=== PATIENT | male | born 1955 | race Caucasian/White ===

== ENCOUNTER 2023-03-10 09:43 | Outpatient (AMB) | payer OTHER, SELFPAY ==
--- NOTE | 2023-03-10 09:49 | MHC.PC.OV ---
Vital Signs 03/10/23 09:50 Height 6 ft Weight 214 lb BMI 29.0 BP 132/72 Blood Pressure Location Lt brachial Position Sitting Pulse 68 Pulse Source Pulse Oximeter Pulse Oximetry (%) 98 Oxygen Delivery Method Room Air Intake Visit Reasons: est care Intake Note: Patient is here as a new patient with concern of high blood pressure, left shoulder pain for 10 months, may have been from heavy lifting. Patient would like his meds refilled. Allergies No Known Allergies Allergy (Verified 03/10/23 09:52) Tobacco use date assessed: 03/10/23 Fall risk assessment: No Falls in past year Last assessed Fall Risk: 03/10/23 Dental Screening Dental Screen Date: 03/10/23 Did you have a dental visit in the last 12 months?: Yes Did you have a dental problem in the last 6 months where you did not have access to dental care?: No Was dental information given to patient?: Patient has dentist HPI est care HPI Details New patient Prior PCP:? Dr Valles [place] Last office visit/CPE: > 2 years Acute issue(s): L shoulder pain x10 months PMHx: Hypertension, Cardiology at [facility], HLD, DM, Neuropathy. SurgHx: R cataract, R 3rd finger FHx:Mom: CAD, [place]. Dad: Heart Diseae SocHx: Nonsmoker. EtOH 3 drinks a month. No drugs. [facility] Medical History (Updated 03/10/23 @ 11:28 by Allen Franco) Finger fracture, right Acute eczema High cholesterol High blood pressure Surgical History (Updated 03/10/23 @ 10:00 by Marielos Thompson CMA) History of right cataract surgery Family History (Updated 03/10/23 @ 10:01 by Marielos Thompson CMA) Mother Heart attack Social History (Updated 03/10/23 @ 10:04 by Marielos Thompson CMA) Household Members: Spouse Housing: House Are you a primary care tech to a significant other at home: No Do you presently have visiting nurse or other home services: No 75 years or older and lives alone: No Alcohol intake: current Patient Tobacco Use Status: Never used Tobacco e-Cigarette/Vaping Use: Never Used service: No Current occupational status: retired Cognitive needs: No Hearing needs: No Vision needs: No Questionnaire PHQ-9 Over the last 2 weeks, how often have you been bothered by any of the following problems? 1. Little interest or pleasure in doing things: not at all 2. Feeling down, depressed, or hopeless: not at all 3. Trouble falling or staying asleep, or sleeping too much: not at all 4. Feeling tired or having little energy: not at all 5. Poor appetite or overeating: not at all 6. Feeling bad about yourself - or that you are a failure or have let yourself or your family down: not at all 7. Trouble concentrating on things, such as reading the newspaper or watching television: not at all 8. Moving or speaking so slowly that other people could have noticed. Or the opposite - being so fidgety or restless that you have been moving around a lot more than usual: not at all 9. Thoughts that you would be better off or of hurting yourself in some way: not at all Total score: 0 Source: Developed by Drs. Hoang Ndiaye, Anita Pryor, Napoleon Cespedes and colleagues, with an educational chuck from [employer]. Thrive Questionnaire I am a: Patient What is your living situation today?: I have a steady place to live Within the past 12 months, did the food you bought not last and you didn't have the money to get more?: Never true Within the past 12 months, did you worry whether your food would run out before you got money to buy more?: Never true Do you have trouble paying for medicines?: No Do you have trouble getting transportation to medical appointments?: No Do you have trouble paying your heating and electricity bill?: No Do you have trouble taking care of your child, family member or friend?: No Do you have trouble with day-to-day activities such as bathing, preparing meals, shopping, managing finances, etc.?: No Are you currently unemployed and looking for a job?: No Are you interested in more education?: No AUDIT C Alcohol Use Questionnaire (AUDIT-C) 1. How often do you have a drink containing alcohol?: Monthly or less 2. How many drinks containing alcohol do you have on a typical day when you are drinking?: 1 or 2 3. How often do you have six or more drinks on one occasion?: Never Total Score: 1 MARTI-7 AMB Questionnaire MARTI-7 Date MARTI - 7 assessed: 03/10/23 Feeling nervous, anxious, or on edge: 0 = Not at all Not being able to stop or control worryin = Not at all Worrying too much about different things: 0 = Not at all Trouble relaxin = Not at all Being so restless that it is hard to sit still: 0 = Not at all Becoming easily annoyed or irritable: 0 = Not at all Feeling afraid as if something awful might happen: 0 = Not at all Total MARTI-7 score (0-4 normal; 5-9 mild; 10-14 moderate; 15-21 severe): 0 Source: Developed by Drs. Hoang Ndiaye, Anita Pryor, Napoleon Cespedes and colleagues, with an educational chuck from [employer]. Review of Systems Musc Details: L shoulder pain Physical exam (Primary Care) Vital Signs: Last Vital Signs Pulse 68 03/10/23 09:50 BP 132/72 03/10/23 09:50 Pulse Ox 98 03/10/23 09:50 Oxygen Delivery Method Room Air 03/10/23 09:50 BMI result Body Mass Index 29.0 Tobacco/Smoking Status: Tobacco use Status Tobacco use date assessed 03/10/23 03/10/23 10:10 Patient Tobacco Use Status Never used Tobacco 03/10/23 10:10 e-Cigarette/Vaping Use Never Used 03/10/23 10:10 PHQ-9: PHQ-9 Score PHQ-9: Total score 0 03/10/23 10:17 Assessment and Plan Assessment & Plan (1) High blood pressure: Code(s): I10 - Essential (primary) hypertension Plan: Blood pressure seems controlled on current medication regimen. Goal is less than 140/90; unclear if patient has any history of coronary artery disease in which case would prefer a goal of less than 130/80. Continue current medication regimen (2) Left shoulder pain: Code(s): M25.512 - Pain in left shoulder Plan: Mechanical left shoulder pain Pain with abduction and internal rotation. Also has some pain with passive abduction I suspect rotator cuff injury but also may have some Arthritis. Start physical therapy Will refer to ortho (3) Hyperlipidemia: Code(s): E78.5 - Hyperlipidemia, unspecified Plan: Hyperlipidemia and patient was prescribed statins in the past including Crestor. He did not tolerate this. Currently not on any medication for high cholesterol (4) Diabetes: Code(s): E11.9 - Type 2 diabetes mellitus without complications Plan: Patient recollects A1c in the 7s Check A1c. Will advise patient (5) Neuropathy: Code(s): G62.9 - Polyneuropathy, unspecified Plan: May have uncontrolled diabetes. Checking labs (6) Cerumen impaction: Code(s): H61.20 - Impacted cerumen, unspecified ear Plan: Can use Debrox drops (7) Jaw pain: Code(s): R68.84 - Jaw pain Plan: Slightly poor historian but patient notes that he gets some jaw pain with exertion. This goes away shortly after exertion. He acknowledges hypertension and is on 4 medications for this. He acknowledges hyperlipidemia and also diabetes. These are all risk factors for coronary artery disease. He has a strong family history of coronary artery disease. 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 Denies heart attack or coronary artery disease but seems to have had quite a few cardiac workups in the past. No recent workup. Concerned that exertional jaw pain represents an anginal symptom. EKG: Sinus rhythm with mild bradycardia. Normal axis, no hypertrophy, no ST-T-wave changes at rest. Told patient to stop any exertion if he has symptoms. If discomfort does not go away in a few minutes, he should go to the ED. Referred to Cardiology (8) Family history of early CAD: Code(s): Z82.49 - Family history of ischemic heart disease and other diseases of the circulatory system Plan: As above (9) Laboratory exam ordered as part of routine general medical examination: Code(s): Z00.00 - Encounter for general adult medical examination without abnormal findings Plan: Check labs Orders: Orders Comprehensive [place]. Panel Fast Today Z00.00 - Encounter for general adult medical examination without abnormal findings Lipid Panel Today Z00.00 - Encounter for general adult medical examination without abnormal findings Microalbumin, Random (w Creat) Today I10 - Essential (primary) hypertension Prostate Specific Antigen Scr Today Z12.5 - Encounter for screening for malignant neoplasm of prostate Complete Blood Count Auto Diff Today Z00.00 - Encounter for general adult medical examination without abnormal findings TSH reflex Free T4 Today Z00.00 - Encounter for general adult medical examination without abnormal findings UA and rflx microscopic Today Z00.00 - Encounter for general adult medical examination without abnormal findings Hemoglobin A1c Today R73.01 - Impaired fasting glucose AMB EKG-In Office Today I10 - Essential (primary) hypertension PT Evaluation and Treatment Today M25.512 - Pain in left shoulder Referrals Cardiology Referral E11.9 - Type 2 diabetes mellitus without complications, E78.5 - Hyperlipidemia, unspecified, I10 - Essential (primary) hypertension, R68.84 - Jaw pain, Z82.49 - Family history of ischemic heart disease and other diseases of the circulatory system Orthopedics Referral M25.512 - Pain in left shoulder Coding Level of Care Code New Pt Level 4 (89448) Diagnoses High blood pressure I10 Left shoulder pain M25.512 Hyperlipidemia E78.5 Diabetes E11.9 Neuropathy G62.9 Cerumen impaction H61.20 Jaw pain R68.84 Family history of early CAD Z82.49 Laboratory exam ordered as part of routine general medical examination Z00.00
[2023-03-10 09:50] VITALS: BP 132/72; PULSE 68; O2SAT 98; BMI 29.0
== END 2023-03-10 11:36 | disposition home or self-care (01) ==
PROVIDERS: Visit Provider Family Medicine
DX: I10 Essential (primary) hypertension (principal); E11.42 Type 2 diabetes mellitus with diabetic polyneuropathy; R68.84 Jaw pain; Z82.49 Family history of ischemic heart disease and other diseases of the circulatory system; M25.512 Pain in left shoulder; E78.5 Hyperlipidemia, unspecified; G62.9 Polyneuropathy, unspecified
CPT/HCPCS: 93000; 99204

== ENCOUNTER 2023-03-10 11:40 | Outpatient (REF) | payer OTHER, SELFPAY ==
[2023-03-10 14:27] LABS: MANUAL DIFF FLAG NO
[2023-03-10 14:41] LABS: Basophils Absolute Auto 0.1 X10*3/uL (0.0-0.2); Eosinophils Absolute Auto 0.2 X10*3/uL (0.0-0.4); Eosinophils Percent Auto 2.1 % (0-4); Hematocrit 48.2 % (42.0-52.0); Imm Gran Abs Auto 0.01 X10*3/uL (0.00-0.03); Imm Gran Pct Auto 0.1 % (0.0-0.4); Lymphocytes Percent Auto 27.9 % (20-40); Mean Corpuscular HGB Conc 33.2 g/dl (31.0-36.0); Mean Corpuscular Hemoglobin 28.7 pg (27.0-33.0); Mean Corpuscular Volume 86.4 fL (80.0-98.0); Mean Platelet Volume 10.3 fL (9.4-12.4); Monocytes Absolute Auto 0.9 X10*3/uL (0.1-1.2); Monocytes Percent Auto 12.3 % (2-11); Neutrophils Percent Auto 56.6 % (45-73); Platelet Count 271 X10*3/uL (160-400); Red Blood Count 5.58 X10*6/uL (4.60-5.80); Red Cell Distribution Width 13.2 % (11.0-16.0); White Blood Count 7.1 X10*3/uL (4.8-10.8)
[2023-03-10 14:44] LABS: Estimated Average Glucose 209 mg/dL; Hemoglobin A1c % 8.9 % (<6.0)
[2023-03-10 14:52] LABS: Appearance Urine Clear; Color Urine Yellow; Glucose Urine UA 500 mg/dL (Negative); Leukocyte Esterase Urine Negative (Negative); Nitrite Urine Negative (Negative); Urine Blood Negative (Negative); Urine Ketones Negative (Negative); Urine Protein Negative (Neg-Trace)
[2023-03-10 15:00] LABS: Alanine Aminotransferase 24 U/L (0-40); Albumin Level 4.6 g/dL (3.5-5.0); Alkaline Phosphatase 67 U/L (39-117); Anion Gap 15 (12-20); Aspartate Amino Transferase 18 U/L (5-37); Bilirubin Total 0.7 mg/dL (0.0-1.0); Blood Urea Nitrogen 14 mg/dL (9-16); Carbon Dioxide 26 mmol/L (22-29); Chloride 99 mmol/L (96-108); Cholesterol 294 mg/dL (<200); Estimated Glomerular Filt Rate > 60; Glucose Fasting 217 mg/dL (60-99); HDL Cholesterol 53 mg/dL (>40); LDL Cholesterol Calculated 217 mg/dL (<100); Potassium 3.8 mmol/L (3.3-5.1); Sodium 136 mmol/L (135-145); Total Protein 8.1 g/dL (6.5-8.0); Triglycerides 124 mg/dL (<150)
[2023-03-10 15:19] LABS: TSH reflex Free T4 1.46 uIU/mL (0.32-4.0)
[2023-03-10 15:36] LABS: Creatinine Urine 61.87 mg/dL; Microalbumin Urine < 5.0 mg/L
== END 2023-03-10 11:41 | disposition home or self-care (01) ==
LOC: HO.WFDLDS 11:40
PROVIDERS: Visit Provider Family Medicine
DX: Z00.00 Encounter for general adult medical examination without abnormal findings (principal); Z12.5 Encounter for screening for malignant neoplasm of prostate; I10 Essential (primary) hypertension; R73.01 Impaired fasting glucose
CPT/HCPCS: 36415; 80053; 80061; 81003; 82043; 82570; 83036; 84153; 84443; 85025

== ENCOUNTER 2023-03-23 08:13 | Outpatient (REF) | payer OTHER, SELFPAY | END 2023-03-23 08:14 | disposition home or self-care (01) | LOC: HO.HOSX 08:13 | PROVIDERS: Visit Provider Orthopaedic Surgery | DX: M75.42 Impingement syndrome of left shoulder (principal) | CPT/HCPCS: 73030 ==

== ENCOUNTER 2023-03-23 10:24 | Outpatient (AMB) | payer OTHER, SELFPAY ==
--- NOTE | 2023-03-23 11:01 | MHC.OFFVIS ---
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 The patient describes his pain as sharp and severe in nature. Most of the pain is along the lateral aspect of her shoulder. The patient states that he did injure his shoulder approximately 1 year ago while lifting a heavy box. The patient had acute onset of pain. Since that time he has had weakness when trying to lift his left hand above shoulder height. He has had multiple injections in the past. Most recent injection gave him minimal relief. He has also tried Tylenol and anti-inflammatory medicines which gave him only mild relief. He has done physical therapy for 12 weeks over the last 6 months which aggravated his pain. Allergies No Known Allergies Allergy (Verified 03/23/23 11:06) Medication List - Last Reconciled 03/23/23 by Maciej Rock MD amlodipine 10 mg PO DAILY 90 days losartan-hydrochlorothiazide 100-25 mg 1 tab PO DAILY 90 days metoprolol succinate ER 50 mg PO DAILY 90 days sildenafil 50 mg PO DAILY PRN [facility] Medical History (Updated 03/23/23 @ 11:02 by Maciej Rock MD) Finger fracture, right Acute eczema High cholesterol High blood pressure Surgical History (Updated 03/10/23 @ 10:00 by Marielos Thompson [facility]) History of right cataract surgery Family History (Updated 03/10/23 @ 10:01 by Marielos Thompson CMA) Mother Heart attack Social History Household Members: Spouse Housing: House Are you a primary day care supervisor to a significant other at home: No Do you presently have visiting nurse or other home services: No Alcohol intake: current Patient Tobacco Use Status: Never used Tobacco e-Cigarette/Vaping Use: Never Used service: No Current occupational status: retired 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 Cognitive needs: No Hearing needs: No Vision needs: No Physical Exam Vital Signs: BMI result Body Mass Index 29.0 Const Other: Well-nourished well-developed very friendly male awake alert and oriented x3 in no acute distress Extrem Other: Bilateral upper extremity examination shows good capillary refill, no skin lesions noted, normal sensation light touch Left shoulder examination shows decreased active range of motion but full passive range of motion when compared to his right shoulder, 4/5 strength with supraspinatus testing, positive impingement signs, tenderness over his acromioclavicular joint, no instability Results Reviewed Results Reviewed: X-rays of the patient's left shoulder show severe acromioclavicular joint narrowing, type 3 acromion, no acute bony abnormalities Assessment & Plan Assessment & Plan (1) Impingement syndrome of left shoulder: Code(s): M75.42 - Impingement syndrome of left shoulder Plan: Mr. Agudelo presents with left shoulder pain and weakness due to impingement syndrome, acromioclavicular joint arthritis and possible full-thickness rotator cuff tearing. Thus, I will send the patient for an MRI of his left shoulder for further evaluation. I will see him back once the MRI is completed to discuss the findings and treatment options. He will continue with his range of motion exercises in the meantime to prevent stiffness. Feel free to call me at any time should questions regarding his orthopedic management arise. I spent 22 minutes in reviewing the patient's records and imaging studies, seeing the patient and documenting in the medical record. Orders: Orders XR shoulder LT min 2V Today M25.512 - Pain in left shoulder MR shoulder LT wo con Today M75.42 - Impingement syndrome of left shoulder Coding Level of Care Code New Pt Level 2 (51096) Diagnoses Impingement syndrome of left shoulder M75.42
[2023-03-23 11:14] VITALS: BMI 29.0
== END 2023-03-23 11:28 | disposition home or self-care (01) ==
PROVIDERS: PCP Family Medicine; Visit Provider Orthopaedic Surgery
DX: M75.42 Impingement syndrome of left shoulder (principal)
CPT/HCPCS: 99202

== ENCOUNTER 2023-04-08 11:22 | Outpatient (REF) | payer OTHER, SELFPAY ==
--- NOTE | ~2023-04-08 | MR_ITS ---
EXAMINATION: MR SHOULDER WITHOUT CONTRAST, LEFT CLINICAL INFORMATION: Left shoulder pain. Impingement syndrome. COMPARISON: Left shoulder radiographs dated 03/23/2023. TECHNIQUE: Multisequence MR imaging of the left shoulder was obtained without contrast on a high-field strength scanner. FINDINGS: ROTATOR CUFF: Moderate supraspinatus tendinosis. Focal fraying/partial tearing just distal to the humeral head apex measuring up to 1.1 cm in ML dimension. Moderate infraspinatus and subscapularis tendinosis. Distal articular surface fraying/partial tearing measuring up to 3.2 cm in ML dimension. Moderate subscapularis muscle atrophy. BICEPS: Absence of the proximal long head biceps tendon, likely indicating a complete tear and retraction. CORACOACROMIAL ARCH: The undersurface of the acromion is curved with moderate subacromial spurring. Moderate acromioclavicular osteoarthritis. Fluid within subacromial subdeltoid bursa, which could indicate bursitis or be related to an occult full-thickness rotator cuff tendon defect. LABRUM/CAPSULE: Diffuse, heterogeneous signal throughout the superior and posterosuperior labrum, consistent with degenerative tearing. Linear fluid signal within the undersurface of the inferior labrum, consistent with a nondisplaced undersurface tear. Intact inferior joint capsule. GLENOHUMERAL JOINT/MARROW: Mild articular cartilage signal heterogeneity with small marginal osteophytes. Small joint effusion with synovitis. Inferior loose body measuring up to 0.6 cm. MR/MR shoulder LT wo con IMPRESSION: 1. Moderate supraspinatus tendinosis with focal fraying/partial tearing just distal to the humeral head apex measuring 1.1 cm in ML dimension. Moderate infraspinatus and subscapularis tendinosis with distal articular surface fraying/partial tearing. Moderate subscapularis muscle atrophy. 2. Complete tear and retraction of the proximal long head biceps tendon. 3. Moderate acromioclavicular osteoarthritis with moderate subacromial spurring. Fluid within the subacromial subdeltoid bursa, which could indicate bursitis or be related to an occult full-thickness rotator cuff tendon defect. 4. Diffuse degenerative tearing of the superior and posterosuperior labrum. Nondisplaced undersurface tear of the inferior labrum. 5. Mild glenohumeral osteoarthritis. Small joint effusion with synovitis. Inferior loose body measuring up to 0.6 cm.
== END 2023-04-08 11:23 | disposition home or self-care (01) ==
LOC: HO.MRI 11:22
PROVIDERS: PCP Family Medicine; Visit Provider Orthopaedic Surgery
DX: M75.42 Impingement syndrome of left shoulder (principal)
CPT/HCPCS: 73221

== ENCOUNTER 2023-04-14 13:02 | Outpatient (AMB) | payer OTHER, SELFPAY ==
--- NOTE | 2023-04-14 13:15 | A.OFFPC_ITS ---
Vital Signs 04/14/23 13:17 Height 6 ft Weight 216 lb 4 oz BMI 29.3 BP 128/64 Blood Pressure Location Lt brachial Position Sitting Respiration 13 Pulse 62 Pulse Source Pulse Oximeter Temp 97.9 F Temp Source Temporal Artery Scan Pulse Oximetry (%) 99 Oxygen Delivery Method Room Air Intake Visit Reasons: sore throat,runny nose Intake Note: Patient states that he has been experiencing sore throat, runny nose and spitting up green phlegm when he coughs. Patient states that its mostly at night when his cough is persistent. Patient has a surgery on 05/26/23 for his left shoulder. 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 Accompanied by: Self / Same As Patient Allergies No Known Allergies Allergy (Verified 04/14/23 13:23) Tobacco use date assessed: 03/10/23 Fall risk assessment: No Falls in past year Last assessed Fall Risk: 04/14/23 Dental Screening Dental Screen Date: 04/14/23 Did you have a dental visit in the last 12 months?: Yes Did you have a dental problem in the last 6 months where you did not have access to dental care?: No Was dental information given to patient?: Patient has dentist HPI sore throat,runny nose HPI0 Details 68 y/o male presents today with complain ts of a sore throat, nasal congestion and persistent cough at night. He reports he has been spitting out green phlegm. Labs were drawn 03/10/23. Reviewed labs with pt. A1c 8.9% and pt states he had been prescribed metformin which he has not used yet. Triglycerides 124. TC 294. LDL 217. HDL 53. Elevated PSA. 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 Hoang Ndiaye, Anita Pryor, Napoleon Cespedes and colleagues, with an educational chuck from [employer]. Review of Systems Const Denies chills, Denies fatigue, Denies fever(s), Denies headache(s) and Denies weakness ENT Denies dizziness, Denies headache(s), Reports nasal congestion and Reports sore throat Card Denies chest pain, Denies lightheadedness, Denies dyspnea and Denies other (Palpitations) Resp Reports cough, Denies dyspnea, Denies wheezing and Denies other ( shortness of breath) Musc Denies numbness and Denies tingling Neuro Denies dizziness, Denies headache(s), Denies numbness, Denies tingling, Denies paresthesias and Denies weakness Psych Denies anxiety and Denies depression Endo Denies fatigue Aller/Immun Denies wheezing Physical exam (Primary Care) Vital Signs: Last Vital Signs Temp 97.9 F 04/14/23 13:17 Pulse 62 04/14/23 13:17 Resp 13 04/14/23 13:17 BP 128/64 04/14/23 13:17 Pulse Ox 99 04/14/23 13:17 Oxygen Delivery Method Room Air 04/14/23 13:17 BMI result Body Mass Index 29.3 Tobacco/Smoking Status: Tobacco use Status Tobacco use date assessed 03/10/23 04/14/23 13:17 Patient Tobacco Use Status Never used Tobacco 04/14/23 13:17 e-Cigarette/Vaping Use Never Used 04/14/23 13:17 Const General: no acute distress and well developed Nutritional Appearance: well nourished Orientation/consciousness: patient oriented x3 HENMT Head: Yes normocephalic and Yes atraumatic Eyes General: appearance normal, both eyes and all related structures Pupils: Equal, round and reactive pupils present EOM: EOMs intact bilaterally Resp Other: Crackles bilateral bases Effort & Inspection: normal respiratory effort Cardio Rate: regular rate Rhythm: regular rhythm Heart sounds: S1 normal heart sound present, S2 normal heart sound present, no gallops, no murmurs and no rubs Neuro General: patient oriented x3 and gait normal Cranial nerves: Yes Equal, round and reactive pupils present Psych Affect: normal affect Assessment and Plan Assessment & Plan (1) Viral illness: Code(s): B34.9 - Viral infection, unspecified Plan: Viral?illness There?is?no?antibiotic?medication?for?viruses.??They?must?run?their?course.??Mos t?average?5-7?days?but?7-10?days?is?not?uncommon?and?up?to?14?d ays?is?still?possible.??A?cough?is?often?the?last?symptom?to?resolve?and?this?ca n?last?for?weeks?in?some?cases. Rest Hydrate?well?-??Drink?plenty?of?fluids.??Especially?water. Tylenol?or?ibuprofen?for?muscle?aches,?headache,?fever/discomfort Can?use?qhdd-[id number]-[id number]?medications?for?cough?such?as?Delsym?or?DayQuil.??Presc ription?cough?medicines?have?been?shown?to?be?no?better. Nasal?swab?for?COVID/flu/RSV?will?be?sent?to?the?lab (2) Abnormal lung sounds: Code(s): R09.89 - Other specified symptoms and signs involving the circulatory and res piratory systems Plan: Crackles?at?bilateral?bases left?worse?than?right Check?chest?x-ray Will?start?cephalexin. If?chest?x-ray?is?negative,?he?can?discontinue?antibiotic. Otherwise?finish?all?antibiotic?unless?there?is?a?problem.??Call?for?any?problem s (3) Left shoulder pain: Code(s): M25.512 - Pain in left shoulder Plan: Ongoing?left?shoulder?pain?and?now?followed?by?Dr. Rock, Ortho.??Plan?is?for?shoulder?arthroscopy?next?month. (4) Diabetes: Code(s): E11.9 - Type 2 diabetes mellitus without complications Plan: A1c?8.9%?shows?uncontrolled?diabetes He?was?given?metformin?in?the?past?but?has?not?been?taking?it. Sent?script?for?metformin?to?take?b.i.d..??Patient?somewhat?apprehensive?about?t aking?medicine?twice?a?day?but?will?try?this.??We?also?discussed?Trulicity (5) Elevated PSA: Code(s): R97.20 - Elevated prostate specific antigen [PSA] Plan: I?have?asked?him?to?repeat?the?PSA?level.??If?still?elevated,?will?refer?to?Urol ogy Orders: Orders SARS-CoV2/FLU/RSV Today B34.9 - Viral infection, unspecified, Z20.822 - Contact with and (suspected) exposure to COVID-19 XR chest 2V Today R09.89 - Other specified symptoms and signs involving the circulatory and respiratory systems Prostate Specific Antigen Scr Today R97.20 - Elevated prostate specific antigen [PSA], Z12.5 - Encounter for screening for malignant neoplasm of prostate Medications: New cephalexin 500 mg PO Q12H 20 caps 0RF 10 days metformin 500 mg PO BIDWMEAL 60 tabs 2RF 30 days Coding Level of Care Code Est Pt Level 4 (85244) Diagnoses Viral illness B34.9 Abnormal lung sounds R09.89 Left shoulder pain M25.512 Diabetes E11.9 Elevated PSA R97.20
[2023-04-14 13:17] VITALS: BP 128/64; PULSE 62; RESP 13; TEMP 36.6; O2SAT 99; BMI 29.3
== END 2023-04-14 14:08 | disposition home or self-care (01) ==
PROVIDERS: PCP Family Medicine; Visit Provider Family Medicine
DX: B34.9 Viral infection, unspecified (principal); R09.89 Other specified symptoms and signs involving the circulatory and respiratory systems; M25.512 Pain in left shoulder; E11.9 Type 2 diabetes mellitus without complications; R97.20 Elevated prostate specific antigen [PSA]
CPT/HCPCS: 99214

== ENCOUNTER 2023-04-14 13:45 | Outpatient (REF) | payer OTHER, SELFPAY ==
[2023-04-14 19:03] LABS: Influenza A PCR NEGATIVE (Negative); Influenza B PCR NEGATIVE (Negative); Resp Syncy Virus RNA Qual PCR NEGATIVE (Negative); SARS COV2 PCR INHOUSE NEGATIVE (Negative)
== END 2023-04-14 13:46 | disposition home or self-care (01) ==
LOC: HO.LAB 13:45
PROVIDERS: Visit Provider Family Medicine
DX: Z11.52 Encounter for screening for COVID-19 (principal); Z20.822 Contact with and (suspected) exposure to COVID-19; B34.9 Viral infection, unspecified
CPT/HCPCS: 0241U

== ENCOUNTER 2023-04-26 08:51 | Outpatient (REF) | payer OTHER, SELFPAY ==
--- NOTE | ~2023-04-26 | XR_ITS ---
EXAMINATION: XR CHEST CLINICAL INFORMATION: Cough x10 days COMPARISON: None available. TECHNIQUE: 2 views of the chest were obtained. FINDINGS: No significant abnormality is noted involving the heart, lungs, mediastinum, bony thorax or soft tissues. XR/XR chest 2V IMPRESSION: Unremarkable examination.
[2023-04-26 10:08] LABS: Prostate Specific Antigen Scr 3.76 ng/mL (<0.05-4.0)
== END 2023-04-26 08:52 | disposition home or self-care (01) ==
LOC: HO.LAB 08:51
PROVIDERS: PCP Family Medicine; Visit Provider Family Medicine
DX: Z12.5 Encounter for screening for malignant neoplasm of prostate (principal); R97.20 Elevated prostate specific antigen [PSA]; R09.89 Other specified symptoms and signs involving the circulatory and respiratory systems; M75.42 Impingement syndrome of left shoulder
CPT/HCPCS: 36415; 71046; 84153

== ENCOUNTER 2023-04-26 10:07 | Outpatient (AMB) | payer OTHER, SELFPAY ==
[2023-04-26 10:25] VITALS: BMI 29.3
--- NOTE | 2023-04-26 10:25 | A.OFFVIS_ITS ---
Intake Vital Signs 04/26/23 10:25 Height 6 ft Weight 216 lb BMI 29.3 Intake Visit Reasons: Pre-Lt Shld Intake Note: Jarod 68 yr old male presents for a new patient visit for his Left shoulder pain and weakness. The patient describes his pain as sharp and severe in nature. Most of the pain is along the lateral aspect of her shoulder. The patient states that he did injure his shoulder approximately 1 year ago while lifting a heavy box. The patient had acute onset of pain. Since that time he has had weakness when trying to lift his left hand above shoulder height. He has had multiple injections in the past. Most recent injection gave him minimal relief. He has also tried Tylenol and anti-inflammatory medicines which gave him only mild relief. He has done physical therapy for 12 weeks over the last 6 months which aggravated his pain. Allergies No Known Allergies Allergy (Verified 04/26/23 10:26) Medication List - Last Reconciled 04/26/23 by Maciej Rock MD amlodipine 10 mg PO DAILY 90 days cephalexin 500 mg PO Q12H 10 days losartan-hydrochlorothiazide 100-25 mg 1 tab PO DAILY 90 days metformin 500 mg PO BIDWMEAL 30 days metoprolol succinate ER 50 mg PO DAILY 90 days sildenafil 50 mg PO DAILY PRN PFSH Medical History Finger fracture, right Acute eczema High cholesterol High blood pressure Surgical History History of right cataract surgery Family History Mother Heart attack Social History Household Members: Spouse Housing: House Are you a primary manager medicare marketing to a significant other at home: No Do you presently have visiting nurse or other home services: No 75 years or older and lives alone: No Alcohol intake: current Patient Tobacco Use Status: Never used Tobacco e-Cigarette/Vaping Use: Never Used service: No Current occupational status: retired 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 Cognitive needs: No Hearing needs: No Vision needs: No Physical Exam Vital Signs: BMI result Body Mass Index 29.3 Const Other: Well-nourished well-developed very friendly male awake alert and oriented x3 in no acute distress Lungs - clear to auscultation bilaterally with symmetric expansion Cardiovascular exam - regular rate and rhythm Abdominal exam - soft nontender nondistended Extrem Other: Bilateral upper extremity examination shows good capillary refill, no skin lesions noted, normal sensation light touch Left shoulder examination shows slightly decreased range of motion when compared to his right shoulder, 4+ out of 5 strength with supraspinatus testing, positive impingement signs, tenderness over his acromioclavicular joints, no instability Results Reviewed Results Reviewed: MRI of the patient's left shoulder show severe acromioclavicular joint narrowing, a type 3 acromion, signal change within the supraspinatus tendon due to rotator cuff tendinosis versus a small tear Assessment & Plan Assessment & Plan (1) Impingement syndrome of left shoulder: Code(s): M75.42 - Impingement syndrome of left shoulder Plan Mr. Agudelo presents with left shoulder pain due to impingement syndrome, acromioclavicular joint arthritis and rotator cuff tendinosis versus a small tear. I had a lengthy discussion with the patient regarding the treatment options. At this point he has failed continued non operative treatments. The risks and benefits of left shoulder surgery were discussed at length with the patient. The patient wishes to proceed. Surgery will most likely involve left shoulder diagnostic arthroscopy with distal clavicle excision, acromioplasty and rotator cuff repair showed a full-thickness tear be found at the time of his surgery. I did give the patient a prescription for Percocet at his preoperative appointment. I will see the patient back 2-3 weeks following his surgery for his 1st postoperative appointment. The patient will follow-up as instructed. Feel free to call me at any time should questions regarding his orthopedic management arise. I spent 22 minutes in reviewing the patient's records and imaging studies, seeing the patient and documenting in the medical record. Medications: New oxycodone-acetaminophen 5-325 mg (Percocet) Partial Fill upon patient request. 2 tabs PO Q4H PRN 40 tabs 0RF pain Coding Level of Care Code Est Pt Level 2 (70255) Diagnoses Impingement syndrome of left shoulder M75.42
== END 2023-04-26 11:40 | disposition home or self-care (01) ==
LOC: HO.HOS 10:07
PROVIDERS: PCP Family Medicine; Visit Provider Orthopaedic Surgery
DX: M75.42 Impingement syndrome of left shoulder (principal)
CPT/HCPCS: 99212

== ENCOUNTER 2023-04-27 15:17 | Outpatient (AMB) | payer OTHER, SELFPAY ==
--- NOTE | 2023-04-27 15:24 | MHC.PC.OV ---
Vital Signs 04/27/23 15:27 Height 6 ft Weight 210 lb BMI 28.5 BP 112/68 Blood Pressure Location Lt brachial Position Sitting Respiration 13 Pulse 70 Pulse Source Pulse Oximeter Temp 97.7 F Temp Source Oral Pulse Oximetry (%) 98 Oxygen Delivery Method Room Air Intake Visit Reasons: still feeling sick after med is finish Intake Note: Patient finished Cephlaxin on Monday and is still feeling sick. Patient reports productive cough with yellow and green mucus. Cough is accompanied by a rattling noise. Patient denies feeling out of breath. Patient reports cough worsens at night. Patient obtained a chest xray yesterday which was unremarkable. Director Of Occupational Therapy Required: No Accompanied by: Self / Same As Patient Allergies No Known Allergies Allergy (Verified 04/27/23 15:42) Medication List - Last Reconciled 04/27/23 by Ese Bills CNP amlodipine 10 mg PO DAILY 90 days losartan-hydrochlorothiazide 100-25 mg 1 tab PO DAILY 90 days metformin 500 mg PO BIDWMEAL 30 days metoprolol succinate ER 50 mg PO DAILY 90 days oxycodone-acetaminophen 5-325 mg (Percocet) 2 tabs PO Q4H PRN sildenafil 50 mg PO DAILY PRN Tobacco use date assessed: 03/10/23 HPI HPI Comments History of Present Illness Details 68-year-old male presents with complaints of continued intermittent productive cough with clear phlegm. He notes that the cough wakes him up from his sleep sometimes at night. He notes that his other symptoms have subsided. He was treated for viral illness and above along sounds almost 2 weeks ago. Chest x-ray was normal. Viral testing was negative for COVID, flu, and RSV. He completed 10-day course of cephalexin. [facility] Medical History Finger fracture, right Acute eczema High cholesterol High blood pressure Surgical History History of right cataract surgery Family History Mother Heart attack Social History Household Members: Spouse Housing: House Are you a primary district manager primary care sales to a significant other at home: No Do you presently have visiting nurse or other home services: No 75 years or older and lives alone: No Alcohol intake: current Patient Tobacco Use Status: Never used Tobacco e-Cigarette/Vaping Use: Never Used service: No Current occupational status: retired 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 Hoang Ndiaye, Anita Pryor, Napoleon Cespedes and colleagues, with an educational chuck from [employer]. Review of Systems Const Details: Const Denies chills, Denies fatigue, Denies fever(s), Denies headache(s) and Denies weakness ENT Reports as per HPI Card Denies chest pain, Denies lightheadedness, Denies dyspnea and Denies other (Palpitations) Resp Reports cough, Denies dyspnea, Denies wheezing and Denies other ( shortness of breath) GI Denies abdominal pain, Denies melena, Denies hematochezia, Denies change in bowel habits, Denies dyspepsia and Denies nausea Denies hematuria and Denies dysuria Musc Denies abnormal gait, Denies myalgias, Denies arthralgias, Denies numbness and Denies tingling Skin/Breast Denies rash, Denies unusual bruising and Denies wounds Neuro Denies abnormal gait, Denies dizziness, Denies headache(s), Denies memory loss, Denies numbness, Denies Sensory deficit (Neuro), Denies tingling and Denies weakness Psych Denies anxiety, Denies depression, Denies memory loss Endo Denies cold intolerance, Denies fatigue, Denies heat intolerance, Denies polydipsia and Denies polyuria Aller/Immun Denies wheezing Physical exam (Primary Care) Vital Signs: Last Vital Signs Temp 97.7 F 04/27/23 15:27 Pulse 70 04/27/23 15:27 Resp 13 04/27/23 15:27 BP 112/68 04/27/23 15:27 Pulse Ox 98 04/27/23 15:27 Oxygen Delivery Method Room Air 04/27/23 15:27 BMI result Body Mass Index 28.5 Tobacco/Smoking Status: Tobacco use Status Tobacco use date assessed 03/10/23 04/27/23 15:25 Patient Tobacco Use Status Never used Tobacco 04/27/23 15:25 e-Cigarette/Vaping Use Never Used 04/27/23 15:25 Const Other: General: no acute distress and well developed Nutritional Appearance: well nourished Orientation/consciousness: patient oriented x3 HENMT Head is normocephalic Bilateral ear canal and TM are normal Nasal turbinates and oropharynx are pink and moist Sinuses are nontender with palpation No auricular or cervical lymphadenopathy Eyes General: appearance normal, both eyes and all related structures Pupils: Equal, round and reactive pupils present EOM: EOMs intact bilaterally Resp Effort & Inspection: normal respiratory effort Auscultation: clear to auscultation bilaterally Cardio Rate: regular rate Rhythm: regular rhythm Heart sounds: S1 normal heart sound present, S2 normal heart sound present, no gallops, no murmurs and no rubs GI Palpation (GI): No Abdominal aortic bruit present, Soft to palpation, nontender, No hepatosplenomegaly present and No Rebound tenderness present Auscultation: normal bowel sounds General: Yes no CVA tenderness Back/Spine/Pelvis Back: no CVA tenderness Cervical Spine: cervical ROM normal and No Cervical spine tenderness Thoracic/Lumbar Spine: thoraco-lumbar ROM normal, No pain with thoraco-lumbar ROM, No thoracic spinal tenderness and No lumbar spinal tenderness Extrem General: Yes normal to inspection, No edema and No calf tenderness Skin General: warm and dry. Normal skin color. Normal skin turgor Neuro General: patient oriented x3, gait normal and no focal neuro deficit Cranial nerves: Yes Equal, round and reactive pupils present Cognition (Neuro): normal cognition Gait exam (Neuro): Normal gait present Sensory Exam: No Sensory deficit (Neuro) Psych Appearance: grossly normal Affect: normal affect Attitude: cooperative Thought process: Normal thought process present Assessment and Plan Assessment & Plan (1) Cough: Code(s): R05.9 - Cough, unspecified Qualifiers: Cough type: acute Qualified Code(s): R05.1 - Acute cough Plan: Likely viral illness though possibly allergies No exam evidence of bacterial infection No cough noted throughout the visit Viral illness There is no antibiotic medication for viruses.? They must run their course.? Most average 5-7 days but 7-10 days is not uncommon and up to 14 days is still possible.? A cough is often the last symptom to resolve and this can last for weeks in some cases. Rest Hydrate well -? Drink plenty of fluids.? Especially water. Tylenol or ibuprofen for muscle aches, headache, fever/discomfort Benzonatate as prescribed Recent chest x-ray and COVID-19/RSV tests were negative Return for new or worsening symptoms Verbalized understanding and agreed with treatment plan. Medications: New benzonatate 200 mg PO BID PRN 20 caps 0RF cough Coding Level of Care Code Est Pt Level 3 (88002) Diagnoses Acute cough R05.1 Cough type: acute
[2023-04-27 15:27] VITALS: BP 112/68; PULSE 70; RESP 13; TEMP 36.5; O2SAT 98; BMI 28.5
== END 2023-04-27 16:03 | disposition home or self-care (01) ==
PROVIDERS: PCP Family Medicine; Visit Provider Nurse Practitioner Family
DX: R05.1 Acute cough (principal)
CPT/HCPCS: 99213

== ENCOUNTER 2023-05-26 05:55 | Day surgery (SDC) | payer OTHER, SELFPAY ==
[2023-05-23 14:50] VITALS: BMI 28.5
--- NOTE | 2023-05-25 11:37 | P.CONAN_ITS ---
Documented by User: Emiliana Argueta NP 05/25/23 11:39 HPI - Anesthesia Eval Consult details Narrative: 68yo M for Left Shoulder Arthroscopy,distal clavical excision,acromialplasty,poss rotator cuff repair PMFSH Active Problems Active Problems: All Active Problems (Updated 05/23/23 @ 14:48 by Viki Lincoln RN) Cough (Acute) Elevated PSA (Acute) Abnormal lung sounds (Acute) Viral illness (Acute) Impingement syndrome of left shoulder (Acute) Cerumen impaction (Acute) Diabetes (Acute) Neuropathy (Acute) Hyperlipidemia (Acute) Left shoulder pain (Acute) Laboratory exam ordered as part of routine general medical examination (Acute) High cholesterol (Acute) High blood pressure (Acute) Past Medical History Medical History Diabetes Finger fracture, right Acute eczema High cholesterol High blood pressure Family History Family History Mother Heart attack Surgical History Surgical History (Updated 05/26/23 @ 06:09 by Adriana Connors RN) Hx of hand surgery History of right cataract surgery Social History Social History Household Members: Spouse Housing: House Are you a primary district manager primary care sales to a significant other at home: No Do you presently have visiting nurse or other home services: No Alcohol intake: current Patient Tobacco Use Status: Never used Tobacco e-Cigarette/Vaping Use: Never Used Use of substances other than those prescribed or required for medical reasons: No Are you DNR?: No Advance Directives: No Advance Directives Information Provided: Yes service: No Current occupational status: retired 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 Cognitive needs: No Hearing needs: No Vision needs: No Meds Allergies Allergy/AdvReac Type Severity Reaction Status Date / Time No Known Allergies Allergy Verified 04/27/23 15:42 Active Medications: Current Medications Cefazolin Sodium/Dextrose (Ancef) 2 gm in 50 mls @ 100 mls/hr IV PREOP ONE Stop: 05/26/23 05:02 Home Medications Medication Instructions Recorded Confirmed Last Taken Type sildenafil 50 mg tablet 50 mg PO DAILY PRN Erectile 03/10/23 05/23/23 Unknown History Dysfunction Fish Oil PO DAILY 05/26/23 Unknown History cholecalciferol (vitamin D3) 50 150 mcg PO DAILY 05/26/23 05/26/23 Unknown History mcg (2,000 unit) capsule (Vitamin D3) Exam Height,Weight and Vital Signs: Height 6 ft Weight 95.254 kg Pertinent Lab Results Pertinent Lab Results: Laboratory Tests 03/10/23 11:42 WBC 7.1 Hgb 16.0 Hct 48.2 Plt Count 271 Sodium 136 Potassium 3.8 Chloride 99 Carbon Dioxide 26 BUN 14 Creatinine 1.00 Narrative Narrative: EKG 03/2023 SB with marked SA Assessment and Plan Assessment Anesthesia Assessment: Chart Reviewed Documented by User: Galdino Nazario MD 05/26/23 07:13 [facility] Past Medical History Medical History Diabetes Finger fracture, right Acute eczema High cholesterol High blood pressure Family History Family History Mother Heart attack Family history of problems with anesthesia: No Surgical History Surgical History (Updated 05/26/23 @ 06:09 by Adriana Connors RN) Hx of hand surgery History of right cataract surgery History of Problems with Anesthesia: No Social History Social History Household Members: Spouse Housing: House Are you a primary district manager primary care sales to a significant other at home: No Do you presently have visiting nurse or other home services: No Alcohol intake: current Patient Tobacco Use Status: Never used Tobacco e-Cigarette/Vaping Use: Never Used Use of substances other than those prescribed or required for medical reasons: No Are you DNR?: No Advance Directives: No Advance Directives Information Provided: Yes service: No Current occupational status: retired 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 Cognitive needs: No Hearing needs: No Vision needs: No Meds Allergies Allergy/AdvReac Type Severity Reaction Status Date / Time No Known Allergies Allergy Verified 04/27/23 15:42 Home Medications Medication Instructions Recorded Confirmed Last Taken Type sildenafil 50 mg tablet 50 mg PO DAILY PRN Erectile 03/10/23 05/23/23 Unknown History Dysfunction Fish Oil PO DAILY 05/26/23 Unknown History cholecalciferol (vitamin D3) 50 150 mcg PO DAILY 05/26/23 05/26/23 Unknown History mcg (2,000 unit) capsule (Vitamin D3) Exam Airway Mallampati Class: II TM Dist: >3cm Heart: rrr Lungs: cta Assessment and Plan Assessment Anesthesia Assessment: Anesthesia Plan Discussed Final Anesthetic Review Family History of Problems with Anesthesia: No History of Problems with Anesthesia: No NPO: Yes ASA Class: III Final Preanesthetic Review: No Changes in Pt Med Stat, Meds/Allgs Chart Reviewed, Consent Obtained/Reviewed and Anes Risks/Benef Reviewed Patient Risk: Intermediate Procedure Risk: Intermediate Anesthetic Plan Anesthetic Plan: GA, Regional Block and Agree w/ Assess. and Plan Disposition: Standard PACU
[2023-05-26] VITALS (7 sets, daily range): BP systolic 110–176; BP diastolic 55–74; PULSE 47–70; RESP 15–16; TEMP 36.1–36.9; O2SAT 94–99; BMI 28.8
[2023-05-26] MEDS: Lactated Ringers 1,000 ML 100 ML IVCONT (06:42)
[2023-05-26 06:48] LABS: Glucose, Whole Blood 205 mg/dL (60-115)
--- NOTE | 2023-05-26 09:18 | PM.OP ---
Brief Operative Note Date of Service: 05/26/23 Pre-op diagnosis: Left shoulder impingement syndrome, left shoulder acromioclavicular joint arthritis, left shoulder adhesive capsulitis Post-op diagnosis: same Procedure: Left shoulder diagnostic arthroscopy with left shoulder arthroscopic distal clavicle excision, left shoulder arthroscopic acromioplasty, left shoulder arthroscopic anterior capsular release, left shoulder manipulation under anesthesia Implants: none Surgeon: Maciej Rock MD Anesthesia: GLMA and regional Was an A/C Technician used for this Procedure?: No Estimated blood loss (mL): 10 Pathology: none sent Condition: stable Disposition: PACU
--- NOTE | 2023-05-26 09:19 | P.OP_ITS ---
Operative Note Operative Note Date of Service: 05/26/23 Narrative: After the patient was identified as Jarod Agudelo and his left shoulder was initialed by myself the patient was brought to the holding area where a left shoulder interscalene regional block was performed by the anesthesiologist in routine fashion. The patient was then brought to the operating room where general anesthesia was induced by the anesthesiologist in routine fashion. The patient was given 2 g of IV Ancef preoperatively for infection prophylaxis. Examination under anesthesia of the patient's left shoulder showed decreased range of motion when compared to the right shoulder. The patient's left should er had forward flexion to 100 degrees compared to 170 degrees, external rotation to 20 degrees compared to 60 degrees, and internal rotation to 40 degrees compared to 50 degrees. The patient was gently positioned in the beach chair position with all bony prominences well padded. The patient's left shoulder region and upper extremity were prepped and draped in sterile fashion. A formal time-out was completed. A #11 scalpel blade was used to make a posterior portal 2 cm inferior and 1 cm medial to the posterolateral corner of the acromion. Blunt trocar technique was used to enter the glenohumeral joint in routine fashion. An anterior portal was made just lateral to the coracoid process after proper positioning was confirmed using a spinal needle. Diagnostic arthroscopy showed diffuse grade 1 and 2 degenerative changes of the glenoid and humeral head articular surfaces. The articular surfaces were already smooth so no chondroplasty was indicated. There was no evidence of rotator cuff tearing. The biceps tendon was not identified. There was inflammation of the anterior joint capsule consistent with adhesive capsulitis. The ArthroCare Wand was then used to perform an anterior capsular release between the inferior border of the biceps tendon and the superior border of the subscapularis tendon. The arthroscope was then placed from the posterior portal into the subacromial space. A lateral portal was made 2 fingerbreadths lateral to the anterior lateral corner of the acromion. The ArthroCare Wand was used to ablate soft tissues along the undersurface of the acromion as well as to excise the coracoacromial ligament. There was a sharp spur along the undersurface of the acromion which was removed using the hooded bur. The arthroscope was then placed into the lateral portal and the acromioplasty was completed with the bur in the posterior portal using the posterior aspect of the acromion as a cutting block. The ArthroCare Wand was then brought in through the anterior portal and was used to ablate soft tissues along the acromioclavicular joint and distal clavicle. The posterior and superior ligamentous structures were left intact. A distal clavicle excision of 8 mm was performed using the hooded bur. Any remaining bursal tissue was removed using the arthroscopic shaver. The subacromial space was irrigated and then drained. All arthroscopic instruments were removed. A gentle manipulation under anesthesia was then performed. Full passive range of motion was easily obtained. The 3 portals were closed with 3-0 nylon interrupted suture. The subacromial space was injected with Marcaine. Dry sterile dressing was placed over all incisions. The patient's left upper extremity was placed into a sling. The patient was awoken and extubated in the operating room. The patient was transferred to the recovery room in stable condition.
--- NOTE | 2023-05-26 10:30 | PC.NURSE ---
spoke to patient and by telephone with reminder regarding what to expect with block and time as well as when it would be ok to take pain medication after 2pm.
== END 2023-05-26 10:16 | disposition home or self-care (01) ==
PROVIDERS: PCP Family Medicine; Visit Provider Orthopaedic Surgery
PROC: (CPT 29805; principal; 2023-05-26 07:30)
DX: M75.42 Impingement syndrome of left shoulder (principal); M19.012 Primary osteoarthritis, left shoulder; M75.02 Adhesive capsulitis of left shoulder; E11.9 Type 2 diabetes mellitus without complications; I10 Essential (primary) hypertension; E78.5 Hyperlipidemia, unspecified; Z79.84 Long term (current) use of oral hypoglycemic drugs; Z79.899 Other long term (current) drug therapy
CPT/HCPCS: 29826; 29824; 29825; 82947; J0131; J0171; J0690; J1100; J1885; J2371; J2405; J2704; J2795

== ENCOUNTER → 2023-05-26 05:55 | Outpatient (BNV) | payer OTHER, SELFPAY | PROVIDERS: PCP Family Medicine; Visit Provider Orthopaedic Surgery | DX: M75.42 Impingement syndrome of left shoulder (principal); M19.012 Primary osteoarthritis, left shoulder; M75.02 Adhesive capsulitis of left shoulder | CPT/HCPCS: 29824; 29825; 29826 ==

== ENCOUNTER 2023-06-02 10:41 | Outpatient (AMB) | payer OTHER, SELFPAY ==
--- NOTE | 2023-06-01 10:40 | MHC.PC.OV ---
Vital Signs 06/02/23 10:46 Height 5 ft 11 in Weight 207 lb BMI 28.9 BP 130/80 Blood Pressure Location Lt brachial Respiration 16 Pulse 49 L Pulse Source Pulse Oximeter Pulse Oximetry (%) 98 Oxygen Delivery Method Room Air Intake Visit Reasons: CPE with f/u labs and health maintenance Allergies No Known Allergies Allergy (Verified 06/02/23 10:47) Tobacco use date assessed: 03/10/23 HPI CPE with f/u labs and health maintenance HPI Details .................................... PFSH Medical History Diabetes Finger fracture, right Acute eczema High cholesterol High blood pressure Surgical History (Updated 05/26/23 @ 06:09 by Adriana Connors, RN) Hx of hand surgery History of right cataract surgery Family History Mother Heart attack Social History Household Members: Spouse Housing: House Are you a primary director day care center to a significant other at home: No Do you presently have visiting nurse or other home services: No 75 years or older and lives alone: No Alcohol intake: current Patient Tobacco Use Status: Never used Tobacco e-Cigarette/Vaping Use: Never Used service: No Current occupational status: retired 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 Hoang Ndiaye, Anita Pryor, Napoleon Cespedes and colleagues, with an educational chuck from [employer]. Physical exam (Primary Care) Vital Signs: Last Vital Signs Pulse 49 L 06/02/23 10:46 Resp 16 06/02/23 10:46 BP 130/80 06/02/23 10:46 Pulse Ox 98 06/02/23 10:46 Oxygen Delivery Method Room Air 06/02/23 10:46 BMI result Body Mass Index 28.9 Tobacco/Smoking Status: Tobacco use Status Tobacco use date assessed 06/02/23 06/02/23 10:49 Patient Tobacco Use Status Never used Tobacco 06/02/23 10:49 e-Cigarette/Vaping Use Never Used 06/02/23 10:49 Coding
--- NOTE | 2023-06-02 10:45 | MHC.PC.OV ---
Vital Signs 06/02/23 10:46 Height 5 ft 11 in Weight 207 lb BMI 28.9 BP 130/80 Blood Pressure Location Lt brachial Respiration 16 Pulse 49 L Pulse Source Pulse Oximeter Pulse Oximetry (%) 98 Oxygen Delivery Method Room Air Intake Visit Reasons: CPE with f/u labs and health maintenance Intake Note: Patient is here for his physical today, and he has a rash with burning on the right side of his face. Allergies No Known Allergies Allergy (Verified 06/02/23 10:47) Tobacco use date assessed: 06/02/23 Fall risk assessment: No Falls in past year Last assessed Fall Risk: 06/02/23 HPI CPE with f/u labs and health maintenance HPI Details 68 y/o male presents for a CPE with f/u labs and health maintenance. No recent labs to review. Last A1c 03/10/23 8.9%. He is on metformin 500mg b.i.d. Blood pressure today 130/80. He is on amlodipine 10mg, losartan-HCTZ 100-25mg and metoprolol 50mg daily. Pt has complaints of a rash on R side of his face. Pt reports recent surgery L shoulder and reports this is still sore. [facility] Medical History (Updated 06/02/23 @ 11:29 by Allen Franco) Diabetes Finger fracture, right Acute eczema High cholesterol High blood pressure Surgical History (Updated 05/26/23 @ 06:09 by Adriana Connors RN) Hx of hand surgery History of right cataract surgery Family History Mother Heart attack Social History Household Members: Spouse Housing: House Are you a primary childcare worker to a significant other at home: No Do you presently have visiting nurse or other home services: No 75 years or older and lives alone: No Alcohol intake: current Patient Tobacco Use Status: Never used Tobacco e-Cigarette/Vaping Use: Never Used service: No Current occupational status: retired 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 Hoang Ndiaye, Anita Pryor, Napoleon Cespedes and colleagues, with an educational chuck from [employer]. Review of Systems Const Denies chills, Denies fatigue, Denies fever(s), Denies headache(s) and Denies weakness Eyes Denies change in vision ENT Denies dizziness, Denies headache(s), Denies hearing loss, Denies nasal congestion, Denies sinus pain, Denies sinus pressure and Denies sore throat Card Denies chest pain, Denies lightheadedness, Denies dyspnea and Denies other (palpitations) Resp Denies cough, Denies dyspnea and Denies wheezing GI Denies abdominal pain, Denies melena, Denies hematochezia, Denies change in bowel habits, Denies dyspepsia and Denies nausea Denies hematuria and Denies dysuria Musc Denies abnormal gait, Denies myalgias, Denies arthralgias, Denies numbness and Denies tingling Skin/Breast Denies rash, Denies unusual bruising and Denies wounds Neuro Denies abnormal gait, Denies dizziness, Denies headache(s), Denies memory loss, Denies numbness, Denies Sensory deficit (Neuro), Denies tingling and Denies weakness Psych Denies anxiety, Denies depression and Denies memory loss Endo Denies cold intolerance, Denies fatigue, Denies heat intolerance, Denies polydipsia and Denies polyuria Jake/Lymph Denies easy bleeding and Denies easy bruising Aller/Immun Denies wheezing Physical exam (Primary Care) Vital Signs: Last Vital Signs Pulse 49 L 06/02/23 10:46 Resp 16 06/02/23 10:46 BP 130/80 06/02/23 10:46 Pulse Ox 98 06/02/23 10:46 Oxygen Delivery Method Room Air 06/02/23 10:46 BMI result Body Mass Index 28.9 Tobacco/Smoking Status: Tobacco use Status Tobacco use date assessed 06/02/23 06/02/23 10:49 Patient Tobacco Use Status Never used Tobacco 06/02/23 10:49 e-Cigarette/Vaping Use Never Used 06/02/23 10:49 Const General: no acute distress, well developed, alert and awake Nutritional Appearance: well nourished Orientation/consciousness: patient oriented x3 HENMT Head: Yes normocephalic and Yes atraumatic Ears: hearing grossly normal bilaterally and TM's normal bilaterally General nose exam: Normal external nose present and Normal nares present Mouth: Normal oral and palatal mucosa present and moist mucous membranes Teeth and gingiva: dentition normal Throat: Yes posterior oropharynx normal Eyes General: appearance normal, both eyes and all related structures Pupils: Equal, round and reactive pupils present and Pupil accommodation reflex normal EOM: EOMs intact bilaterally Neck Neck: Yes normal visual inspection, Yes no lymphadenopathy and Yes trachea midline Thyroid: Thyroid normal Carotids: no bruits Lymphatic: no lymphadenopathy noted Chest Chest palpation & inspection: normal inspection of the chest Resp Effort & Inspection: normal respiratory effort Auscultation: clear to auscultation bilaterally Cardio Rate: regular rate Rhythm: regular rhythm Heart sounds: S1 normal heart sound present, S2 normal heart sound present, no gallops, no murmurs and no rubs Bruits: no abdominal aortic bruits and no carotid bruits GI Palpation (GI): No Abdominal aortic bruit present, Soft to palpation, nontender, No hepatosplenomegaly present and No Rebound tenderness present Auscultation: normal bowel sounds General: Yes no CVA tenderness Back/Spine/Pelvis Back: no CVA tenderness Cervical Spine: cervical ROM normal and No Cervical spine tenderness Thoracic/Lumbar Spine: thoraco-lumbar ROM normal, No pain with thoraco-lumbar ROM, No thoracic spinal tenderness and No lumbar spinal tenderness Skin Lesions: no lesions Rashes: no rashes Trauma: no lacerations or abrasions Wounds: no wounds Nails: normal Neuro General: patient oriented x3 Cranial nerves: Yes Equal, round and reactive pupils present Cognition (Neuro): normal cognition Gait exam (Neuro): Normal gait present Motor exam (neuro): 5/5 motor strength present throughout Sensory Exam: No Sensory deficit (Neuro) Deep tendon reflexes (DTR's): Right patellar reflex intensity grade: 2+ and Left patellar reflex intensity grade: 2+ Extrem General: Yes normal to inspection and No edema Psych Appearance: grossly normal Affect: normal affect Attitude: cooperative Thought process: Normal thought process present Results AMB Hemoglobin A1c AMB Hemoglobin A1c 8.2 % Last Edit by Marielos Thompson CMA on 06/02/23 12:11 Results Reviewed Results Reviewed: Laboratory Last Values Hgb A1c (Clinic) 8.2 % (4.0-6.0) H 06/02/23 12:06 Assessment and Plan Assessment & Plan (1) Adult general medical examination: Code(s): Z00.00 - Encounter for general adult medical examination without abnormal findings Plan: Year?old?male?presents?for?complete?physical?exam Encouraged?healthy?diet?with?active?lifestyle?and?plenty?of?exercise (2) High blood pressure: Code(s): I10 - Essential (primary) hypertension Plan: Blood?pressure?is?controlled. Goal?is?less?than?140/90 Continue?current?medication (3) Diabetes: Code(s): E11.9 - Type 2 diabetes mellitus without complications Plan: A1c?8.2%.??Poor/uncontrolled.??Goal?is?less?than?7.0% Had?encouraged?him?to?resume?metformin?at?his?last?visit?but?he?says?he?has?not?done?so.??Wants?to?wait?until?the?new?year?to?begin?it?because?he?says?he?has?a?lot?of?things?going?on?right?now. After?some?discussion,?he?notes?that?he?would?be?more?willing?to?try?something?that?he?does?not?have?to?take?each?day?so?we?will?try?Trulicity. Risks/benefits?of?medication?were?discussed?with?the?patient (4) Hyperlipidemia: Code(s): E78.5 - Hyperlipidemia, unspecified Plan: Very?high?lipids. I?have?referred?him?to?cardiology?but?has?declined?this.??He?says?he?has?an?appointment?with?cardiology?at?[facility]?in?June Follow-up?with?Cardiology?as?recommended (5) Left shoulder pain: Code(s): M25.512 - Pain in left shoulder Plan: Ongoing?left?shoulder?pain.??He?had?recent?left?shoulder?surgery?and?this?should?continue?to?improve. (6) Rash: Code(s): R21 - Rash and other nonspecific skin eruption Plan: Rash?on?left-sided?space?which?appears?to?be?mild?eczema. Use?barrier?cream?with?no?dyes?or?perfumes Can?use?a?small?amount?of?hydrocortisone?cream?sparingly (7) Screening for prostate cancer: Code(s): Z12.5 - Encounter for screening for malignant neoplasm of prostate Plan: PSA back?in?normal?range?on?repeat Orders: Orders AMB Hemoglobin A1c Today Z13.9 - Encounter for screening, unspecified Medications: New dulaglutide (Trulicity) 0.75 mg (0.5 mL) subcut QWEEK 28 days 2 mL 2RF hydrocortisone 1% (Cortisone (hydrocortisone)) 1 appl topical BID 5 days PRN 28.35 grams 0RF skin irritation Refilled amlodipine 10 mg PO DAILY 90 days 90 tabs 4RF metoprolol succinate ER 50 mg PO DAILY 90 days 90 tabs 3RF losartan-hydrochlorothiazide 100-25 mg 1 tab PO DAILY 90 days 90 tabs 4RF Coding Level of Care Code Est Pt Level 3 (29032) Est Pt Prev Care >65y(96151) Diagnoses Adult general medical examination Z00.00 High blood pressure I10 Diabetes E11.9 Hyperlipidemia E78.5 Left shoulder pain M25.512 Rash R21 Screening for prostate cancer Z12.5
[2023-06-02 10:46] VITALS: BP 130/80; PULSE 49; RESP 16; O2SAT 98; BMI 28.9
== END 2023-06-02 12:16 | disposition home or self-care (01) ==
PROVIDERS: Visit Provider Family Medicine
DX: Z00.00 Encounter for general adult medical examination without abnormal findings (principal); I10 Essential (primary) hypertension; E11.69 Type 2 diabetes mellitus with other specified complication; E78.5 Hyperlipidemia, unspecified; M25.512 Pain in left shoulder; R21 Rash and other nonspecific skin eruption
CPT/HCPCS: 83036; 99213; 99397

== ENCOUNTER 2023-06-07 10:57 | Outpatient (AMB) | payer OTHER, SELFPAY ==
--- NOTE | 2023-06-07 11:07 | MHC.OFFVIS ---
Intake Intake Visit Reasons: PO-Lt Shld 05/26 Intake Note: Jarod a 68 year old male presents today for a post operative left shoulder , DOS 05/26/23 Patient reports he is doing well, states some soreness. Allergies No Known Allergies Allergy (Verified 06/07/23 11:30) Medication List - Last Reconciled 06/07/23 by Adam Martínez PA-C amlodipine 10 mg PO DAILY 90 days cholecalciferol (vitamin D3) (Vitamin D3) 150 mcg PO DAILY dulaglutide (Trulicity) 0.75 mg (0.5 mL) subcut QWEEK 28 days [Fish Oil PO DAILY] hydrocortisone 1% (Cortisone (hydrocortisone)) 1 appl topical BID PRN 5 days losartan-hydrochlorothiazide 100-25 mg 1 tab PO DAILY 90 days metformin 500 mg PO BIDWMEAL 30 days metoprolol succinate ER 50 mg PO DAILY 90 days sildenafil 50 mg PO DAILY PRN HPI PO-Lt Shld 05/26 HPI Details 68-year-old male who returns to the office today for post-op left shoulder , 05/26/[address] Rock. He states he has mild pain in his shoulder but is doing well overall. He also c/o pain overhead reaching till a certain point. He has no other concerns today. [facility] Medical History (Updated 06/02/23 @ 11:29 by Allen Franco) Diabetes Finger fracture, right Acute eczema High cholesterol High blood pressure Surgical History Hx of hand surgery History of right cataract surgery Family History Mother Heart attack Social History Household Members: Spouse Housing: House Are you a primary palliative care specialist to a significant other at home: No Do you presently have visiting nurse or other home services: No 75 years or older and lives alone: No Alcohol intake: current Patient Tobacco Use Status: Never used Tobacco e-Cigarette/Vaping Use: Never Used service: No Current occupational status: retired 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 No erythema or drainage. FF 95, ER to 45, IR to S1 Results Reviewed Results Reviewed: Brief Operative Note Date of Service: 05/26/23 Pre-op diagnosis: Left shoulder impingement syndrome, left shoulder acromioclavicular joint arthritis, left shoulder adhesive capsulitis Post-op diagnosis: same Procedure: Left shoulder diagnostic arthroscopy with left shoulder arthroscopic distal clavicle excision, left shoulder arthroscopic acromioplasty, left shoulder arthroscopic anterior capsular release, left shoulder manipulation under anesthesia Implants: none Surgeon: Maciej Rock MD Assessment & Plan Assessment & Plan (1) Impingement syndrome of left shoulder: Code(s): M75.42 - Impingement syndrome of left shoulder Plan Sutures removed today, steri strips applied. I discussed the importance of physical therapy to maintain his ROM, and work on some RTC strengthening and periscapular stabilization which he will proceed with. I would like to see him back in [address] Rock, sooner if needed. Orders: Orders PT Evaluation and Treatment Today M75.42 - Impingement syndrome of left shoulder Patient Instructions: Scribed for Adam Martínez PA-C, by Guerrero Yen medical anthropology director, on 06/07/2023 at 11:30 AM EST. Adam Gupat PA-C, have personally reviewed and agree with the information entered by the scribe. Coding Level of Care Code Global (00501) Diagnoses Impingement syndrome of left shoulder M75.42
== END 2023-06-07 11:43 | disposition home or self-care (01) ==
PROVIDERS: PCP Family Medicine; Visit Provider Physician Assistant
DX: M75.42 Impingement syndrome of left shoulder (principal)
CPT/HCPCS: 99024

== ENCOUNTER → 2023-06-07 10:57 | Outpatient (BNVA) | payer OTHER, SELFPAY | PROVIDERS: PCP Family Medicine; Visit Provider Physician Assistant ==

== ENCOUNTER 2023-07-05 11:28 | Outpatient (AMB) | payer OTHER, SELFPAY ==
[2023-07-05 11:31] VITALS: BMI 28.9
--- NOTE | 2023-07-05 11:31 | A.OFFVIS_ITS ---
Intake Vital Signs 07/05/23 11:31 Height 5 ft 11 in Weight 207 lb BMI 28.9 Intake Visit Reasons: PO-Lt shldr 05/26 DR-follow up Intake Note: Jarod is a 68 year old male who presents for a post operative appointment of Left shoulder , DOS 05/26/23 DR. Patient reports that his shoulder feels good but is still having some discomfort and states that his ROM is improved. He denies any fevers or chills. He has taken naproxen which gives him fairly good relief. Allergies No Known Allergies Allergy (Verified 07/05/23 11:34) Medication List - Last Reconciled 07/05/23 by Maciej Rock MD amlodipine 10 mg PO DAILY 90 days cholecalciferol (vitamin D3) (Vitamin D3) 150 mcg PO DAILY dulaglutide (Trulicity) 0.75 mg (0.5 mL) subcut QWEEK 28 days [Fish Oil PO DAILY] hydrocortisone 1% (Cortisone (hydrocortisone)) 1 appl topical BID PRN 5 days losartan-hydrochlorothiazide 100-25 mg 1 tab PO DAILY 90 days metformin 500 mg PO BIDWMEAL 30 days metoprolol succinate ER 50 mg PO DAILY 90 days naproxen 500 mg PO BID naproxen (Naprosyn) 500 mg PO Q12H PRN sildenafil 50 mg PO DAILY PRN PFSH Medical History Diabetes Finger fracture, right Acute eczema High cholesterol High blood pressure Surgical History History of arthroscopic surgery of shoulder Hx of hand surgery (05/26/23) History of right cataract surgery Family History Mother Heart attack Social History Household Members: Spouse Housing: House Are you a primary career developer to a significant other at home: No Do you presently have visiting nurse or other home services: No 75 years or older and lives alone: No Alcohol intake: current Patient Tobacco Use Status: Never used Tobacco e-Cigarette/Vaping Use: Never Used service: No Current occupational status: retired 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 Agudelo continues to do well after undergoing left shoulder arthroscopic surgery on 05/26/2023. He will continue with his home stretching program. He does not wish to go to formal physical therapy. The do's and don'ts of lifting were discussed at length with the patient. He will contact me prior to his follow-up appointment in 2-3 months should any questions or concerns arise. Feel free to call me at any time should questions regarding his orthopedic management arise. Medications: New naproxen (Naprosyn) 500 mg PO Q12H PRN 60 tabs 3RF pain Coding Level of Care Code Global (08823) Diagnoses Left shoulder pain M25.512
== END 2023-07-05 11:56 | disposition home or self-care (01) ==
PROVIDERS: PCP Family Medicine; Visit Provider Orthopaedic Surgery
DX: M25.512 Pain in left shoulder (principal)
CPT/HCPCS: 99024

== ENCOUNTER → 2023-07-05 11:28 | Outpatient (BNVA) | payer OTHER, SELFPAY | PROVIDERS: PCP Family Medicine; Visit Provider Orthopaedic Surgery ==

== ENCOUNTER 2023-10-11 11:00 | Outpatient (AMB) | payer OTHER, SELFPAY ==
[2023-10-11 11:06] VITALS: BMI 28.9
--- NOTE | 2023-10-11 11:06 | A.OFFVIS_ITS ---
Vital Signs 10/11/23 11:06 Height 5 ft 11 in Weight 207 lb BMI 28.9 Intake Visit Reasons: OV-Lt shldr 05/26 Intake Note: Jarod is a 68 year old male who presents for his post operative appointment Left shoulder , DOS 05/26/23 DREnid The patient reports mild intermittent discomfort in his left shoulder. He denies any fevers or chills. He states that he has been doing quite a bit of lifting with his left arm. He does not take any medicines for his discomfort. Allergies No Known Allergies Allergy (Verified 10/11/23 11:13) Medication List - Last Reconciled 10/11/23 by Maciej Rock MD amlodipine 10 mg PO DAILY 90 days cholecalciferol (vitamin D3) (Vitamin D3) 150 mcg PO DAILY dulaglutide (Trulicity) 0.75 mg (0.5 mL) subcut QWEEK 28 days [Fish Oil PO DAILY] hydrocortisone 1% (Cortisone (hydrocortisone)) 1 appl topical BID PRN 5 days losartan-hydrochlorothiazide 100-25 mg 1 tab PO DAILY 90 days metformin 500 mg PO BIDWMEAL 30 days metoprolol succinate ER 50 mg PO DAILY 90 days naproxen 500 mg PO BID naproxen (Naprosyn) 500 mg PO Q12H PRN sildenafil 50 mg PO DAILY PRN PFSH Medical History Diabetes Finger fracture, right Acute eczema High cholesterol High blood pressure Surgical History History of arthroscopic surgery of shoulder Hx of hand surgery (05/26/23) History of right cataract surgery Family History Mother Heart attack Social History Household Members: Spouse Housing: House Are you a primary respiratory care practitioner to a significant other at home: No Do you presently have visiting nurse or other home services: No 75 years or older and lives alone: No Alcohol intake: current Patient Tobacco Use Status: Never used Tobacco e-Cigarette/Vaping Use: Never Used service: No Current occupational status: retired 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 Cognitive needs: No Hearing needs: No Vision needs: No Physical Exam Vital Signs: BMI result Body Mass Index 28.9 Const Other: Well-nourished well-developed very friendly male awake alert and oriented x3 in no acute distress Extrem Other: Bilateral upper extremity examination shows good capillary refill, no skin lesions noted, normal sensation light touch Left shoulder examination shows almost full range of motion when compared to his right shoulder, minimal discomfort with resisted forward flexion, 5/5 strength with supraspinatus testing Assessment & Plan Assessment & Plan (1) Left shoulder pain: Code(s): M25.512 - Pain in left shoulder Category: Medical Plan Mr. Agudelo continues to do well after undergoing left shoulder arthroscopic surgery on 05/26/2023. Will continue with his range of motion exercises to prevent stiffness. The do's and don'ts of lifting were discussed at length with the patient. He will follow up with me on an as-needed basis should his symptoms not plateau at an unacceptable level over the next few months. Feel free to call me at any time should questions regarding his orthopedic management arise. I spent 22 minutes in reviewing the patient's records and imaging studies, seeing the patient and documenting in the medical record. Coding Level of Care Code Est Pt Level 2 (03371) Diagnoses Left shoulder pain M25.512
== END 2023-10-11 11:35 | disposition home or self-care (01) ==
PROVIDERS: PCP Family Medicine; Visit Provider Orthopaedic Surgery
DX: M25.512 Pain in left shoulder (principal)
CPT/HCPCS: 99213

== ENCOUNTER → 2023-10-11 11:00 | Outpatient (BNVA) | payer OTHER, SELFPAY | PROVIDERS: PCP Family Medicine; Visit Provider Orthopaedic Surgery ==

== ENCOUNTER 2024-01-22 08:43 | Outpatient (AMB) | payer OTHER, SELFPAY ==
--- NOTE | 2024-01-22 08:56 | AM.OFFWIN_ITS ---
Intake Vital Signs 3 01/22/24 09:02 01/22/24 09:08 Height 5 ft 11 in Weight 206 lb BMI 28.7 BP 156/80 H 128/70 Blood Pressure Location Lt brachial Lt brachial Position Sitting Sitting Respiration 16 Pulse 62 Pulse Source Pulse Oximeter Temp 98 F Temp Source Oral Pulse Oximetry (%) 95 Oxygen Delivery Method Room Air Intake Visit Reasons: est/ right leg tick bite/rash possibly Intake Note: Tick bite lower right leg. Requesting refill on Metoprolol, Amlodipine, Losartan-HCTZ, and Sildenafil. Patient Tobacco Use Status: Never used Tobacco Allergies No Known Allergies Allergy (Verified 01/22/24 09:19) Medication List - Last Reconciled 01/22/24 by KELLIE Marcelo- amlodipine 10 mg PO DAILY 90 days cholecalciferol (vitamin D3) (Vitamin D3) 150 mcg PO DAILY [Fish Oil PO DAILY] hydrocortisone 1% (Cortisone (hydrocortisone)) 1 appl topical BID PRN 5 days losartan-hydrochlorothiazide 100-25 mg 1 tab PO DAILY 90 days metoprolol succinate ER 50 mg PO DAILY 90 days naproxen (Naprosyn) 500 mg PO Q12H PRN sildenafil 50 mg PO DAILY PRN Do you need a note to return to daycare/school/sports/work: No HPI HPI Comments 2 History of Present Illness0 Details Pleasant 68-year-old male here today for concerns of a tick bite on his right lower extremity. Reports that yesterday he noticed a rash to the inner aspect of his right lower extremity. While he does not recall being bit by a tick specifically, he does admit to frequent exposures in the [place]. He denies any systemic symptoms. He also needs a refill on all of his medications. Exam Awake alert oriented Plan Treat with 21 days of doxycycline. Return to the office in 3-4 weeks to follow up with primary care. Monitor for systemic symptoms. Refill on all medications sent in today. This note is constructed using voice recognition software. While every effort has been made to ensure accuracy in actuarial clerk, still errors may have been included Sometimes, these errors may affect the content or meaning of the given sentence . [facility] Medical History Diabetes Finger fracture, right Acute eczema High cholesterol High blood pressure Surgical History History of arthroscopic surgery of shoulder Hx of hand surgery (05/26/23) History of right cataract surgery Family History Mother Heart attack Social History Household Members: Spouse Housing: House Are you a primary child care coordinator to a significant other at home: No Do you presently have visiting nurse or other home services: No 75 years or older and lives alone: No Alcohol intake: current Patient Tobacco Use Status: Never used Tobacco e-Cigarette/Vaping Use: Never Used service: No Current occupational status: retired 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 Erythematous rash with central clearing, non blanchable, scab noted at the 3 o'clock position, no tick. No edema, no warmth, no drainage. Assessment & Plan Assessment & Plan (1) Tick bite: Code(s): W57.XXXA - Bitten or stung by nonvenomous insect and other nonvenomous arthropods, initial encounter Qualifiers: Encounter type: initial encounter Site of tick bite: lower leg L aterality: right Qualified Code(s): S80.861A - Insect bite (nonvenomous), right lower leg, initial encounter; W57.XXXA - Bitten or stung by nonvenomous insect and other nonvenomous arthropods, initial encounter Plan: . (2) High blood pressure: Code(s): I10 - Essential (primary) hypertension Qualifiers: Hypertension type: primary hypertension Qualified Code(s): I10 - Essential (primary) hypertension Plan: . Medications: New 2 doxycycline hyclate 100 mg PO BID 21 days 42 caps 0RF Refilled 2 amlodipine 10 mg PO DAILY 90 days 90 tabs 0RF losartan-hydrochlorothiazide 100-25 mg 1 tab PO DAILY 90 days 90 tabs 0RF metoprolol succinate ER 50 mg PO DAILY 90 days 90 tabs 0RF Coding Level of Care Code Est Pt Level 4 (80054) Diagnoses Tick bite of right lower leg, initial encounter S80.861A; W57.XXXA Encounter type: initial encounter Site of tick bite: lower leg Laterality: right Primary hypertension I10 Hypertension type: primary hypertension
[2024-01-22 09:02] VITALS: BP 156/80; PULSE 62; RESP 16; TEMP 36.6; O2SAT 95; BMI 28.7
[2024-01-22 09:08] VITALS: BP 128/70
== END 2024-01-22 09:29 | disposition home or self-care (01) ==
PROVIDERS: PCP Family Medicine; Visit Provider Nurse Practitioner Family
DX: S80.861A Insect bite (nonvenomous), right lower leg, initial encounter (principal); W57.XXXA Bitten or stung by nonvenomous insect and other nonvenomous arthropods, initial encounter; I10 Essential (primary) hypertension
CPT/HCPCS: 99214

== ENCOUNTER 2024-02-05 13:22 | Outpatient (AMB) | payer OTHER, SELFPAY ==
--- NOTE | 2024-02-05 13:31 | MHC.PC.OV ---
Vital Signs 02/05/24 13:36 Height 5 ft 11 in Weight 213 lb 4 oz BMI 29.7 BP 120/60 Blood Pressure Location Lt brachial Position Sitting Respiration 18 Pulse 62 Pulse Source Pulse Oximeter Temp 98 F Temp Source Tympanic Pulse Oximetry (%) 97 Oxygen Delivery Method Room Air Intake Visit Reasons: F/U on tick bite / rash Intake Note: FOLLOW UP ON TICK BITE /RASH pt also requesting blood test to rule out lyme disease Allergies No Known Allergies Allergy (Verified 02/05/24 13:34) Medication List - Last Reconciled 02/05/24 by Chaitanya Gleason MD amlodipine 10 mg PO DAILY 90 days cholecalciferol (vitamin D3) (Vitamin D3) 150 mcg PO DAILY clotrimazole 1% (Antifungal (clotrimazole)) 1 appl topical BID 2 weeks doxycycline hyclate 100 mg PO BID 21 days [Fish Oil PO DAILY] glipizide 5 mg PO QAM 90 days hydrocortisone 1% (Cortisone (hydrocortisone)) 1 appl topical BID PRN 5 days losartan-hydrochlorothiazide 100-25 mg 1 tab PO DAILY 90 days metformin 1,000 mg (2 x 500 mg) PO DAILY 30 days metoprolol succinate ER 50 mg PO DAILY 90 days naproxen (Naprosyn) 500 mg PO Q12H PRN sildenafil 50 mg PO DAILY PRN Tobacco use date assessed: 06/02/23 Dental Screening Dental Screen Date: 04/14/23 HPI F/U on tick bite / rash HPI Details 68 y/o male presents to f/u tick bite/rash. Had been started on doxycycline by Diana Horton 01/22/24. Has complaints of an ongoing rash. Blood pressure today 120/60. He is on losartan-hydrochlorothiazide 100-25mg daily, amlodipine 10mg daily. Pt notes he had been unable to receive his Trulicity. [facility] Medical History Diabetes Finger fracture, right Acute eczema High cholesterol High blood pressure Surgical History History of arthroscopic surgery of shoulder Hx of hand surgery (05/26/23) History of right cataract surgery Family History Mother Heart attack Social History Household Members: Spouse Housing: House Are you a primary career development facilitator to a significant other at home: No Do you presently have visiting nurse or other home services: No 75 years or older and lives alone: No Alcohol intake: current Patient Tobacco Use Status: Never used Tobacco e-Cigarette/Vaping Use: Never Used service: No Current occupational status: retired 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 Hoang Ndiaye, Anita Pryor, Napoleon Cespedes and colleagues, with an educational chuck from [employer]. Review of Systems Const Denies chills, Denies fatigue, Denies fever(s), Denies headache(s) and Denies weakness ENT Denies dizziness and Denies headache(s) Card Denies dyspnea Resp Denies cough, Denies dyspnea, Denies wheezing and Denies other (shortness of breath) Musc Denies numbness and Denies tingling Skin/Breast Reports rash Neuro Denies dizziness, Denies headache(s), Denies numbness, Denies tingling and Denies weakness Psych Denies anxiety and Denies depression Endo Denies fatigue Aller/Immun Denies wheezing Physical exam (Primary Care) Vital Signs: Last Vital Signs Temp 98 F 02/05/24 13:36 Pulse 62 02/05/24 13:36 Resp 18 02/05/24 13:36 BP 120/60 02/05/24 13:36 Pulse Ox 97 02/05/24 13:36 Oxygen Delivery Method Room Air 02/05/24 13:36 BMI result Body Mass Index 29.7 Tobacco/Smoking Status: Tobacco use Status Tobacco use date assessed 06/02/23 02/05/24 13:34 Patient Tobacco Use Status Never used Tobacco 02/05/24 13:34 e-Cigarette/Vaping Use Never Used 02/05/24 13:34 Const General: well developed; No acute distress Nutritional Appearance: well nourished Orientation/consciousness: patient oriented x3 HENMT Head: Yes normocephalic and Yes atraumatic Eyes General: appearance normal, both eyes and all related structures Pupils: Equal, round and reactive pupils present EOM: EOMs intact bilaterally Resp Effort & Inspection: normal respiratory effort Neuro General: patient oriented x3 and gait normal Cranial nerves: Yes Equal, round and reactive pupils present Psych Affect: normal affect Assessment and Plan Assessment & Plan (1) Tick bite: Code(s): W57.XXXA - Bitten or stung by nonvenomous insect and other nonvenomous arthropods, initial encounter Plan: Check?Lyme?titers Already?on?doxycycline?from?the?walk-in (2) Rash: Code(s): R21 - Rash and other nonspecific skin eruption Plan: Rash?at?left?side?of?groin?is?more?consistent?with?a?yeast?infection?of?the?skin Start?clotrimazole Avoid?excess?moisture (3) High blood pressure: Code(s): I10 - Essential (primary) hypertension Qualifiers: Hypertension type: primary hypertension Qualified Code(s): I10 - Essential (primary) hypertension Plan: Blood?pressure?is?controlled.??Goal?is?less?than?140/90 Continue?current?medication (4) Diabetes: Code(s): E11.9 - Type 2 diabetes mellitus without complications Plan: Patient?notes?excessive?thirst?and?excessive?urination?which?he?thought?was?due?to?his?diuretic?in?his?blood?pressure?medication Discussed?with?patient?that?he?has?excessive?urination?is?much?more?likely?due?to?poorly?controlled?diabetes?as?he?has?discontinued?all?diabetes?medications. He?will?resume?taking?metformin.??He?does?not?want?to?take?this?twice?a?day?so?he?will?work?at?bringing?this?up?to?once?a?day.??Titrate?up?to?1000?mg?daily?if?possible. Will?also?give?him?a?script?for?glipizide. He?was?unable?to?get?Trulicity Orders: Orders Lyme IgG & IgM for CSF Today W57.XXXA - Bitten or stung by nonvenomous insect and other nonvenomous arthropods, initial encounter Medications: New glipizide 5 mg PO QAM 90 days 90 tabs 2RF clotrimazole 1% (Antifungal (clotrimazole)) 1 appl topical BID 2 weeks 45 grams 0RF Changed From metformin 500 mg PO BIDWMEAL 60 tabs 2RF 30 days To metformin 1,000 mg (2 x 500 mg) PO DAILY 30 days 60 tabs 2RF Coding Level of Care Code Est Pt Level 4 (90596) Diagnoses Tick bite W57.XXXA Rash R21 Primary hypertension I10 Hypertension type: primary hypertension Diabetes E11.9
[2024-02-05 13:36] VITALS: BP 120/60; PULSE 62; RESP 18; TEMP 36.6; O2SAT 97; BMI 29.7
== END 2024-02-05 14:20 | disposition home or self-care (01) ==
PROVIDERS: PCP Family Medicine; Visit Provider Family Medicine
DX: T63.481A Toxic effect of venom of other arthropod, accidental (unintentional), initial encounter (principal); R21 Rash and other nonspecific skin eruption; I10 Essential (primary) hypertension; E11.9 Type 2 diabetes mellitus without complications
CPT/HCPCS: 99214

== ENCOUNTER 2024-02-05 14:26 | Outpatient (REF) | payer OTHER, SELFPAY ==
[2024-02-08 06:54] LABS: Lyme Abs Screen <0.90 index
== END 2024-02-05 14:27 | disposition home or self-care (01) ==
LOC: HO.WFDLDS 14:26
PROVIDERS: Visit Provider Family Medicine
DX: T14.8XXA Other injury of unspecified body region, initial encounter (principal); W57.XXXA Bitten or stung by nonvenomous insect and other nonvenomous arthropods, initial encounter; Y93.9 Activity, unspecified; Y92.9 Unspecified place or not applicable; Y99.9 Unspecified external cause status
CPT/HCPCS: 36415; 86617; 86618

== ENCOUNTER 2024-04-11 08:07 | Outpatient (AMB) | payer BC, SELFPAY ==
--- NOTE | 2024-04-11 08:38 | MHC.PC.OV ---
Vital Signs 04/11/24 08:42 Height 5 ft 11 in Weight 213 lb 2 oz BMI 29.7 BP 143/80 H Blood Pressure Location Lt brachial Position Sitting Respiration 14 Pulse 74 Pulse Source Pulse Oximeter Temp 98.4 F Temp Source Temporal Artery Scan Pulse Oximetry (%) 95 Oxygen Delivery Method Room Air Intake Visit Reasons: F/U DIABETES/ HTN (See insurance) Intake Note: DM F/U and HTN Allergies No Known Allergies Allergy (Verified 04/11/24 08:39) Tobacco use date assessed: 06/02/23 Dental Screening Dental Screen Date: 04/14/23 HPI F/U DIABETES/ HTN (See insurance) HPI Details Patient?returns?to?follow-up?diabetes. He?says?he?did?not?receive?the?metformin?that?was?prescribed?however?this?was?sent?in?January?and?again?in?February?and?system?verifies?received?by?his?pharmacy. Had?a?long?discussion?regarding?the?natural?progression?of?diabetes. Patient?notes?excessive?thirst?and?urination.??Patient?notes?worsening?paresthesias?and?neuropathy?in?toes?and?feet He?is?concerned?about?cost?but?has?new?insurance?now. He?is?also?concerned?about?how?often?he?would?need?to?take?the?medication?and?was?interested?in?taking?a?weekly?medication?and?mentions?June [facility] Medical History Diabetes Finger fracture, right Acute eczema High cholesterol High blood pressure Surgical History History of arthroscopic surgery of shoulder Hx of hand surgery (05/26/23) History of right cataract surgery Family History Mother Heart attack Social History Household Members: Spouse Housing: House Are you a primary healthcare analyst to a significant other at home: No Do you presently have visiting nurse or other home services: No Alcohol intake: current Patient Tobacco Use Status: Never used Tobacco e-Cigarette/Vaping Use: Never Used service: No Current occupational status: retired 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 1. Little interest or pleasure in doing things: not at all 2. Feeling down, depressed, or hopeless: not at all 3. Trouble falling or staying asleep, or sleeping too much: not at all 4. Feeling tired or having little energy: not at all 5. Poor appetite or overeating: not at all 6. Feeling bad about yourself - or that you are a failure or have let yourself or your family down: not at all 7. Trouble concentrating on things, such as reading the newspaper or watching television: not at all 8. Moving or speaking so slowly that other people could have noticed. Or the opposite - being so fidgety or restless that you have been moving around a lot more than usual: not at all 9. Thoughts that you would be better off or of hurting yourself in some way: not at all Total score: 0 Source: Developed by Drs. Hoang Ndiaye, Anita Pryor, Napoleon Cespedes and colleagues, with an educational chuck from [employer]. Thrive Questionnaire Date Thrive assessed: 04/11/24 I am a: Patient What is your living situation today?: I have a steady place to live THRIVE Score: 0 MARTI-7 AMB Questionnaire MARTI-7 Date MARTI - 7 assessed: 03/10/23 Source: Developed by Drs. Hoang Ndiaye, Anita Pryor, Napoleon Cespedes and colleagues, with an educational chuck from [employer]. Review of Systems Const Denies chills, Denies fatigue, Denies fever(s), Denies headache(s) and Denies weakness ENT Denies dizziness and Denies headache(s) Card Denies chest pain, Denies lightheadedness, Denies dyspnea and Denies other (Palpitations) Resp Denies cough, Denies dyspnea, Denies wheezing and Denies other ( shortness of breath) Musc Denies numbness and Reports tingling Neuro Denies dizziness, Denies headache(s), Denies numbness, Reports tingling, Reports paresthesias and Denies weakness Psych Denies anxiety and Denies depression Endo Denies fatigue Aller/Immun Denies wheezing Physical exam (Primary Care) Vital Signs: Last Vital Signs Temp 98.4 F 04/11/24 08:42 Pulse 74 04/11/24 08:42 Resp 14 04/11/24 08:42 BP 143/80 H 04/11/24 08:42 Pulse Ox 95 04/11/24 08:42 Oxygen Delivery Method Room Air 04/11/24 08:42 BMI result Body Mass Index 29.7 Tobacco/Smoking Status: Tobacco use Status Tobacco use date assessed 06/02/23 04/11/24 08:39 Patient Tobacco Use Status Never used Tobacco 04/11/24 08:39 e-Cigarette/Vaping Use Never Used 04/11/24 08:39 PHQ-9: PHQ-9 Score PHQ-9: Total score 0 04/11/24 08:39 Thrive Assessment: Date of Thrive Assessment Date Thrive assessed 04/11/24 04/11/24 08:39 Const General: no acute distress and well developed Nutritional Appearance: well nourished Orientation/consciousness: patient oriented x3 HENMT Head: Yes normocephalic and Yes atraumatic Eyes General: appearance normal, both eyes and all related structures Pupils: Equal, round and reactive pupils present EOM: EOMs intact bilaterally Resp Effort & Inspection: normal respiratory effort Auscultation: clear to auscultation bilaterally Cardio Rate: regular rate Rhythm: regular rhythm Heart sounds: S1 normal heart sound present, S2 normal heart sound present, no gallops, no murmurs and no rubs Neuro General: patient oriented x3 and gait normal Cranial nerves: Yes Equal, round and reactive pupils present Psych Affect: normal affect Results AMB Hemoglobin A1c AMB Hemoglobin A1c 11.4 % Last Edit by MORAIMA Mayer on 04/11/24 08:57 Results Reviewed Results Reviewed: Laboratory Last Values Hgb A1c (Clinic) 11.4 % (4.0-6.0) H 04/11/24 08:50 Coding Level of Care Code Est Pt Level 4 (23978) Diagnoses Diabetes E11.9 Neuropathy G62.9 Assessment & Plan Assessment & Plan (1) Diabetes: Code(s): E11.9 - Type 2 diabetes mellitus without complications Category: Medical Plan: He?will?trial?Mounjaro?if?he?is?able?to?get?the?medication. Will?also?use?glipizide?q.a.m.?with?this. If?he?is?unable?to?get?Mounjaro,?he?will?take?metformin?and?glipizide He?can?titrate?up?with?the?metformin?if?he?is?taking?this. Work?on?diet?lower?in?sugars?and?starches Work?on?weight?loss Work?on?exercise (2) Neuropathy: Code(s): G62.9 - Polyneuropathy, unspecified Category: Medical Plan: Likely?secondary?to?diabetes?and?I?encouraged?him?to?work?on?controlling?his?diabetes. Orders: Orders AMB Hemoglobin A1c Today E11.9 - Type 2 diabetes mellitus without complications Medications: New tirzepatide (Mounjaro) for 4 weeks 2.5 mg (0.5 mL) subcut QWEEK 28 days 2 mL 3RF Refilled glipizide 5 mg PO QAM 90 days 90 tabs 2RF metformin 1,000 mg (2 x 500 mg) PO DAILY 30 days 60 tabs 2RF
[2024-04-11 08:42] VITALS: BP 143/80; PULSE 74; RESP 14; TEMP 36.9; O2SAT 95; BMI 29.7
== END 2024-04-11 09:37 | disposition home or self-care (01) ==
PROVIDERS: PCP Family Medicine; Visit Provider Family Medicine
DX: E11.9 Type 2 diabetes mellitus without complications (principal); G62.9 Polyneuropathy, unspecified

== ENCOUNTER → 2024-04-11 08:10 | Outpatient (BNVA) | payer BC, SELFPAY | PROVIDERS: PCP Family Medicine; Visit Provider Family Medicine | DX: E11.9 Type 2 diabetes mellitus without complications (principal); G62.9 Polyneuropathy, unspecified | CPT/HCPCS: 83036; 96127 ==

== ENCOUNTER 2024-05-28 13:40 | Outpatient (AMB) | payer BC, SELFPAY ==
--- NOTE | 2024-05-28 13:52 | A.OFFPC_ITS ---
Vital Signs 05/28/24 13:57 Height 5 ft 11 in Weight 215 lb BMI 30.0 BP 130/60 Blood Pressure Location Rt brachial Position Sitting Respiration 14 Pulse 49 L Pulse Source Pulse Oximeter Temp 97.9 F Temp Source Oral Pulse Oximetry (%) 95 Oxygen Delivery Method Room Air Intake Visit Reasons: 1 month DM Intake Note: 1 month follow up for DM Allergies No Known Allergies Allergy (Verified 05/28/24 13:54) Medication List - Last Reconciled 05/28/24 by Chaitanya Gleason MD amlodipine 10 mg PO DAILY 90 days cholecalciferol (vitamin D3) (Vitamin D3) 150 mcg PO DAILY clotrimazole 1% (Antifungal (clotrimazole)) 1 appl topical BID 2 weeks [Fish Oil PO DAILY] glipizide 5 mg PO QAM 90 days hydrocortisone 1% (Cortisone (hydrocortisone)) 1 appl topical BID PRN 5 days losartan-hydrochlorothiazide 100-25 mg 1 tab PO DAILY 90 days metformin 1,000 mg (2 x 500 mg) PO DAILY 30 days metoprolol succinate ER 50 mg PO DAILY 90 days naproxen (Naprosyn) 500 mg PO Q12H PRN sildenafil 50 mg PO DAILY PRN tirzepatide (Mounjaro) 2.5 mg (0.5 mL) subcut QWEEK 28 days Tobacco use date assessed: 06/02/23 Dental Screening Dental Screen Date: 04/14/23 HPI 1 month DM HPI Details Patient?presents?for?follow-up?of?diabetes.??His?last?A1c Was?11.4%. Had?worked?out?a?treatment?plan?with?patient.??However,?he?has?started?none?of?h is?medications. [facility] Medical History Diabetes Finger fracture, right Acute eczema High cholesterol High blood pressure Surgical History History of arthroscopic surgery of shoulder Hx of hand surgery (05/26/23) History of right cataract surgery Family History Mother Heart attack Social History Household Members: Spouse Housing: House Are you a primary pulmonary care nurse to a significant other at home: No Do you presently have visiting nurse or other home services: No 75 years or older and lives alone: No Alcohol intake: current Patient Tobacco Use Status: Never used Tobacco e-Cigarette/Vaping Use: Never Used service: No Current occupational status: retired 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 Cognitive needs: No Hearing needs: No Vision needs: No Questionnaire Thrive Questionnaire Date Thrive assessed: 04/11/24 I am a: Patient What is your living situation today?: I have a steady place to live Within the past 12 months, did the food you bought not last and you didn't have the money to get more?: I choose not to answer this question Within the past 12 months, did you worry whether your food would run out before you got money to buy more?: I choose not to answer this question Do you have trouble paying for medicines?: I choose not to answer this question Do you have trouble getting transportation to medical appointments?: I choose not to answer this question Do you have trouble paying your heating and electricity bill?: I choose not to answer this question Do you have trouble taking care of your child, family member or friend?: I choose not to answer this question Do you have trouble with day-to-day activities such as bathing, preparing meals, shopping, managing finances, etc.?: I choose not to answer this question Are you currently unemployed and looking for a job?: I choose not to answer this question Are you interested in more education?: I choose not to answer this question Please select the resources that you would like help with: None Currently or been in a relationship where the following occur: I choose not to answer THRIVE Score: 0 AUDIT C Alcohol Use Questionnaire (AUDIT-C) 1. How often do you have a drink containing alcohol?: Never Total Score: 0 MARTI-7 AMB Questionnaire MARTI-7 Date MARTI - 7 assessed: 03/10/23 Source: Developed by Drs. Hoang Ndiaye, Anita Pryor, Napoleon Cespedes and colleagues, with an educational chuck from [employer]. Review of Systems Const Denies chills, Denies fatigue, Denies fever(s), Denies headache(s) and Denies weakness ENT Denies dizziness and Denies headache(s) Card Denies chest pain, Denies lightheadedness, Denies dyspnea and Denies other (Palpitations) Resp Denies cough, Denies dyspnea, Denies wheezing and Denies other ( shortness of breath) Musc Denies numbness and Reports tingling Neuro Details: Tingling?and?burning?in?toes?and?feet Also?erectile?dysfunction Denies dizziness, Denies headache(s), Denies numbness, Reports tingling, Reports paresthesias and Denies weakness Psych Denies anxiety and Denies depression Endo Denies fatigue Aller/Immun Denies wheezing Physical exam (Primary Care) Vital Signs: Last Vital Signs Temp 97.9 F 05/28/24 13:57 Pulse 49 L 05/28/24 13:57 Resp 14 05/28/24 13:57 BP 130/60 05/28/24 13:57 Pulse Ox 95 05/28/24 13:57 Oxygen Delivery Method Room Air 05/28/24 13:57 BMI result Body Mass Index 30.0 Tobacco/Smoking Status: Tobacco use Status Tobacco use date assessed 06/02/23 05/28/24 13:52 Patient Tobacco Use Status Never used Tobacco 05/28/24 13:52 e-Cigarette/Vaping Use Never Used 05/28/24 13:52 Thrive Assessment: Date of Thrive Assessment Date Thrive assessed 04/11/24 05/28/24 13:52 Currently or been in a relationship where the following occur: I choose not to answer Const General: no acute distress and well developed Nutritional Appearance: well nourished Orientation/consciousness: patient oriented x3 [facility] Head: Yes normocephalic and Yes atraumatic Eyes General: appearance normal, both eyes and all related structures Pupils: Equal, round and reactive pupils present EOM: EOMs intact bilaterally Resp Effort & Inspection: normal respiratory effort Auscultation: clear to auscultation bilaterally Cardio Rate: regular rate Rhythm: regular rhythm Heart sounds: S1 normal heart sound present, S2 normal heart sound present, no gallops, no murmurs and no rubs Neuro General: patient oriented x3 and gait normal Cranial nerves: Yes Equal, round and reactive pupils present Psych Affect: normal affect Coding Level of Care Code Est Pt Level 4 (57457) Diagnoses DM neuro manif type II E11.49 Assessment & Plan Assessment & Plan (1) DM neuro manif type II: Code(s): E11.49 - Type 2 diabetes mellitus with other diabetic neurological complication Category: Medical Plan: Uncontrolled?diabetes?with?neuropathy Patient?has?not?started?any?medications?yet He?will?start?metformin.??He?has?been?approved?for June?and?he?will?start?this?Monday. Had?also?prescribed?glipizide?but?patient?is?having?difficulty?with?the?complexi ty?of?the?regimen.??Will?stop?glipizide. Needs?close?follow-up.??Will?return?in?1?month Medications: Changed From sildenafil administer 30 minutes to 4 hours before activity 50 mg PO DAILY PRN Erectile Dysfunction To sildenafil administer 30 minutes to 4 hours before activity 50 mg PO DAILY 30 days PRN 10 tabs 4RF Erectile Dysfunction Refilled metoprolol succinate ER 50 mg PO DAILY 90 days 90 tabs 4RF losartan-hydrochlorothiazide 100-25 mg 1 tab PO DAILY 90 days 90 tabs 4RF amlodipine 10 mg PO DAILY 90 days 90 tabs 4RF
[2024-05-28 13:57] VITALS: BP 130/60; PULSE 49; RESP 14; TEMP 36.6; O2SAT 95
--- OUTSIDE RECORDS SUMMARY | 2024-05-29 21:44 | XMS_ITS | Continuity of Care Document ---
Author Organization [facility] [employer] [facility] Address [address] [address] Phone Care Team Providers Care Mill Supervisor Name Role Phone Yusuf Contreras MD Unavailable [...] Diagnoses Date Provider Providers Copied on Encounter [facility] [employer] [facility], [address], [id number] , tel:[phone] [facility] No Information 3 Diane Goldberg. [address], [id number] , . tel:[phone] [facility], [address] [place] [address], [id number] , [place] tel: [phone] [facility] No Information 3 Rahul Valdez. [address] [place] [address], [address], [place]. tel: [phone] Offic[facility]pt [facility], [address] [place] [address], [id number] , [place] tel: [phone] [facility] cough (chief complaint) Problem List (chief complaint) Acute upper respiratory infection, unspecifiedEssential (primary) hypertension 2 Rahul Valdez. [address] [place] [address], [address], [place]. tel: [phone] Offic[facility]pt [facility], [address] [place] [address], [id number] , [place] tel: [phone] [facility] cold symptoms (chief complaint) COVID-19Essential (primary) hypertension Sep- 1 Ildefonso Mars. [address] [place] [address], [id number] , [place]. tel: [phone] Offic/outpt [facility], [address] [place] [address], [id number] , [place] tel: [phone] [facility] R knee pain (chief complaint) Problem List (chief complaint) OverweightEssential (primary) hypertensionPain in right kneeArrhythmia 1 Diane Goldberg. [address] [place] [address], [id number] , [place]. tel: [phone] Family History Family Member Type Diagnosis Age At Onset Mother Problem (finding) hypercholesterolemia Mother Problem (finding) hypertension Payers Payer name Insurance type Covered democrat ID Authoriza tion(s) No Information Social History Type Description Quantity Date Captured Comments Alcohol Use Details Unknown Caffeine Use Details Unknown Tobacco Use Status No Information Smoking Status No Information Sex Male Chief Complaint And Reason For Visit No Information Reason For Referral Reason For Referral No Information Plan Of Treatment Date Type Action Status Goal FIT. Due on due Goal CT-Colonography. Due on due Goal Sigmoidoscopy. Due on due Goal DEXA Scan. Due on due Goal Zoster vaccine. Due on due Goal Glaucoma Screening. Due on due Goal Prevnar 13. Due on due Goal Pneumovax 23. Due on 2022 due Goal Hepatitis C Test ing Baby [place]. Due on due Goal H&P. Due on [...] due Goal FOBT. Due on due Goal Td vaccine. Due on due Goal Glaucoma Screening. Due on due Goal Sigmoidoscopy. Due on due Goal Colonoscopy. Due on 023 due Goal H&P. Due on due Goal Zoster vaccine. Due on due Goal DEXA Scan. Due on due Goal CT-Colonography. Due on due Goal FIT. Due on due Goal FIT-DNA. Due on due Goal Hepatitis C screening. Due o n due Goal Unhealthy drug u se screening. Due on due Goal Prevnar 13. Due on due Goal FOBT. Due on due Goal Influenza vaccine. Due on due Goal Hepatitis C Test ing Baby [place]. Due on due Goal PSA. Due on due Goal Zoster vaccine (). Due on due Goal Cologuard. Due on due Goal Pneumovax 23. Due on 2022 due Goal Sigmoidoscopy. Due on due Goal PSA. Due on due Goal Pneumovax 23. Due on 2021 due Goal Glaucoma Screening. Due on A due Goal Td vaccine. Due on due Goal Zoster vaccine (1st). Due on due Goal Hepatitis C Test ing Baby [place]. Due on due Goal Influenza vaccine. Due on Ap due Goal Zoster vaccine. Due on due Goal Prevnar 13. Due on due Goal Colonoscopy. Due on 022 due Goal DEXA Scan. Due on 2 due Goal H&P. Due on due Goal Cologuard. Due on 2 due Goal FOBT. Due on due Goal Zoster vaccine. Due on due Goal Zoster vaccine (). Due on due Goal Glaucoma Screening. Due on due Goal Cologuard. Due on due Goal DEXA Scan. Due on due Goal Colonoscopy. Due on due Goal FOBT. Due on due Goal Influenza vaccine. Due on due Goal PSA. Due on due Goal Prevnar 13. Due on due Goal Pneumovax 23. Due on 2020 due Goal Td vaccine. Due on due Goal H&P. Due on due Goal Hepatitis C Test ing Baby [place]. Due on due Goal Sigmoidoscopy. Due on due Goal Colonoscopy. Due on due Goal Influenza vaccine. Due on due Goal FOBT. Due on due Goal DEXA Scan. Due on due Goal Cologuard. Due on due Goal Glaucoma Screening. Due on due Goal Zoster vaccine (). Due on due Goal Zoster vaccine. Due on due Goal Sigmoidoscopy. Due on due Goal Hepatitis C Test ing Baby [place]. Due on due Goal H&P. Due on due Goal Td vaccine. Due on due Goal Pneumovax 23. Due on 2020 due Goal Prevnar 13. Due on due Goal PSA. Due on due Future Order: Lab Order CBC W/DI FF,W/PLT (3000), Scheduled for: , Scheduled for: Sent Future Order: Lab Order COMPREHE NSIVE METABOLIC PANEL ([id number]), Scheduled for: , Scheduled for: Sent Future Order: Lab Order LIPID PA MERCEDES ([id number]), Scheduled for: , Scheduled for: Sent Future Order: Lab Order TSH W RE FLEX TO FREE T4 ([id number]), Scheduled for: , Scheduled for: Sent History Of Present Illness Encounter Date Complaint History Of Prese nt Illness Problem List Experiencing pro ductive cough with green/yellow mucus, nasal drainage, nasal congestion, and sore throat. Temperature today was 98F. The highest he noticed over the past 3 days was 99.4F.Denies chest pain and shortness of breath. TELEHEALTH VISIT:Physical location of the provider: In officePhysical location of the patient: homeOther participants of the visit: noneQuality of video was excellent.Quality of audio was excellent. cough Onset: 3 days ag o. The problem has improved. Associated symptoms include cough, fever and sore throat. Pertinent negatives include chills, dyspnea, fatigue and wheezing. cold symptoms (comments) Physica l location of the provider: In officePhysical location of the patient: HomeOther participants of the visit: Yulia MCKEON Quality of video was good.Quality of audio was good. cold symptoms Onset: on 2020. Context: Covid+ 03/06/21. Associated symptoms include chills, fatigue, night sweats and loss of appetite. Pertinent negatives include fever. Additional information: Was taking a 325mg aspirin until yesterday. R knee pain Problem List Here to saundra vogel carePrevious PCP: me years ago moved to [place] was seeing a provider in [place] Dr. 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 Related to COVID-19 Dr. 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 Weight loss can usually occur [...]
== END 2024-05-28 14:43 | disposition home or self-care (01) ==
PROVIDERS: PCP Family Medicine; Visit Provider Family Medicine
DX: E11.49 Type 2 diabetes mellitus with other diabetic neurological complication (principal)

== ENCOUNTER → 2024-05-28 13:40 | Outpatient (BNVA) | payer BC, SELFPAY | PROVIDERS: PCP Family Medicine; Visit Provider Family Medicine ==

== ENCOUNTER 2024-07-05 13:35 | Outpatient (AMB) | payer BC, SELFPAY ==
--- NOTE | 2024-07-05 13:39 | MHC.PC.OV ---
Vital Signs 07/05/24 13:43 07/05/24 14:43 Height 5 ft 11 in Weight 210 lb BMI 29.3 BP 178/83 H 148/80 H Blood Pressure Location Rt brachial Lt brachial Position Sitting Sitting Respiration 13 Pulse 56 Pulse Source Pulse Oximeter Temp 97.7 F Temp Source Skin Pulse Oximetry (%) 98 Oxygen Delivery Method Room Air Intake Visit Reasons: Follow-up?diabetes?with?neuropathy, erectile?dys Intake Note: follow up on diabetes Skid Worker Required: No Allergies No Known Allergies Allergy (Verified 07/05/24 13:39) Tobacco use date assessed: 06/02/23 Dental Screening Dental Screen Date: 04/14/23 HPI Follow-up?diabetes?with?neuropathy, erectile?dys HPI Details 69 y/o male presents to f/u diabetes, erectile dysfunction. BP today 140/80. He is on amlodipine 10mg, losartan-HCTZ 100-25mg daily. He notes he is currently not taking anything for his diabetes and is reluctant to restart his diabetes meds. A1c today 10.4%. HPI Comments History of Present Illness Details Documentation assistance for Chaitanya Gleason MD, was provided by Allen Franco,? Wide Load Escort on 07/05/2024 at 2:12 PM EST. I, Dr. Gleason, have read, observed, and verified documentation. [facility] Medical History Diabetes Finger fracture, right Acute eczema High cholesterol High blood pressure Surgical History History of arthroscopic surgery of shoulder Hx of hand surgery (05/26/23) History of right cataract surgery Family History Mother Heart attack Social History Household Members: Spouse Housing: House Are you a primary team primary care physician to a significant other at home: No Do you presently have visiting nurse or other home services: No 75 years or older and lives alone: No Alcohol intake: current Patient Tobacco Use Status: Never used Tobacco e-Cigarette/Vaping Use: Never Used service: No Current occupational status: retired 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 2. Feeling down, depressed, or hopeless: not at all [id number] - PHQ-9 Billing: Patient declined-do not bill Source: Developed by Drs. Hoang Ndiaye, Anita Pryor, Napoleon Cespedes and colleagues, with an educational chuck from [employer]. Thrive Questionnaire Date Thrive assessed: 07/05/24 MARTI-7 AMB Questionnaire MARTI-7 Date MARTI - 7 assessed: 03/10/23 Source: Developed by Drs. Hoang Ndiaye, Anita Pryor, Napoleon Cespedes and colleagues, with an educational chuck from [employer]. Review of Systems Const Denies chills, Denies fatigue, Denies fever(s), Denies headache(s) and Denies weakness ENT Denies dizziness and Denies headache(s) Card Denies chest pain, Denies lightheadedness, Denies dyspnea and Denies other (Palpitations) Resp Denies cough, Denies dyspnea, Denies wheezing and Denies other ( shortness of breath) Musc Denies numbness and Denies tingling Neuro Denies dizziness, Denies headache(s), Denies numbness, Denies tingling, Denies paresthesias and Denies weakness Psych Denies anxiety and Denies depression Endo Denies fatigue Aller/Immun Denies wheezing Physical exam (Primary Care) Vital Signs: Last Vital Signs Temp 97.7 F 07/05/24 13:43 Pulse 56 07/05/24 13:43 Resp 13 07/05/24 13:43 BP 178/83 H 07/05/24 13:43 Pulse Ox 98 07/05/24 13:43 Oxygen Delivery Method Room Air 07/05/24 13:43 BMI result Body Mass Index 29.3 Tobacco/Smoking Status: Tobacco use Status Tobacco use date assessed 06/02/23 07/05/24 13:41 Patient Tobacco Use Status Never used Tobacco 07/05/24 13:41 e-Cigarette/Vaping Use Never Used 07/05/24 13:41 Thrive Assessment: Date of Thrive Assessment Date Thrive assessed 07/05/24 07/05/24 13:41 Const General: no acute distress and well developed Nutritional Appearance: well nourished Orientation/consciousness: patient oriented x3 [facility] Head: Yes normocephalic and Yes atraumatic Eyes General: appearance normal, both eyes and all related structures Pupils: Equal, round and reactive pupils present EOM: EOMs intact bilaterally Resp Effort & Inspection: normal respiratory effort Auscultation: clear to auscultation bilaterally Cardio Rate: regular rate Rhythm: regular rhythm Heart sounds: S1 normal heart sound present, S2 normal heart sound present, no gallops, no murmurs and no rubs Neuro General: patient oriented x3 and gait normal Cranial nerves: Yes Equal, round and reactive pupils present Psych Affect: normal affect Results AMB Hemoglobin A1c AMB Hemoglobin A1c 10.4 % Last Edit by Swapnil Moreno MA on 07/05/24 13:58 Results Reviewed Results Reviewed: Laboratory Last Values Hgb A1c (Clinic) 10.4 % (4.0-6.0) H 07/05/24 13:39 Coding Level of Care Code Est Pt Level 4 (19008) Diagnoses Diabetes E11.9 Erectile dysfunction N52.9 Primary hypertension I10 Hypertension type: primary hypertension Assessment & Plan Assessment & Plan (1) Diabetes: Code(s): E11.9 - Type 2 diabetes mellitus without complications Category: Medical Plan: A1c now 10.4%, a little improved. Goal?is?less?than?7% Patient?has?tried?making?some?lifestyle?changes?but?has?not?started?any?medications?for?diabetes. Had?a?long?discussion?again?with?him?regarding?his?medications. Hopefully?he?will?begin?these. Close?follow-up?in?1?month (2) Erectile dysfunction: Code(s): N52.9 - Male erectile dysfunction, unspecified Category: Medical Plan: We?discussed?that?erectile?dysfunction?is?worsened?by?poor?blood?sugar?control. As?above?encouraged?good?blood?sugar?control Can?continue?sildenafil (3) High blood pressure: Code(s): I10 - Essential (primary) hypertension Category: Medical Qualifiers: Hypertension type: primary hypertension Qualified Code(s): I10 - Essential (primary) hypertension Plan: Blood?pressure?was?significantly?high?on?presentation?and?improved?with?relaxation. He?had?only?taken?his?medication?recently Take?medicine?as?prescribed Avoid?salt/sodium Work?on?weight?loss Will?follow No?medication?changes?today Orders: Orders AMB Hemoglobin A1c Today E11.9 - Type 2 diabetes mellitus without complications
[2024-07-05 13:43] VITALS: BP 178/83; PULSE 56; RESP 13; TEMP 36.5; O2SAT 98; BMI 29.3
[2024-07-05 14:43] VITALS: BP 148/80
== END 2024-07-05 14:45 | disposition home or self-care (01) ==
PROVIDERS: PCP Family Medicine; Visit Provider Family Medicine
DX: E11.9 Type 2 diabetes mellitus without complications (principal); N52.9 Male erectile dysfunction, unspecified; I10 Essential (primary) hypertension

== ENCOUNTER → 2024-07-05 13:35 | Outpatient (BNVA) | payer BC, SELFPAY | PROVIDERS: PCP Family Medicine; Visit Provider Family Medicine | DX: E11.9 Type 2 diabetes mellitus without complications (principal); N52.9 Male erectile dysfunction, unspecified; I10 Essential (primary) hypertension | CPT/HCPCS: 83036 ==

== ENCOUNTER 2024-07-24 10:40 | Outpatient (REF) | payer BC, SELFPAY ==
--- OUTSIDE RECORDS SUMMARY | 2024-07-24 11:45 | XMS_ITS | Continuity of Care Document ---
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 [address], [id number] , [place]. tel:[phone] [facility], [address] [place] [address], [id number] , [place] tel: [phone] [facility] No Information 3 Rahul Valdez. [address] [place] [address], [address], [place]. tel: [phone] [facility], [address] [place] [address], [id number] , [place] tel: [phone] [facility] cough (chief complaint) Problem List (chief complaint) Acute upper respiratory infection, unspecifiedEssential (primary) hypertension 2 Rahul Valdez. [address] [place] [address], [address], [place]. tel: [phone] [facility], [address], [id number] , [place] tel: [phone] [facility] cold symptoms (chief complaint) COVID-19Essential (primary) hypertension Sep- 1 Ildefonso Mars. [address], [id number] , [place]. tel: [phone] Offic/outpt [facility], [address], [id number] , tel: [phone] [facility] R knee pain (chief complaint) Problem List (chief complaint) OverweightEssential (primary) hypertensionPain in right kneeArrhythmia 1 Diane Goldberg. [address] [place] [address], [id number] , [place]. tel: [phone] Family History Family Member Type Diagnosis Age [...] Of Treatment Date Type Action Status Goal Zoster vaccine. Due on due Goal CT-Colonography. Due on due Goal Zoster vaccine (). Due on due Goal FIT-DNA. Due on due Goal Hepatitis C screening. Due o n due Goal Hepatitis C Test ing Baby [place]. Due on due Goal Unhealthy drug u se screening. Due on due Goal Td vaccine. Due on due Goal DEXA Scan. Due on due Goal Sigmoidoscopy. Due on due Goal Colonoscopy. Due on 023 due Goal Influenza vaccine. Due on due Goal Prevnar 13. Due on due Goal Glaucoma Screening. Due on due Goal Cologuard. Due on due Goal FIT. Due on due Goal FOBT. Due on due Goal Pneumovax 23. Due on 2022 due Goal H&P. Due on due Goal PSA. Due on due Goal Sigmoidoscopy. Due on due Goal H&P. Due on due Goal Glaucoma Screening. Due on due Goal Colonoscopy. Due on 023 due Goal FIT. Due on due Goal Hepatitis C Test ing Baby [place]. Due on due Goal Hepatitis C screening. Due o n due Goal FOBT. Due on due Goal Unhealthy drug u se screening. Due on due Goal Zoster vaccine. Due on due Goal Cologuard. Due on due Goal Influenza vaccine. Due on due Goal FIT-DNA. Due on due Goal PSA. Due on due Goal CT-Colonography. Due on due Goal Prevnar 13. Due on due Goal DEXA Scan. Due on due Goal Zoster vaccine (). Due on due Goal Td vaccine. Due on due Goal Pneumovax 23. Due on 2022 due Goal Colonoscopy. Due on 022 due Goal H&P. Due on due Goal Zoster vaccine (1st). Due on due Goal PSA. Due on due Goal Hepatitis C Test ing Baby [place]. Due on due Goal Influenza vaccine. Due on due Goal FOBT. Due on due Goal Prevnar 13. Due on due Goal Cologuard. Due on due Goal Pneumovax 23. Due on 2021 due Goal Zoster vaccine. Due on due Goal DEXA Scan. Due on 2 due Goal Sigmoidoscopy. Due on due Goal Glaucoma Screening. Due on A due Goal Td vaccine. Due on due Goal Sigmoidoscopy. Due on due Goal PSA. Due on due Goal Pneumovax 23. Due on 2020 due Goal Glaucoma Screening. Due on S due Goal Td vaccine. Due on due Goal Zoster vaccine (). Due on due Goal Hepatitis C Test ing Baby [place]. Due on due Goal Influenza vaccine. Due on due Goal Zoster vaccine. Due on due Goal Prevnar 13. Due on due Goal Colonoscopy. Due on 021 due Goal DEXA Scan. Due on 1 due Goal H&P. Due on due Goal Cologuard. Due on due Goal FOBT. Due on [...] due Goal Hepatitis C Test ing Baby [place]. Due on due Goal H&P. Due on due Goal Td vaccine. Due on due Goal Pneumovax 23. Due on 2020 due Goal Prevnar 13. Due on due Goal PSA. Due on due Future Order: Lab Order CBC W/DI FF,W/PLT (3000), Scheduled for: , Scheduled for: Sent Future Order: Lab Order COMPREHE NSIVE METABOLIC PANEL ([id number]), Scheduled for: , Scheduled for: Sent Future Order: Lab Order LIPID PA MERCEDES ([id number]), Scheduled for: , Scheduled for: Sent Future Order: Lab Order TSH W RE FLEX TO FREE T4 ([id number]), Scheduled for: , Scheduled for: Sent History [...] cristinaPrevious PCP: me years ago moved to [place] was seeing a provider in [place] Dr. 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 Weight loss can usually occur [...]
[2024-07-24 13:58] LABS: MANUAL DIFF FLAG NO
[2024-07-24 14:04] LABS: Basophils Absolute Auto 0.1 X10*3/uL (0.0-0.2); Basophils Percent Auto 0.9 % (0-2); Eosinophils Absolute Auto 0.1 X10*3/uL (0.0-0.4); Hematocrit 45.6 % (42.0-52.0); Hemoglobin 15.8 g/dl (14.0-18.0); Imm Gran Abs Auto 0.03 X10*3/uL (0.00-0.03); Imm Gran Pct Auto 0.4 % (0.0-0.4); Lymphocytes Absolute Auto 1.5 X10*3/uL (1.2-4.9); Lymphocytes Percent Auto 21.5 % (20-40); Mean Corpuscular HGB Conc 34.6 g/dl (31.0-36.0); Mean Corpuscular Hemoglobin 29.5 pg (27.0-33.0); Mean Corpuscular Volume 85.1 fL (80.0-98.0); Mean Platelet Volume 10.3 fL (9.4-12.4); Monocytes Absolute Auto 0.7 X10*3/uL (0.1-1.2); Monocytes Percent Auto 10.8 % (2-11); Neutrophils Absolute Auto 4.4 x10*3/uL (2.0-8.3); Neutrophils Percent Auto 64.4 % (45-73); Platelet Count 251 X10*3/uL (160-400); Red Blood Count 5.36 X10*6/uL (4.60-5.80); Red Cell Distribution Width 13.2 % (11.0-16.0); White Blood Count 6.8 X10*3/uL (4.8-10.8)
[2024-07-24 14:10] LABS: Appearance Urine Clear; Color Urine Yellow; Glucose Urine UA 500 mg/dL (Negative); Leukocyte Esterase Urine Negative (Negative); Nitrite Urine Negative (Negative); PH 6.5 (5.0-9.0); Specific Gravity - Urine 1.015 (1.005-1.025); Urine Blood Negative (Negative); Urine Ketones Negative (Negative); Urine Protein Negative (Neg-Trace)
[2024-07-24 14:25] LABS: Alanine Aminotransferase 37 U/L (0-40); Albumin Level 4.5 g/dL (3.5-5.0); Alkaline Phosphatase 65 U/L (39-117); Anion Gap 12 (12-20); Aspartate Amino Transferase 27 U/L (5-37); Bilirubin Total 0.7 mg/dL (0.0-1.0); Blood Urea Nitrogen 12 mg/dL (9-16); Calcium 9.7 mg/dL (8.4-10.2); Carbon Dioxide 29 mmol/L (22-29); Chloride 99 mmol/L (96-108); Cholesterol 251 mg/dL (<200); Estimated Glomerular Filt Rate > 60; Glucose Fasting 235 mg/dL (60-99); HDL Cholesterol 52 mg/dL (>40); LDL Cholesterol Calculated 176 mg/dL (<100); Potassium 3.8 mmol/L (3.3-5.1); Sodium 136 mmol/L (135-145); Total Protein 8.2 g/dL (6.5-8.0); Triglycerides 118 mg/dL (<150)
[2024-07-24 14:33] LABS: Microalbum/Creatinine Ratio Ur 31.3 ug/mg cr (<30)
[2024-07-24 14:44] LABS: TSH reflex Free T4 1.89 uIU/mL (0.32-4.0); Vitamin D 25-OH Total 73.2 ng/mL (>30)
[2024-07-24 14:51] LABS: Folate 11.5 ng/mL (> or = 4.0); Prostate Specific Antigen Scr 3.75 ng/mL (<0.05-4.0); Vitamin B12 276 pg/mL (200-900)
[2024-07-31 11:48] LABS: Testosterone, Free 55.1 pg/mL (30.0-135.0); Testosterone, Total 375 ng/dL (250-1100)
== END 2024-07-24 10:41 | disposition home or self-care (01) ==
LOC: HO.WFDLDS 10:40
PROVIDERS: Visit Provider Family Medicine
DX: Z00.00 Encounter for general adult medical examination without abnormal findings (principal); I10 Essential (primary) hypertension; Z12.5 Encounter for screening for malignant neoplasm of prostate; N52.9 Male erectile dysfunction, unspecified; E53.8 Deficiency of other specified B group vitamins; E55.9 Vitamin D deficiency, unspecified
CPT/HCPCS: 36415; 80053; 80061; 81003; 82043; 82306; 82570; 82607; 82746; 84153; 84402; 84403; 84443; 85025

== ENCOUNTER 2024-08-09 09:37 | Outpatient (REF) | payer BC, SELFPAY ==
[2024-08-09 14:19] LABS: Appearance Urine Clear; Color Urine Yellow; Glucose Urine UA >=1000 mg/dL (Negative); Leukocyte Esterase Urine Negative (Negative); Nitrite Urine Negative (Negative); Specific Gravity - Urine 1.015 (1.005-1.025); UMIC TRIGGER UA YES; Urine Blood Negative (Negative); Urine Ketones Negative (Negative); Urine Protein Negative (Neg-Trace)
[2024-08-09 14:25] LABS: Bacteria Urine None Seen (None Seen); Hyaline Casts Urine 0-2 /LPF (0-2); RBC Urine 0-2 /HPF (0-2); Squamous Epithelial Cell Urine 0-2 /HPF (0-2); WBC Urine 0-5 /HPF (0-5)
--- OUTSIDE RECORDS SUMMARY | 2024-08-09 14:30 | XMS_ITS | Continuity of Care Document ---
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 [address], [id number] , [place]. tel:[phone] [facility], [address] [place] [address], [id number] , [place] tel: [phone] [facility] No Information 3 Rahul Valdez. [address] [place] [address], [address], [place]. tel: [phone] [facility] [address] [place] [address], [id number] , [place] tel: [phone] [facility] cough (chief complaint) Problem List (chief complaint) Acute upper respiratory infection, unspecifiedEssential (primary) hypertension 2 Rahul Valdez. [address] [place] [address], [id number], [place]. tel: [phone] [facility], [address], [id number] , [place] tel: [phone] [facility] cold symptoms (chief complaint) COVID-19Essential (primary) hypertension Sep- 1 Ildefonso Mars. [address], [id number] , [place]. tel: [phone] Offic/outpt E&m [facility], [address], [id number] , tel: [phone] [facility] R knee pain (chief complaint) Problem List (chief complaint) OverweightEssential (primary) hypertensionPain in right kneeArrhythmia 1 Diane Goldberg. [address] [place] [address], [id number] , [place]. tel: [phone] Family History Family Member Type Diagnosis Age At Onset Mother Problem (finding) hypercholesterolemia Mother Problem (finding) hypertension Payers Payer name Insurance type Covered republican ID Authoriza tion(s) No Information Social History Type Description Quantity Date Captured Comments Alcohol Use Details Unknown Caffeine Use Details Unknown Tobacco Use Status No Information Smoking Status No Information Sex Male Chief Complaint And Reason For Visit No Information Reason For Referral Reason For Referral No Information Plan Of Treatment Date Type Action Status Goal Hepatitis C Test ing [place]. Due on due Goal H&P. Due on [...] Goal Zoster vaccine. Due on due Goal Pneumovax 23. Due on 2022 due Goal Prevnar 13. Due on due Goal Glaucoma Screening. Due on due Goal Td vaccine. Due on due Goal Glaucoma Screening. Due on due Goal Sigmoidoscopy. Due on due Goal Colonoscopy. Due on 023 due Goal H&P. Due on due Goal Zoster vaccine (). Due on due Goal PSA. Due on due Goal Hepatitis C Test ing [place]. Due on due Goal Influenza vaccine. Due [...] u se screening. Due on due Goal Sigmoidoscopy. Due on due Goal PSA. Due on due Goal Pneumovax 23. Due on 2021 due Goal Glaucoma Screening. Due on A due Goal Td vaccine. Due on due Goal Zoster vaccine (). Due on due Goal Hepatitis C Test ing [place]. Due on due Goal Influenza vaccine. Due on Ap due Goal Zoster vaccine. Due on due Goal Prevnar 13. Due on due Goal Colonoscopy. Due on 022 due Goal DEXA Scan. Due on 2 due Goal H&P. Due on due Goal Cologuard. Due on due Goal FOBT. Due on due Goal PSA. Due on due Goal Prevnar 13. Due on due Goal Pneumovax 23. Due on 2020 due Goal Td vaccine. Due on due Goal H&P. Due on due Goal Hepatitis C Test ing [place]. Due on due Goal Sigmoidoscopy. Due on due Goal Zoster vaccine. Due on due Goal Zoster vaccine (). Due on due Goal Glaucoma Screening. Due on S due Goal Cologuard. Due on due Goal DEXA Scan. Due on due Goal Colonoscopy. Due on 021 due Goal FOBT. Due on due Goal Influenza vaccine. Due on due Goal Influenza vaccine. Due on due Goal FOBT. Due on due Goal DEXA Scan. Due on due Goal Cologuard. Due on due Goal Glaucoma Screening. Due on due Goal Zoster vaccine (). Due on due Goal Zoster vaccine. Due on due Goal Sigmoidoscopy. Due on due Goal Hepatitis C Test ing [place]. Due on due Goal H&P. Due on due Goal Td vaccine. Due on due Goal Pneumovax 23. Due on 2020 due Goal Prevnar 13. Due on due Goal PSA. Due on due Goal Colonoscopy. Due on 021 due Future Order: Lab Order CBC W/DI FF,W/PLT (3000), Scheduled for: , Scheduled for: Sent Future Order: Lab Order COMPREHE NSIVE METABOLIC PANEL ([id number]), Scheduled for: , Scheduled for: Sent Future Order: Lab Order LIPID PA MERCEDES ([id number]), Scheduled for: , Scheduled for: Sent Future Order: Lab Order TSH W RE FLEX TO FREE T4 ([id number]), Scheduled for: , Scheduled for: Sent History [...] cristinaPrevious PCP: me years ago moved to [place] was seeing a provider in [place] Dr. 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 EKG sinus arrhythmia P-67 intraatrial conduction delay Left axis deviation no acute ST- T changes no prior EKG to compare to Last colonoscopy: within past 5 years R knee pain Functional Status Date Functional Assessmen t No Information Instructions Date Instruction Additional Infor jaime Anti-cough prescript ions ordered.You can take vwsv-[id number] guaifenesin also known as Mucinex to help with mucus relief.You can take [id number] fluticasone nasal spray (Flonase) to help with [...] Related to Acute upper respiratory infection, unspecified Refills for medications were deirdre khari Related to Essential (primary) hypertension Recommend 81 mg A spirin daily. Pepcid 20-40 mg daily. For any severe symptoms such as SOB especially with exertion go to the ER. We discussed the SARS -Cov-2 Specific Monoclonal antibody treatment adn fact sheet with you and you agreed to do this treatment on 03/10/21. Related to COVID-19 As above. 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 Weight loss can usually occur [...]
== END 2024-08-09 09:38 | disposition home or self-care (01) ==
LOC: HO.LNP 09:37
PROVIDERS: PCP Family Medicine; Visit Provider Family Medicine
DX: E11.9 Type 2 diabetes mellitus without complications (principal)
CPT/HCPCS: 81001; 83036

== ENCOUNTER 2024-08-09 09:37 | Outpatient (AMB) | payer BC, SELFPAY ==
--- NOTE | 2024-08-09 09:44 | MHC.PC.OV ---
Vital Signs 08/09/24 09:55 Height 5 ft 11 in Weight 210 lb BMI 29.3 BP 140/60 H Blood Pressure Location Lt brachial Position Sitting Respiration 14 Pulse 60 Pulse Source Pulse Oximeter Temp 97.7 F Temp Source Oral Pulse Oximetry (%) 96 Oxygen Delivery Method Room Air Intake Visit Reasons: f/u diabetes Intake Note: follow up dm Dough Puncher Required: No Allergies No Known Allergies Allergy (Verified 08/09/24 09:44) Medication List - Last Reconciled 08/09/24 by Chaitanya Gleason MD amlodipine 10 mg PO DAILY 90 days cholecalciferol (vitamin D3) (Vitamin D3) 150 mcg PO DAILY clotrimazole 1% (Antifungal (clotrimazole)) 1 appl topical BID 2 weeks [Fish Oil PO DAILY] hydrocortisone 1% (Cortisone (hydrocortisone)) 1 appl topical BID PRN 5 days losartan-hydrochlorothiazide 100-25 mg 1 tab PO DAILY 90 days metformin 1,000 mg (2 x 500 mg) PO DAILY 30 days metoprolol succinate ER 50 mg PO DAILY 90 days naproxen (Naprosyn) 500 mg PO Q12H PRN sildenafil 50 mg PO DAILY PRN 30 days tirzepatide (Mounjaro) 2.5 mg (0.5 mL) subcut QWEEK 28 days Tobacco use date assessed: 06/02/23 Dental Screening Dental Screen Date: 04/14/23 HPI f/u diabetes HPI Details 69 y/o male presents to f/u diabetes. Last A1c 07/05/24 10.4%. He had not started any medications for diabetes. A1c today unchanged at 10.4%. He notes he had started metformin 1000mg daily two weeks ago. He has not started his Mounjaro yet. He states he would like to trial metformin more before starting Mounjaro. Blood pressure today 140/60, 60p. He is on amlodipine 10mg, losartan-HCTZ 100-25.mg, metoprolol 50mg daily. He reports blood pressure today is due to stressors. Has some complaints of ?urinary retention. HPI Comments History of Present Illness Details Documentation assistance for Chaitanya Gleason MD, was provided by Allen rFanco,? Gas Station Operator on 08/09/2024 at 10:08 AM EST. I, Dr. Gleason, have read, observed, and verified documentation. [facility] Medical History Diabetes Finger fracture, right Acute eczema High cholesterol High blood pressure Surgical History History of arthroscopic surgery of shoulder Hx of hand surgery (05/26/23) History of right cataract surgery Family History Mother Heart attack Social History Household Members: Spouse Housing: House Are you a primary assurance services manager health care to a significant other at home: No Do you presently have visiting nurse or other home services: No 75 years or older and lives alone: No Alcohol intake: current Patient Tobacco Use Status: Never used Tobacco e-Cigarette/Vaping Use: Never Used service: No Current occupational status: retired 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 Hoang Ndiaye, Anita Pryor, Napoleon Cespedes and colleagues, with an educational chuck from [employer]. Physical exam (Primary Care) Vital Signs: Last Vital Signs Temp 97.7 F 08/09/24 09:55 Pulse 60 08/09/24 09:55 Resp 14 08/09/24 09:55 BP 140/60 H 08/09/24 09:55 Pulse Ox 96 08/09/24 09:55 Oxygen Delivery Method Room Air 08/09/24 09:55 BMI result Body Mass Index 29.3 Tobacco/Smoking Status: Tobacco use Status Tobacco use date assessed 06/02/23 08/09/24 09:55 Patient Tobacco Use Status Never used Tobacco 08/09/24 09:55 e-Cigarette/Vaping Use Never Used 08/09/24 09:55 Thrive Assessment: Date of Thrive Assessment Date Thrive assessed 07/05/24 08/09/24 09:55 Results AMB Hemoglobin A1c AMB Hemoglobin A1c 10.4 % Last Edit by Lilli Dinh CMA on 08/09/24 10:01 Results Reviewed Results Reviewed: Laboratory Last Values Hgb A1c (Clinic) 10.4 % (4.0-6.0) H 08/09/24 09:58 Coding Level of Care Code Est Pt Level 4 (53759) Diagnoses Diabetes E11.9 Urinary retention R33.9 Primary hypertension I10 Hypertension type: primary hypertension Erectile dysfunction N52.9 Assessment & Plan Assessment & Plan (1) Diabetes: Code(s): E11.9 - Type 2 diabetes mellitus without complications Category: Medical Plan: A1c?still?10.4%?but?patient?only?begin?the?medication?2?weeks?ago.??Goal?is?less?than?7.0% Encouraged?him?to?continue?the?medication.??He?has?found?that?it?has?not?caused?any?adverse?effects. He?plans?to?increase?metformin?from?500?mg?daily?to?500?mg?b.i.d. He?was?also?prescribed?Mounjaro?in?says? I?have?not?started?this?yet but?he?seems potentially?intend?to?do?so.??Will?keep?on?med?list?for?now. Encouraged?diabetic?diet (2) Urinary retention: Code(s): R33.9 - Retention of urine, unspecified Category: Medical Plan: Possibly?some?mild?urinary?retention Trial?[place] Reviewed?PSA?which?is?at?the?upper?limits?of?normal?but?also?quite?steady. Will?consider?a?referral?to?urology?he?is?still?difficulties (3) High blood pressure: Code(s): I10 - Essential (primary) hypertension Category: Medical Qualifiers: Hypertension type: primary hypertension Qualified Code(s): I10 - Essential (primary) hypertension Plan: Blood?pressure?a?little?above?goal?of?less?than?140/90 Continue?current?medication Please?bring?in?a?log?of?your?blood?pressures?at?home If?still?running?a?little?high,?we?will?adjust?his?medication?at?his?next?visit (4) Erectile dysfunction: Code(s): N52.9 - Male erectile dysfunction, unspecified Category: Medical Plan: Refilled?sildenafil Orders: Orders AMB Hemoglobin A1c Today E11.9 - Type 2 diabetes mellitus without complications Medications: New tamsulosin 0.4 mg PO BEDTIME 90 days 90 caps 2RF Refilled sildenafil administer 30 minutes to 4 hours before activity 50 mg PO DAILY 30 days PRN 30 tabs 4RF Erectile Dysfunction
[2024-08-09 09:55] VITALS: BP 140/60; PULSE 60; RESP 14; TEMP 36.5; O2SAT 96; BMI 29.3
== END 2024-08-09 10:43 | disposition home or self-care (01) ==
PROVIDERS: PCP Family Medicine; Visit Provider Family Medicine
DX: E11.9 Type 2 diabetes mellitus without complications (principal); R33.9 Retention of urine, unspecified; I10 Essential (primary) hypertension; N52.9 Male erectile dysfunction, unspecified

== ENCOUNTER 2024-10-17 10:15 | Outpatient (AMB) | payer BC, SELFPAY ==
--- NOTE | 2024-10-17 10:22 | MHC.PC.OV ---
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 Allergies No Known Allergies Allergy (Verified 10/17/24 10:28) Medication List - Last Reconciled 10/17/24 by Chaitanya Gleason MD amlodipine 10 mg PO DAILY 90 days cholecalciferol (vitamin D3) (Vitamin D3) 150 mcg PO DAILY clotrimazole 1% (Antifungal (clotrimazole)) 1 appl topical BID 2 weeks [Fish Oil PO DAILY] hydrocortisone 1% (Cortisone (hydrocortisone)) 1 appl topical BID PRN 5 days losartan-hydrochlorothiazide 100-25 mg 1 tab PO DAILY 90 days metformin 1,000 mg (2 x 500 mg) PO DAILY 30 days metoprolol succinate ER 50 mg PO DAILY 90 days naproxen (Naprosyn) 500 mg PO Q12H PRN sildenafil 50 mg PO DAILY PRN 30 days tamsulosin 0.4 mg PO BEDTIME 90 days tirzepatide (Mounjaro) 2.5 mg (0.5 mL) subcut QWEEK 28 days Tobacco use date assessed: 06/02/23 Dental Screening Dental Screen Date: 04/14/23 HPI f/u diabetes HPI Details 69 y/o male presents to f/u diabetes, HTN, chronic conditions. Last A1c 08/09/24 10.4%. He had planned to increase metformin from 500mg daily to 500mg b.i.d. Insurance had declined mounjaro. He reports nasal congestion/drainage. [facility] Medical History Diabetes Finger fracture, right Acute eczema High cholesterol High blood pressure Surgical History History of arthroscopic surgery of shoulder Hx of hand surgery (05/26/23) History of right cataract surgery Family History Mother Heart attack Social History Household Members: Spouse Housing: House Are you a primary memory care program director to a significant other at home: No Do you presently have visiting nurse or other home services: No 75 years or older and lives alone: No Alcohol intake: current Patient Tobacco Use Status: Never used Tobacco e-Cigarette/Vaping Use: Never Used service: No Current occupational status: retired 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 1. Little interest or pleasure in doing things: not at all 2. Feeling down, depressed, or hopeless: not at all 3. Trouble falling or staying asleep, or sleeping too much: not at all 4. Feeling tired or having little energy: not at all 5. Poor appetite or overeating: not at all 6. Feeling bad about yourself - or that you are a failure or have let yourself or your family down: not at all 7. Trouble concentrating on things, such as reading the newspaper or watching television: not at all 8. Moving or speaking so slowly that other people could have noticed. Or the opposite - being so fidgety or restless that you have been moving around a lot more than usual: not at all 9. Thoughts that you would be better off or of hurting yourself in some way: not at all Total score: 0 Depression Screening Interpretation: Negative Depression Screening Done: Yes 50276 - PHQ-9 Billing: Yes Source: Developed by Drs. Hoang Ndiaye, Anita Pryor, Napoleon Cespedes and colleagues, with an educational chuck from [employer]. Thrive Questionnaire Date Thrive assessed: 10/17/24 I am a: Patient What is your living situation today?: I have a steady place to live Please select the resources that you would like help with: None Currently or been in a relationship where the following occur: I choose not to answer THRIVE Score: 0 MARTI-7 AMB Questionnaire MARTI-7 Date MARTI - 7 assessed: 10/17/24 Feeling nervous, anxious, or on edge: 0 = Not at all Not being able to stop or control worryin = Not at all Worrying too much about different things: 0 = Not at all Trouble relaxin = Not at all Being so restless that it is hard to sit still: 0 = Not at all Becoming easily annoyed or irritable: 0 = Not at all Feeling afraid as if something awful might happen: 0 = Not at all Total MARTI-7 score (0-4 normal; 5-9 mild; 10-14 moderate; 15-21 severe): 0 Source: Developed by Drs. Hoang Ndiaye, Anita Pryor, Napoleon Cespedes and colleagues, with an educational chuck from [employer]. MARTI-7 Assessment Billing MARTI-7 Assessment Tool: MARTI-7 Assessment 97417 Review of Systems Const Denies chills, Denies fatigue, Denies fever(s), Denies headache(s) and Denies weakness ENT Denies dizziness and Denies headache(s) Card Denies dyspnea Resp Denies cough, Denies dyspnea, Denies wheezing and Denies other (shortness of breath) Musc Denies numbness and Denies tingling Neuro Denies dizziness, Denies headache(s), Denies numbness, Denies tingling and Denies weakness Psych Denies anxiety and Denies depression Endo Denies fatigue Aller/Immun Denies wheezing Physical exam (Primary Care) Vital Signs: Last Vital Signs Temp 97.3 F 10/17/24 10:31 Pulse 58 10/17/24 10:31 Resp 16 10/17/24 10:31 BP 138/70 10/17/24 10:31 Pulse Ox 97 10/17/24 10:31 Oxygen Delivery Method Room Air 10/17/24 10:31 BMI result Body Mass Index 29.9 Tobacco/Smoking Status: Tobacco use Status Tobacco use date assessed 06/02/23 10/17/24 10:22 Patient Tobacco Use Status Never used Tobacco 10/17/24 10:22 e-Cigarette/Vaping Use Never Used 10/17/24 10:22 PHQ-9: PHQ-9 Score PHQ-9: Total score 0 10/17/24 10:42 Depression Screening Interpretation: Negative Thrive Assessment: Date of Thrive Assessment Date Thrive assessed 10/17/24 10/17/24 10:28 Currently or been in a relationship where the following occur: I choose not to answer Const General: well developed; No acute distress Nutritional Appearance: well nourished Orientation/consciousness: patient oriented x3 HENMT Head: Yes normocephalic and Yes atraumatic Eyes General: appearance normal, both eyes and all related structures Pupils: Equal, round and reactive pupils present EOM: EOMs intact bilaterally Resp Effort & Inspection: normal respiratory effort Neuro General: patient oriented x3 and gait normal Cranial nerves: Yes Equal, round and reactive pupils present Psych Affect: normal affect Coding Level of Care Code Est Pt Level 4 (98018) Diagnoses Diabetes E11.9 Rhinitis J31.0 Primary hypertension I10 Hypertension type: primary hypertension Erectile dysfunction N52.9 Additional Codes MARTI-7 Assessment Billing - MARTI-7 Assessment Tool: MARTI-7 Assessment 40035 ([id number]) PHQ-9 - 76908 - PHQ-9 Billing: Yes ([id number]) Assessment & Plan Assessment & Plan (1) Diabetes: Code(s): E11.9 - Type 2 diabetes mellitus without complications Category: Medical Plan: Essentially?uncontrolled?diabetes He?is?taking?metformin?500?mg?once?per?day?rather?than?twice?a?day?most?days.??He?often?forgets?his?medications. For?this?reason?we?were?trying?to?get?him a?DLP?1?medication?that?he?would?only?need?to?remember?once?per?week?along?with?his?morning?metformin?dose. Will?have?him?increase?metformin?to?1000?mg?b.i.d. and?will?add?5?mg?of?glipizide?q.a.m.?which?he?can?discontinue?if?he?is?able?to?get?a?GLP?1?medication. Will?trial?sending?Ozempic.??I?advised?him?to?call?his?insurance?to?see?what?they?will?cover?and?if?he?would?still?need?prior?authorization?regardless?of?the?diagnosis of?diabetes. (2) Rhinitis: Code(s): J31.0 - Chronic rhinitis Category: Medical Plan: Likely?secondary?to?allergy Can?use?nasal?saline Will?send?script?for?cetirizine (3) High blood pressure: Code(s): I10 - Essential (primary) hypertension Category: Medical Qualifiers: Hypertension type: primary hypertension Qualified Code(s): I10 - Essential (primary) hypertension Plan: Blood?pressure?is?controlled?today.??Goal?is?less?than?140/90 Continue?current?medication (4) Erectile dysfunction: Code(s): N52.9 - Male erectile dysfunction, unspecified Category: Medical Plan: Sildenafil?is?helping Resent?script Medications: New blood pressure monitor Automatic, Digital. Dx: I10. Daily As directed, 999 days/lifetime 1 ea 0RF I10 - Essential (primary) hypertension semaglutide (Ozempic) for 4 weeks 0.25 mg (0.368 mL) subcut QWEEK 28 days 1.472 mL 2RF E11.49 - Type 2 diabetes mellitus with other diabetic neurological complication, E11.65 - Type 2 diabetes mellitus with hyperglycemia glipizide 5 mg PO QAM 90 days 90 tabs 2RF Changed From metformin 1,000 mg (2 x 500 mg) PO DAILY 30 days 60 tabs 2RF To metformin 1,000 mg PO BID 30 days 60 tabs 2RF Refilled sildenafil administer 30 minutes to 4 hours before activity 50 mg PO DAILY 30 days PRN 30 tabs 4RF Erectile Dysfunction Discontinued tirzepatide (Mounjaro) for 4 weeks Discontinued Reason: Doctor's Order 2.5 mg (0.5 mL) subcut QWEEK 28 days 2 mL 3RF
--- NOTE | 2024-10-17 10:28 | MHC.PC.OV ---
Vital Signs 10/17/24 10:31 Height 5 ft 11 in Weight 214 lb 4 oz BMI 29.9 BP 138/70 Blood Pressure Location Lt brachial Position Sitting Respiration 16 Pulse 58 Pulse Source Pulse Oximeter Temp 97.3 F Temp Source Oral Pulse Oximetry (%) 97 Oxygen Delivery Method Room Air Intake Visit Reasons: f/u diabetes Allergies No Known Allergies Allergy (Verified 10/17/24 10:28) Tobacco use date assessed: 06/02/23 Dental Screening Dental Screen Date: 04/14/23 [facility]LY [facility], [facility] Medical History Diabetes Finger fracture, right Acute eczema High cholesterol High blood pressure Surgical History History of arthroscopic surgery of shoulder Hx of hand surgery (05/26/23) History of right cataract surgery Family History Mother Heart attack Social History Household Members: Spouse Housing: House Are you a primary customer care consultant to a significant other at home: No Do you presently have visiting nurse or other home services: No 75 years or older and lives alone: No Alcohol intake: current Patient Tobacco Use Status: Never used Tobacco e-Cigarette/Vaping Use: Never Used service: No Current occupational status: retired 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 1. Little interest or pleasure in doing things: not at all 2. Feeling down, depressed, or hopeless: not at all 3. Trouble falling or staying asleep, or sleeping too much: not at all 4. Feeling tired or having little energy: not at all 5. Poor appetite or overeating: not at all 6. Feeling bad about yourself - or that you are a failure or have let yourself or your family down: not at all 7. Trouble concentrating on things, such as reading the newspaper or watching television: not at all 8. Moving or speaking so slowly that other people could have noticed. Or the opposite - being so fidgety or restless that you have been moving around a lot more than usual: not at all 9. Thoughts that you would be better off or of hurting yourself in some way: not at all Total score: 0 Depression Screening Interpretation: Negative Depression Screening Done: Yes 19116 - PHQ-9 Billing: Yes Source: Developed by Drs. Hoang Ndiaye, Anita Pryor, Napoleon Cespedes and colleagues, with an educational chuck from [employer]. Thrive Questionnaire Date Thrive assessed: 10/17/24 I am a: Patient What is your living situation today?: I have a steady place to live Please select the resources that you would like help with: None Currently or been in a relationship where the following occur: I choose not to answer THRIVE Score: 0 MARTI-7 AMB Questionnaire MARTI-7 Date MARTI - 7 assessed: 10/17/24 Feeling nervous, anxious, or on edge: 0 = Not at all Not being able to stop or control worryin = Not at all Worrying too much about different things: 0 = Not at all Trouble relaxin = Not at all Being so restless that it is hard to sit still: 0 = Not at all Becoming easily annoyed or irritable: 0 = Not at all Feeling afraid as if something awful might happen: 0 = Not at all Total MARTI-7 score (0-4 normal; 5-9 mild; 10-14 moderate; 15-21 severe): 0 Source: Developed by Drs. Hoang Ndiaye, Anita Pryor, Napoleon Cespedes and colleagues, with an educational chuck from [employer]. Physical exam (Primary Care) Tobacco/Smoking Status: Tobacco use Status Tobacco use date assessed 06/02/23 10/17/24 10:22 Patient Tobacco Use Status Never used Tobacco 10/17/24 10:22 e-Cigarette/Vaping Use Never Used 10/17/24 10:22 PHQ-9: PHQ-9 Score PHQ-9: Total score 0 10/17/24 10:28 Depression Screening Interpretation: Negative Thrive Assessment: Date of Thrive Assessment Date Thrive assessed 10/17/24 10/17/24 10:28 Currently or been in a relationship where the following occur: I choose not to answer Coding Additional Codes PHQ-9 - 72421 - PHQ-9 Billing: Yes ([id number])
[2024-10-17 10:31] VITALS: BP 138/70; PULSE 58; RESP 16; TEMP 36.3; O2SAT 97; BMI 29.9
--- OUTSIDE RECORDS SUMMARY | 2024-10-17 11:39 | XMS_ITS | Continuity of Care Document ---
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 [address], [id number] , [place]. tel:[phone] [facility], [address] [place] [address], [id number] , [place] tel: [phone] [facility] No Information 3 Rahul Valdez. [address] [place] [address], [id number], [place]. tel: [phone] [facility], [address] [place] [address], [id number] , [place] tel: [phone] [facility] cough (chief complaint) Problem List (chief complaint) Acute upper respiratory infection, unspecifiedEssential (primary) hypertension 2 Rahul Valdez. [address] [place] [address], [address], [place]. tel: [phone] [facility], [address], [id number] , [place] tel: [phone] [facility] cold symptoms (chief complaint) COVID-19Essential (primary) hypertension Sep- 1 Ildefonso Mars. [address], [id number] , [place]. tel: [phone] Offic/outpt E&m [facility], [address], [id number] , tel: [phone] [facility] R knee pain (chief complaint) Problem List (chief complaint) OverweightEssential (primary) hypertensionPain in right kneeArrhythmia 1 Diane Goldberg. [id number] [place] [address], [id number] , [place]. tel: [phone] Family History Family Member Type Diagnosis Age At Onset Mother Problem (finding) hypercholesterolemia Mother Problem (finding) hypertension Payers Payer name Insurance type Covered libertarian ID Authoriza tion(s) No Information Social History Type Description Quantity Date Captured Comments Alcohol Use Details Unknown Caffeine Use Details Unknown Tobacco Use Status No Information Smoking Status No Information Sex Male Chief Complaint And Reason For Visit No Information Reason For Referral Reason For Referral No Information Plan Of Treatment Date Type Action Status Goal PSA. Due on due Goal Unhealthy drug u se screening. Due on due Goal Cologuard. Due on due Goal FIT-DNA. Due on due Goal FOBT. Due on due Goal FIT. Due on due Goal CT-Colonography. Due on due Goal Sigmoidoscopy. Due on due Goal DEXA Scan. Due on due Goal Zoster vaccine. Due on due Goal Hepatitis C Test ing Baby Cory. Due on due Goal H&P. Due on due Goal Influenza vaccine. Due on due Goal Zoster vaccine (). Due on due Goal Colonoscopy. Due on 023 due Goal Td vaccine. Due on due Goal Hepatitis C screening. Due o n due Goal Glaucoma Screening. Due on due Goal Prevnar 13. Due on due Goal Pneumovax 23. Due on 2022 due Goal Zoster vaccine (). Due on due Goal PSA. Due on due Goal Hepatitis C Test ing Baby Cory. Due on due Goal Influenza vaccine. Due [...] u se screening. Due on due Goal H&P. Due on due Goal Colonoscopy. Due on 023 due Goal Sigmoidoscopy. Due on due Goal Glaucoma Screening. Due on M due Goal Td vaccine. Due on due Goal Sigmoidoscopy. Due on due Goal PSA. Due on due Goal Pneumovax 23. Due on 2021 due Goal Glaucoma Screening. Due on A due Goal Td vaccine. Due on due Goal Zoster vaccine (1st). Due on due Goal Hepatitis C Test ing Baby Cory. Due on due Goal Influenza vaccine. Due on Ap r-06-2022 due Goal Zoster vaccine. Due on due Goal Prevnar 13. Due on due Goal Colonoscopy. Due on 022 due Goal DEXA Scan. Due on 2 due Goal H&P. Due on due Goal Cologuard. Due on 2 due Goal FOBT. Due on due Goal Zoster vaccine (). Due on due Goal Glaucoma Screening. Due on S due Goal Cologuard. Due on due Goal DEXA Scan. Due on due Goal Colonoscopy. Due on due Goal FOBT. Due on due Goal Influenza vaccine. Due on due Goal Zoster vaccine. Due on due Goal PSA. Due on due Goal Prevnar 13. Due on due Goal Pneumovax 23. Due on 2020 due Goal Td vaccine. Due on due Goal H&P. Due on due Goal Hepatitis C Test ing Baby Cory. Due on due Goal Sigmoidoscopy. Due on due Goal Colonoscopy. Due on due Goal Td vaccine. Due on due Goal Pneumovax 23. Due on 2020 due Goal Prevnar 13. Due on due Goal PSA. Due on due Goal Influenza vaccine. Due on due Goal FOBT. Due on due Goal DEXA Scan. Due on due Goal Cologuard. Due on due Goal Glaucoma Screening. Due on due Goal Zoster vaccine (). Due on due Goal Zoster vaccine. Due on due Goal Sigmoidoscopy. Due on due Goal Hepatitis C Test ing Baby Cory. Due on due Goal H&P. Due on due Future Order: Lab Order CBC W/DI FF,W/PLT (3000), Scheduled for: , Scheduled for: Sent Future Order: Lab Order COMPREHE NSIVE METABOLIC PANEL ([id number]), Scheduled for: , Scheduled for: Sent Future Order: Lab Order LIPID PA MERCEDES ([id number]), Scheduled for: , Scheduled for: Sent Future Order: Lab Order TSH W RE FLEX TO FREE T4 ([id number]), Scheduled for: , Scheduled for: Sent History [...] cristinaPrevious PCP: me years ago moved to [place] was seeing a provider in [place] Dr. 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[place] by accounts payable analyst EKG sinus arrhythmia P-67 intraatrial conduction delay Left axis deviation no acute ST- T changes no prior EKG to compare to Last colonoscopy: within past 5 years R knee pain Functional Status Date Functional Assessmen t No Information Instructions Date Instruction Additional Infor jaime Anti-cough prescript ions ordered.You can take rqyr-ujz-duaetpr guaifenesin also known as Mucinex to help with mucus relief.You can take bezr-lem-vamywtq fluticasone nasal spray (Flonase) to help with [...] to Essen tial (primary) hypertension 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 Weight loss can usually occur [...]
== END 2024-10-17 11:22 | disposition home or self-care (01) ==
LOC: HO.HMCFM 10:17
PROVIDERS: PCP Family Medicine; Visit Provider Family Medicine
DX: E11.9 Type 2 diabetes mellitus without complications (principal); J31.0 Chronic rhinitis; I10 Essential (primary) hypertension; N52.9 Male erectile dysfunction, unspecified

== ENCOUNTER → 2024-10-17 10:15 | Outpatient (BNVA) | payer BC, SELFPAY | PROVIDERS: PCP Family Medicine; Visit Provider Family Medicine | DX: E11.9 Type 2 diabetes mellitus without complications (principal); J31.0 Chronic rhinitis; I10 Essential (primary) hypertension; N52.9 Male erectile dysfunction, unspecified; Z79.84 Long term (current) use of oral hypoglycemic drugs | CPT/HCPCS: 83036; 96127 ==

== ENCOUNTER 2024-11-21 13:29 | Outpatient (AMB) | payer BC, SELFPAY ==
--- NOTE | 2024-11-21 13:37 | A.OFFPC_ITS ---
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 Dx: I10. Daily As directed, 999 days/lifetime cholecalciferol (vitamin D3) (Vitamin D3) 150 mcg PO DAILY clotrimazole 1% (Antifungal (clotrimazole)) 1 appl topical BID 2 weeks [Fish Oil PO DAILY] glipizide 5 mg PO QAM 90 days hydrocortisone 1% (Cortisone (hydrocortisone)) 1 appl topical BID PRN 5 days losartan-hydrochlorothiazide 100-25 mg 1 tab PO DAILY 90 days metformin 1,000 mg PO BID 30 days metoprolol succinate ER 50 mg PO DAILY 90 days naproxen (Naprosyn) 500 mg PO Q12H PRN sildenafil 50 mg PO DAILY PRN 30 days tamsulosin 0.4 mg PO BEDTIME 90 days tirzepatide (Mounjaro) 2.5 mg (0.5 mL) subcut QWEEK 28 days Tobacco use date assessed: 06/02/23 Dental Screening Dental Screen Date: 04/14/23 HPI f/u diabetes, HTN HPI Details 69 y/o male presents to f/u diabetes, HT N. Prior A1c 10.4%. A1c today 10.6%. Had him increase metformin to 1000mg b.i.d. and added glipizide 5mg q.a.m. He notes he has only been taking metformin 1000mg in the morning and nothing else. Blood pressure today 130/60, 60p. He is on losartan-HCTZ 100-25mg, amlodipine 10mg daily, metoprolol 50mg daily. Pt has ongoing concerns about urinary retention. [facility] Medical History Diabetes Finger fracture, right Acute eczema High cholesterol High blood pressure Surgical History History of arthroscopic surgery of shoulder Hx of hand surgery (05/26/23) History of right cataract surgery Family History Mother Heart attack Social History Household Members: Spouse Housing: House Are you a primary health care facility administrator to a significant other at home: No Do you presently have visiting nurse or other home services: No 75 years or older and lives alone: No Alcohol intake: current Patient Tobacco Use Status: Never used Tobacco e-Cigarette/Vaping Use: Never Used service: No Current occupational status: retired 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 Hoang Ndiaye, Anita Pryor, Napoleon Cespedes and colleagues, with an educational chuck from [employer]. Review of Systems Const Denies chills, Denies fatigue, Denies fever(s), Denies headache(s) and Denies weakness ENT Denies dizziness and Denies headache(s) Card Denies chest pain, Denies lightheadedness, Denies dyspnea and Denies other (Palpitations) Resp Denies cough, Denies dyspnea, Denies wheezing and Denies other ( shortness of breath) Musc Denies numbness and Denies tingling Neuro Denies dizziness, Denies headache(s), Denies numbness, Denies tingling, Denies paresthesias and Denies weakness Psych Denies anxiety and Denies depression Endo Denies fatigue Aller/Immun Denies wheezing Physical exam (Primary Care) Vital Signs: Last Vital Signs Temp 98.3 F 11/21/24 13:44 Pulse 60 11/21/24 13:44 Resp 14 11/21/24 13:44 BP 130/60 11/21/24 13:44 Pulse Ox 96 11/21/24 13:44 Oxygen Delivery Method Room Air 11/21/24 13:44 BMI result Body Mass Index 29.6 Tobacco/Smoking Status: Tobacco use Status Tobacco use date assessed 06/02/23 11/21/24 13:38 Patient Tobacco Use Status Never used Tobacco 11/21/24 13:38 e-Cigarette/Vaping Use Never Used 11/21/24 13:38 Thrive Assessment: Date of Thrive Assessment Date Thrive assessed 07/05/24 11/21/24 13:38 Const General: no acute distress and well developed Nutritional Appearance: well nourished Orientation/consciousness: patient oriented x3 HENMT Head: Yes normocephalic and Yes atraumatic Eyes General: appearance normal, both eyes and all related structures Pupils: Equal, round and reactive pupils present EOM: EOMs intact bilaterally Resp Effort & Inspection: normal respiratory effort Auscultation: clear to auscultation bilaterally Cardio Rate: regular rate Rhythm: regular rhythm Heart sounds: S1 normal heart sound present, S2 normal heart sound present, no gallops, no murmurs and no rubs Neuro General: patient oriented x3 and gait normal Cranial nerves: Yes Equal, round and reactive pupils present Psych Affect: normal affect Coding Level of Care Code Est Pt Level 4 (24956) Diagnoses Uncontrolled diabetes mellitus with hyperglycemia E11.65 Primary hypertension I10 Hypertension type: primary hypertension Urinary retention R33.9 Assessment & Plan Assessment & Plan (1) Uncontrolled diabetes mellitus with hyperglycemia: Code(s): E11.65 - Type 2 diabetes mellitus with hyperglycemia Category: Medical Plan: A1c?continues?to?climb?from?10.3-10.6%. Patient?did?not?get?Mounjaro. He?also?did?not?start?contingency?plan?of?adding Glipizide?and?increasing?metformin?to?1000?mg?b.i.d. He?has?been?taking?metformin?1000?mg?q.a.m. We?discussed?that?he?will?need?more?medication He?will?take?glipizide?q.a.m.?and?metformin?1000?mg?b.i.d. If?he?gets?the?Mounjaro?he?can?hold?glipizide?and?will?decrease?metformin?to?500 ?mg?b.i.d.?until?he?follows?up?with?me. Patient?has?been?having?difficulty?being compliant?with?plan We?discussed?that?if?things?are?heading?in?the?right?direction?we?will?continue? to?work?at?it,?otherwise?will?ask?a?endocrinology?specialist?to?help?him?with?di abetes. (2) High blood pressure: Code(s): I10 - Essential (primary) hypertension Category: Medical Qualifiers: Hypertension type: primary hypertension Qualified Code(s): I10 - Essential (primary) hypertension Plan: Controlled. Goal?is?less?than?140/90 Continue?current?medications (3) Urinary retention: Code(s): R33.9 - Retention of urine, unspecified Category: Medical Plan: Patient?notes?decreased?urine?stream?at?times Also?frequent?voiding,?especially?at?night Referred?to?Urology Orders: Referrals Urology Referral R33.9 - Retention of urine, unspecified Medications: Refilled metformin 1,000 mg PO BID 30 days 60 tabs 2RF
[2024-11-21 13:44] VITALS: BP 130/60; PULSE 60; RESP 14; TEMP 36.8; O2SAT 96; BMI 29.6
--- OUTSIDE RECORDS SUMMARY | 2024-11-21 15:57 | XMS_ITS | Continuity of Care Document ---
Author Organization [facility] Address [address] [address] Phone Care Team Providers Care Development Architect Name Role Phone Yusuf Contreras MD [...] Diagnoses Date Provider Providers Copied on Encounter [facility], [address], [id number] , tel:[phone] [facility] No Information 3 Diane Goldberg. [address], [id number] , [place]. tel:[phone] [facility], [address] [place] [address], [id number] , [place] tel: [phone] [facility] No Information 3 Rahul Valdez. [address] [place] [address], [address], [place]. tel: [phone] [facility] [address] [place] [address], [id number] , [place] tel: [phone] [facility] cough (chief complaint) Problem List (chief complaint) Acute upper respiratory infection, unspecifiedEssential (primary) hypertension 2 Rahul Valdez. [address] [place] [address], [address], [place]. tel: [phone] [facility], [address], [id number] , [place] tel: [phone] [facility] cold symptoms (chief complaint) COVID-19Essential (primary) hypertension Sep- 1 Ildefonso Mars. [address], [id number] , [place]. tel: [phone] Offic/outpt E&m [facility], [address], [id number] , tel: [phone] [facility] R knee pain (chief complaint) Problem List (chief complaint) OverweightEssential (primary) hypertensionPain in right kneeArrhythmia 1 Diane Goldberg. [address] [place] [address], [id number] , [place]. tel: [phone] Family History Family Member Type Diagnosis Age At Onset Mother Problem (finding) hypercholesterolemia Mother Problem (finding) hypertension Payers Payer name Insurance type Covered constitution party ID Authoriza tion(s) No Information Social [...] due Goal Hepatitis C Test ing Baby Wimberley. Due on due Goal H&P. Due on [...] Goal Td vaccine. Due on due Goal PSA. Due on due Goal Hepatitis C Test ing Baby [place]. Due on due Goal Influenza vaccine. Due [...] se screening. Due on due Goal Zoster vaccine (). Due on due Goal H&P. Due on due Goal Colonoscopy. Due on 023 due Goal Sigmoidoscopy. Due on due Goal Glaucoma Screening. Due on M due Goal Sigmoidoscopy. Due on due Goal PSA. Due on due Goal Pneumovax 23. Due on 2021 due Goal Glaucoma Screening. Due on A due Goal Td vaccine. Due on due Goal Zoster vaccine (). Due on due Goal Hepatitis C Test ing Baby W[place]. Due on due Goal Influenza vaccine. Due [...] due Goal Cologuard. Due on due Goal PSA. Due on due Goal Prevnar 13. Due on due Goal Pneumovax 23. Due on 2020 due Goal Td vaccine. Due on due Goal H&P. Due on due Goal Hepatitis C Test ing Baby [place]. Due on due Goal Sigmoidoscopy. Due on [...] due Goal Hepatitis C Test ing Baby W[place]ley. Due on due Goal H&P. Due on due Future Order: Lab Order CBC W/DI FF,W/PLT (3000), Scheduled for: , Scheduled for: Sent Future Order: Lab Order COMPREHE NSIVE METABOLIC PANEL ([id number]), Scheduled for: , Scheduled for: Sent Future Order: Lab Order LIPID PA MERCEDES ([id number]), Scheduled for: , Scheduled for: Sent Future Order: Lab Order TSH W RE FLEX TO FREE T4 ([id number]), Scheduled for: , Scheduled for: Sent History [...] cristinaPrevious PCP: me years ago moved to [place] was seeing a provider in [place] Dr. 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[place] by service center technician EKG sinus arrhythmia P-67 intraatrial conduction delay Left axis deviation no acute ST- T changes no prior EKG to compare to Last colonoscopy: within past 5 years R knee pain Functional Status Date Functional Assessmen t No Information Instructions Date Instruction Additional Infor jaime Anti-cough prescript ions ordered.You can take kgtn-pbh-zpqfnwv guaifenesin also known as Mucinex to help with mucus relief.You can take xbrx-vyt-nmxihnc fluticasone nasal spray (Flonase) to help with [...] to Essen tial (primary) hypertension 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 Weight loss can usually occur [...]
== END 2024-11-21 14:17 | disposition home or self-care (01) ==
LOC: HO.HMCFM 13:30
PROVIDERS: PCP Family Medicine; Visit Provider Family Medicine
DX: E11.65 Type 2 diabetes mellitus with hyperglycemia (principal); I10 Essential (primary) hypertension; R33.9 Retention of urine, unspecified

== ENCOUNTER → 2024-11-21 13:29 | Outpatient (BNVA) | payer BC, SELFPAY | PROVIDERS: PCP Family Medicine; Visit Provider Family Medicine ==

== ENCOUNTER 2024-12-27 09:33 | Outpatient (AMB) | payer BC, SELFPAY ==
--- OUTSIDE RECORDS SUMMARY | 2022-11-17 12:48 | XMS_ITS | Continuity of Care Document ---
Author Organization [facility] Address [address] [address] Phone Care Team Providers Care Program Paraprofessional Name Role Phone Yusuf Contreras MD Unavailable Unavailable Allergies, Adverse Reactions, Alerts Substance Reaction Status Criticality No Known Allergies Active No Inform ation Medications Medication Instructions Dosage Effective Dates (start - stop) Status Comments metoprolol succinate ER 50 mg tablet,extended release 24 hr take 1 tablet by oral route every day 50 MG - Active losartan 100 mg-hydrochlorothiaz rose 25 mg tablet take 1 tablet by oral route every day 1.00 tablet - Active amlodipine 10 mg tablet take 1 tablet by oral route every day 1 tablet - Active Flonase Allergy Relief 50 mcg/actuation nasal spray,suspension spray 1 - 2 spray by intranasal route every day in each nostril - Active Procedures Procedure Date Offic/outpt E&m Estab Low-mod 2 Offic/outpt E&m Estab Low-mod 1 Offic/outpt E&m New Mod Sever 1 Advance Directives Directive Yes / No Effective Date File Name No Information Encounters Encounter Description Practice Location Reason(s) For Visit Diagnoses Date Provider Providers Copied on Encounter [facility], [address], [id number] , tel:[phone] [facility] No Information 3 Diane Goldberg. [address], [id number] , [place]. tel:[phone] [facility], [address] [place] [address], [id number] , [place] tel: [phone] [facility] No Information 3 Rahul Valdez. [address] [place] [address], [address], [place]. tel: [phone] [facility] [address] [place] [address], [id number] , [place] tel: [phone] [facility] cough (chief complaint) Problem List (chief complaint) Acute upper respiratory infection, unspecifiedEssential (primary) hypertension 2 Rahul Valdez. [address] [place] [address], [address], [place]. tel: [phone] [facility] [address], [id number] , [place] tel: [phone] [facility] cold symptoms (chief complaint) COVID-19Essential (primary) hypertension Sep- 1 Ildefonso Mars. [address], [id number] , [place]. tel: [phone] Offic/outpt E&m [facility], [address], [id number] , tel: [phone] [facility] R knee pain (chief complaint) Problem List (chief complaint) OverweightEssential (primary) hypertensionPain in right kneeArrhythmia 1 Diane Goldberg. [address] [place] [address], [id number] , [place]. tel: [phone] Family History Family Member Type Diagnosis Age At Onset Mother Problem (finding) hypercholesterolemia Mother Problem (finding) hypertension Payers Payer name Insurance type Covered green party ID Authoriza tion(s) No Information Social History Type Description Quantity Date Captured Comments Alcohol Use Details Unknown Caffeine Use Details Unknown Tobacco Use Status No Information Smoking Status No Information Sex Male Chief Complaint And Reason For Visit No Information Reason For Referral Reason For Referral No Information Plan Of Treatment Date Type Action Status Goal Hepatitis C Test ing Baby [place]. Due on due Goal H&P. Due on due Goal Influenza vaccine. Due on due Goal Zoster vaccine (). Due on due Goal Colonoscopy. Due on 023 due Goal Td vaccine. Due on due Goal Hepatitis C screening. Due o n due Goal PSA. Due on due Goal Unhealthy drug u se screening. Due on due Goal Cologuard. Due on due Goal FIT-DNA. Due on due Goal FOBT. Due on due Goal FIT. Due on due Goal CT-Colonography. Due on due Goal Sigmoidoscopy. Due on due Goal DEXA Scan. Due on due Goal Zoster vaccine. Due on due Goal Glaucoma Screening. Due on due Goal Prevnar 13. Due on due Goal Pneumovax 23. Due on 2022 due Goal Td vaccine. Due on due Goal Glaucoma Screening. Due on due Goal Sigmoidoscopy. Due on due Goal Colonoscopy. Due on 023 due Goal H&P. Due on due Goal Zoster vaccine (). Due on due Goal PSA. Due on due Goal Hepatitis C Test ing [place]. Due on due Goal Influenza vaccine. Due on due Goal FOBT. Due on due Goal Prevnar 13. Due on due Goal Cologuard. Due on 3 due Goal Pneumovax 23. Due on 2022 due Goal Zoster vaccine. Due on due Goal DEXA Scan. Due on [address]-Colonography. Due on due Goal FIT. Due on due Goal FIT-DNA. Due on due Goal Hepatitis C screening. Due o n due Goal Unhealthy drug u se screening. Due on due Goal FOBT. Due on due Goal Cologuard. Due on 2 due Goal H&P. Due on due Goal DEXA Scan. Due on 2 due Goal Colonoscopy. Due on 022 due Goal Prevnar 13. Due on 22 due Goal Zoster vaccine. Due on due Goal Influenza vaccine. Due on due Goal Hepatitis C Test ing [place]. Due on due Goal Zoster vaccine (1st). Due on due Goal Td vaccine. Due on due Goal Glaucoma Screening. Due on A due Goal Pneumovax 23. Due on 2021 due Goal PSA. Due on due Goal Sigmoidoscopy. Due on due Goal PSA. Due on due Goal Prevnar 13. Due on due Goal Pneumovax 23. Due on 2020 due Goal Td vaccine. Due on due Goal H&P. Due on due Goal Hepatitis C Test ing [place]. Due on due Goal Sigmoidoscopy. Due on due Goal Zoster vaccine. Due on due Goal Zoster vaccine (). Due on due Goal Glaucoma Screening. Due on due Goal Cologuard. Due on due Goal DEXA Scan. Due on due Goal Colonoscopy. Due on due Goal FOBT. Due on due Goal Influenza vaccine. Due on due Goal Colonoscopy. Due on due Goal Influenza vaccine. Due on due Goal FOBT. Due on due Goal DEXA Scan. Due on due Goal Cologuard. Due on due Goal Glaucoma Screening. Due on due Goal Zoster vaccine (1st). Due on due Goal Zoster vaccine. Due on due Goal Sigmoidoscopy. Due on due Goal Hepatitis C Test ing [place]. Due on due Goal H&P. Due on due Goal Td vaccine. Due on due Goal Pneumovax 23. Due on 2020 due Goal Prevnar 13. Due on due Goal PSA. Due on due Future Order: Lab Order CBC W/DI FF,W/PLT (3000), Scheduled for: , Scheduled for: Sent Future Order: Lab Order COMPREHE NSIVE METABOLIC PANEL ([id number]), Scheduled for: , Scheduled for: Sent Future Order: Lab Order LIPID PA MERCEDES ([id number]), Scheduled for: , Scheduled for: Sent Future Order: Lab Order TSH W RE FLEX TO FREE T4 ([id number]), Scheduled for: , Scheduled for: Sent History Of Present Illness Encounter Date Complaint History Of Prese nt Illness cough Onset: 3 days ag o. The problem has improved. Associated symptoms include cough, fever and sore throat. Pertinent negatives include chills, dyspnea, fatigue and wheezing. Problem List Experiencing pro ductive cough with green/yellow mucus, nasal drainage, nasal congestion, and sore throat. Temperature today was 98F. The highest he noticed over the past 3 days was 99.4F.Denies chest pain and shortness of breath. TELEHEALTH VISIT:Physical location of the provider: In officePhysical location of the patient: homeOther participants of the visit: noneQuality of video was excellent.Quality of audio was excellent. cold symptoms Onset: on 2020. Context: Covid+ 03/06/21. Associated symptoms include chills, fatigue, night sweats and loss of appetite. Pertinent negatives include fever. Additional information: Was taking a 325mg aspirin until yesterday. cold symptoms (comments) Physica l location of the provider: In officePhysical location of the patient: HomeOther participants of the visit: Yulia MCKEON Quality of video was good.Quality of audio was good. Problem List Here to saundra cristinaPrevious PCP: me years ago moved to [place] was seeing a provider in [place] Dr. 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[place] by featherer EKG sinus arrhythmia P-67 intraatrial conduction delay Left axis deviation no acute ST- T changes no prior EKG to compare to Last colonoscopy: within past 5 years R knee pain Functional Status Date Functional Assessmen t No Information Instructions Date Instruction Additional Infor jaime Refills for medications were deirdre khari Related to Essential (primary) hypertension Anti-cough prescript ions ordered.You can take ujim-nff-oioheez guaifenesin also known as Mucinex to help with mucus relief.You can take qdso-ler-bpcrong fluticasone nasal spray (Flonase) to help with over all symptoms. Two spray each nostril daily. This was ordered as prescription because you want to see if insurance covers it. You can gargle with warm salt water.Take ibuprofen or Tylenol as needed for aches and fever. Do not take more than 2400mg ibuprofen or 4000mg Tylenol in 24 hours.Additional therapies include: vitamin C 500 to 1000 mg daily; vitamin D3 1000-3000mg daily, and zinc 15-30 mg daily.Drink plenty of fluids and get plenty of rest. Call 911 and go to the Emergency Room if you develop any of the following:Trouble breathing, persistent pain or pressure in the chest, new confusion, inability to wake or stay awake, or bluish lips or face. Related to Acute upper respiratory infection, unspecified As above. Related to Essen tial (primary) hypertension Recommend 81 mg A spirin daily. Pepcid 20-40 mg daily. For any severe symptoms such as SOB especially with exertion go to the ER. We discussed the SARS -Cov-2 Specific Monoclonal antibody treatment adn fact sheet with you and you agreed to do this treatment on 03/10/21. Related to COVID-19 Dr. Engel featherer with CVC Related to Arrhythmia Voltaren Gel OTC Remy l try antiinflammatory and steroid ortho consult Written plan given. Medications reviewed and updated. Follow up 2 weeks and follow up as needed. Please schedule your follow up appointments at this time in order to be seen when due. You can schedule appointments up to one year in advance. Related to Pain in right knee Blood pressure was a little high in the office. A normal blood pressure is 120 over 80. Monitor your blood pressure. Recommend low sodium diet.Need records from previous PCP Related to Essential (primary) hypertension Diet: Do not start a diet that you cannot keep up the rest of your life. Fad diets will set you up for failure. The welch is smaller portion size, exercise, and gradual weight loss. You absolutely need to track your calories by writing them down or using a program such as [employer] or loseit.com. Weight loss can usually occur when females consume 1200 to 1500 calories per day and males 1500 to 1800. Avoid all drinks with calories. Exercise at least 30 minutes five times a week and walk during the day as much as possible. Consider getting a fitbit to keep track of how many steps you walk. The Mediterranean diet is the diet recommended most often by healthcare providers which emphasizes plant-based foods such as fruits, vegetables, whole grains, legumes, and nuts. It uses healthy oils such as olive oil or canola oil and recommends eating fish two times a week. Related to Overweight Assessments Type Assessment Date No Information Patient Care Teams Name Effective Dates (start - stop) Status Members No Information
--- NOTE | 2024-12-27 10:02 | A.OFFPC_ITS ---
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 Dx: I10. Daily As directed, 999 days/lifetime cholecalciferol (vitamin D3) (Vitamin D3) 6,000 units PO DAILY clotrimazole 1% (Antifungal (clotrimazole)) 1 appl topical BID 2 weeks [Fish Oil PO DAILY] glipizide 5 mg PO QAM 90 days hydrocortisone 1% (Cortisone (hydrocortisone)) 1 appl topical BID PRN 5 days losartan-hydrochlorothiazide 100-25 mg 1 tab PO DAILY 90 days metformin 1,000 mg PO BID 30 days metoprolol succinate ER 50 mg PO DAILY 90 days naproxen (Naprosyn) 500 mg PO Q12H PRN sildenafil 50 mg PO DAILY PRN 30 days tamsulosin 0.4 mg PO BEDTIME 90 days tirzepatide (Mounjaro) 2.5 mg (0.5 mL) subcut QWEEK 28 days Tobacco use date assessed: 06/02/23 Dental Screening Dental Screen Date: 04/14/23 HPI f/u diabetes HPI Details 69 y/o male presents to f/u diabetes. Last A1c 10.6%. in November. He had not been able to get Mounjaro. Also did not start contingency plan of adding glipizide and increasing metformin to 1000mg b.i.d. He still has not been able to get Mounjaro. He is otherwise taking glipizide and metformin 1000mg b.i.d. A1c today improved to 9.7%. Pt reports some GERD - has been taking tums for relief. Blood pressure today 130/80, 65p. [facility] Medical History Diabetes Finger fracture, right Acute eczema High cholesterol High blood pressure Surgical History History of arthroscopic surgery of shoulder Hx of hand surgery (05/26/23) History of right cataract surgery Family History Mother Heart attack Social History Household Members: Spouse Housing: House Are you a primary palliative care nurse practitioner to a significant other at home: No Do you presently have visiting nurse or other home services: No 75 years or older and lives alone: No Alcohol intake: current Patient Tobacco Use Status: Never used Tobacco e-Cigarette/Vaping Use: Never Used service: No Current occupational status: retired 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 Hoang Ndiaye, Anita Pryor, Napoleon Cespedes and colleagues, with an educational chuck from [employer]. Review of Systems Const Denies chills, Denies fatigue, Denies fever(s), Denies headache(s) and Denies weakness ENT Denies dizziness and Denies headache(s) Card Denies dyspnea Resp Denies cough, Denies dyspnea, Denies wheezing and Denies other (shortness of breath) Musc Denies numbness and Denies tingling Neuro Denies dizziness, Denies headache(s), Denies numbness, Denies tingling and Denies weakness Psych Denies anxiety and Denies depression Endo Denies fatigue Aller/Immun Denies wheezing Physical exam (Primary Care) Vital Signs: Last Vital Signs Temp 97.9 F 12/27/24 10:08 Pulse 65 12/27/24 10:08 Resp 12 12/27/24 10:08 BP 130/80 12/27/24 10:08 Pulse Ox 96 12/27/24 10:08 Oxygen Delivery Method Room Air 12/27/24 10:08 BMI result Body Mass Index 29.6 Tobacco/Smoking Status: Tobacco use Status Tobacco use date assessed 06/02/23 12/27/24 10:11 Patient Tobacco Use Status Never used Tobacco 12/27/24 10:11 e-Cigarette/Vaping Use Never Used 12/27/24 10:11 Thrive Assessment: Date of Thrive Assessment Date Thrive assessed 07/05/24 12/27/24 10:11 Const General: well developed; No acute distress Nutritional Appearance: well nourished Orientation/consciousness: patient oriented x3 HENMT Head: Yes normocephalic and Yes atraumatic Eyes General: appearance normal, both eyes and all related structures Pupils: Equal, round and reactive pupils present EOM: EOMs intact bilaterally Resp Effort & Inspection: normal respiratory effort Neuro General: patient oriented x3 and gait normal Cranial nerves: Yes Equal, round and reactive pupils present Psych Affect: normal affect Coding Level of Care Code Est Pt Level 4 (94087) Diagnoses Diabetes E11.9 GERD (gastroesophageal reflux disease) K21.9 Primary hypertension I10 Hypertension type: primary hypertension Assessment & Plan Assessment & Plan (1) Diabetes: Code(s): E11.9 - Type 2 diabetes mellitus without complications Category: Medical Plan: A1c improved from 10.3-9.8%. Improved but still far above goal of less than 7.0%. Encouraged patient to continue taking metformin and glipizide as prescribed. Encouraged him to start Mounjaro. Continue diabetic diet low in sugars and starches Will follow-up in 2 months (2) GERD (gastroesophageal reflux disease): Code(s): K21.9 - Gastro-esophageal reflux disease without esophagitis Category: Medical Plan: Patient notes GERD/dyspepsia when he eats spicy foods. This improved with Tums. He can try some famotidine which he can take prior to trigger foods. (3) High blood pressure: Code(s): I10 - Essential (primary) hypertension Category: Medical Qualifiers: Hypertension type: primary hypertension Qualified Code(s): I10 - Essential (primary) hypertension Plan: Blood pressure is controlled. Goal is less than 140/90 Continue current medication Medications: New famotidine 40 mg PO DAILY PRN 30 tabs 2RF dyspepsia 30 days
[2024-12-27 10:08] VITALS: BP 130/80; PULSE 65; RESP 12; TEMP 36.6; O2SAT 96; BMI 29.6
== END 2024-12-27 10:33 | disposition home or self-care (01) ==
LOC: HO.HMCFM 09:34
PROVIDERS: PCP Family Medicine; Visit Provider Family Medicine
DX: E11.9 Type 2 diabetes mellitus without complications (principal); K21.9 Gastro-esophageal reflux disease without esophagitis; I10 Essential (primary) hypertension

== ENCOUNTER 2025-01-28 08:49 | Outpatient (AMB) | payer BC, SELFPAY ==
--- NOTE | 2025-01-28 08:51 | MHC.PC.OV ---
Vital Signs 01/28/25 08:56 Height 5 ft 11 in Weight 210 lb 8 oz BMI 29.4 BP 134/70 Blood Pressure Location Rt brachial Position Sitting Respiration 12 Pulse 56 Pulse Source Pulse Oximeter Temp 97.7 F Temp Source Temporal Artery Scan Pulse Oximetry (%) 96 Oxygen Delivery Method Room Air Intake Visit Reasons: PE Intake Note: Rob presents in the office today for his annual physical. Allergies Seasonal Allergies Allergy (Verified 01/28/25 08:53) Runny Nose Medication List - Last Reconciled 01/28/25 by Chaitanya Gleason MD amlodipine 10 mg PO DAILY 90 days blood pressure monitor Automatic, Digital. Dx: I10. Daily As directed, 999 days/lifetime cholecalciferol (vitamin D3) (Vitamin D3) 6,000 units PO DAILY clotrimazole 1% (Antifungal (clotrimazole)) 1 appl topical BID 2 weeks ezetimibe (Zetia) 10 mg PO DAILY 90 days famotidine 40 mg PO DAILY PRN 30 days [Fish Oil PO DAILY] glipizide 5 mg PO QAM 90 days hydrocortisone 1% (Cortisone (hydrocortisone)) 1 appl topical BID PRN 5 days losartan-hydrochlorothiazide 100-25 mg 1 tab PO DAILY 90 days metformin 1,000 mg PO BID 30 days metoprolol succinate ER 50 mg PO DAILY 90 days naproxen (Naprosyn) 500 mg PO Q12H PRN sildenafil 50 mg PO DAILY PRN 30 days tamsulosin 0.4 mg PO BEDTIME 90 days tirzepatide (Mounjaro) 2.5 mg (0.5 mL) subcut QWEEK 28 days Tobacco use date assessed: 01/28/25 Fall risk assessment: No Falls in past year Last assessed Fall Risk: 01/28/25 Dental Screening Dental Screen Date: 01/28/25 Did you have a dental visit in the last 12 months?: Yes Did you have a dental problem in the last 6 months where you did not have access to dental care?: No Was dental information given to patient?: Patient has dentist HPI PE HPI Details 69 y/o male presents for a CPE with f/u labs and health maintenance. No recent CPE lanbs to review. Prior A1c 10/17/24 10.3%. A1c today 01/28/25 is 8.5%. He is on glipizide 5mg, metformin 1000mg b.i.d, mounjaro 2.5mg. BP today 134/70, 56p. He is on losartan-HCTZ 100-25mg, metoprolol 50mg, amlodipine 10mg daily. [facility] Medical History Diabetes Finger fracture, right Acute eczema High cholesterol High blood pressure Surgical History History of arthroscopic surgery of shoulder Hx of hand surgery (05/26/23) History of right cataract surgery Family History Mother Heart attack Social History (Updated 01/28/25 @ 08:56 by Alcira Paez MA) Household Members: Spouse Housing: House Are you a primary healthcare business analyst to a significant other at home: No Do you presently have visiting nurse or other home services: No 75 years or older and lives alone: No Alcohol intake: current Patient Tobacco Use Status: Never used Tobacco e-Cigarette/Vaping Use: Never Used Second Hand Smoke Exposure: No Use of substances other than those prescribed or required for medical reasons: No service: No Current occupational status: retired 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 Hoang Ndiaye, Anita Pryor, Napoleon Cespedes and colleagues, with an educational chuck from [employer]. Review of Systems Const Denies chills, Denies fatigue, Denies fever(s), Denies headache(s) and Denies weakness Eyes Denies change in vision ENT Denies dizziness, Denies headache(s), Denies hearing loss, Denies nasal congestion, Denies sinus pain, Denies sinus pressure and Denies sore throat Card Denies chest pain, Denies lightheadedness, Denies dyspnea and Denies other (palpitations) Resp Denies cough, Denies dyspnea and Denies wheezing GI Denies abdominal pain, Denies melena, Denies hematochezia, Denies change in bowel habits, Denies dyspepsia and Denies nausea Denies hematuria and Denies dysuria Musc Denies abnormal gait, Denies myalgias, Denies arthralgias, Denies numbness and Denies tingling Skin/Breast Denies rash, Denies unusual bruising and Denies wounds Neuro Denies abnormal gait, Denies dizziness, Denies headache(s), Denies memory loss, Denies numbness, Denies Sensory deficit (Neuro), Denies tingling and Denies weakness Psych Denies anxiety, Denies depression and Denies memory loss Endo Denies cold intolerance, Denies fatigue, Denies heat intolerance, Denies polydipsia and Denies polyuria Jake/Lymph Denies easy bleeding and Denies easy bruising Aller/Immun Denies wheezing Physical exam (Primary Care) Vital Signs: Last Vital Signs Temp 97.7 F 01/28/25 08:56 Pulse 56 01/28/25 08:56 Resp 12 01/28/25 08:56 BP 134/70 01/28/25 08:56 Pulse Ox 96 01/28/25 08:56 Oxygen Delivery Method Room Air 01/28/25 08:56 BMI result Body Mass Index 29.4 Tobacco/Smoking Status: Tobacco use Status Tobacco use date assessed 01/28/25 01/28/25 08:56 Patient Tobacco Use Status Never used Tobacco 01/28/25 08:56 e-Cigarette/Vaping Use Never Used 01/28/25 08:56 Thrive Assessment: Date of Thrive Assessment Date Thrive assessed 07/05/24 01/28/25 08:52 Const General: no acute distress, well developed, alert and awake Nutritional Appearance: well nourished Orientation/consciousness: patient oriented x3 HENMT Head: Yes normocephalic and Yes atraumatic Ears: hearing grossly normal bilaterally and TM's normal bilaterally General nose exam: Normal external nose present and Normal nares present Mouth: Normal oral and palatal mucosa present and moist mucous membranes Teeth and gingiva: dentition normal Throat: Yes posterior oropharynx normal Eyes General: appearance normal, both eyes and all related structures Pupils: Equal, round and reactive pupils present and Pupil accommodation reflex normal EOM: EOMs intact bilaterally Neck Neck: Yes normal visual inspection, Yes no lymphadenopathy and Yes trachea midline Thyroid: Thyroid normal Carotids: no bruits Lymphatic: no lymphadenopathy noted Chest Chest palpation & inspection: normal inspection of the chest Resp Effort & Inspection: normal respiratory effort Auscultation: clear to auscultation bilaterally Cardio Rate: regular rate Rhythm: regular rhythm Heart sounds: S1 normal heart sound present, S2 normal heart sound present, no gallops, no murmurs and no rubs Bruits: no abdominal aortic bruits and no carotid bruits GI Palpation (GI): No Abdominal aortic bruit present, Soft to palpation, nontender, No hepatosplenomegaly present and No Rebound tenderness present Auscultation: normal bowel sounds General: Yes no CVA tenderness Back/Spine/Pelvis Back: no CVA tenderness Cervical Spine: cervical ROM normal and No Cervical spine tenderness Thoracic/Lumbar Spine: thoraco-lumbar ROM normal, No pain with thoraco-lumbar ROM, No thoracic spinal tenderness and No lumbar spinal tenderness Skin Lesions: no lesions Rashes: no rashes Trauma: no lacerations or abrasions Wounds: no wounds Nails: normal Neuro General: patient oriented x3 Cranial nerves: Yes Equal, round and reactive pupils present Cognition (Neuro): normal cognition Gait exam (Neuro): Normal gait present Motor exam (neuro): 5/5 motor strength present throughout Sensory Exam: No Sensory deficit (Neuro) Deep tendon reflexes (DTR's): Right patellar reflex intensity grade: 2+ and Left patellar reflex intensity grade: 2+ Extrem General: Yes normal to inspection and No edema Psych Appearance: grossly normal Affect: normal affect Attitude: cooperative Thought process: Normal thought process present Coding Level of Care Code Est Pt Level 3 (26856) Est Pt Prev Care >65y(44250) Diagnoses Adult general medical examination Z00.00 Diabetes E11.9 Hyperlipidemia E78.5 Erectile dysfunction N52.9 Screening for colon cancer Z12.11 Screening for prostate cancer Z12.5 Assessment & Plan Assessment & Plan (1) Adult general medical examination: Code(s): Z00.00 - Encounter for general adult medical examination without abnormal findings Category: Medical Plan: 69-year-old male presents for complete physical exam (2) Diabetes: Code(s): E11.9 - Type 2 diabetes mellitus without complications Category: Medical Plan: A1c continues to improve from 9.8% to 8.5%. Still significantly above goal of 7.0%. He is taking metformin and glipizide but Has not starting Mounjaro. Has an upcoming appointment in February to follow-up on diabetes and says he is planning to start Mounjaro (3) Hyperlipidemia: Code(s): E78.5 - Hyperlipidemia, unspecified Category: Medical Plan: LDL cholesterol is quite high He says he was on statins in the past but did not tolerate them due to leg cramps Will try Zetia Encouraged a diet low in saturated fats and cholesterol Will recheck lipids prior to his next visit discuss (4) Erectile dysfunction: Code(s): N52.9 - Male erectile dysfunction, unspecified Category: Medical Plan: Trial Cialis (5) Screening for colon cancer: Code(s): Z12.11 - Encounter for screening for malignant neoplasm of colon Category: Medical Plan: Patient says last colonoscopy was about 3 and half years ago and he was advised to follow-up 5 years. Up-to-date Will discuss again next year (6) Screening for prostate cancer: Code(s): Z12.5 - Encounter for screening for malignant neoplasm of prostate Category: Medical Plan: PSA within normal range. Will continue to monitor annually Orders: Orders AMB Hemoglobin A1c Today E11.9 - Type 2 diabetes mellitus without complications LDL Cholesterol Direct Today E78.00 - Pure hypercholesterolemia, unspecified, E78.5 - Hyperlipidemia, unspecified Lipid Panel Today E78.00 - Pure hypercholesterolemia, unspecified, Z00.00 - Encounter for general adult medical examination without abnormal findings Comprehensive [place]. Panel Fast Today E78.00 - Pure hypercholesterolemia, unspecified, Z00.00 - Encounter for general adult medical examination without abnormal findings Medications: New ezetimibe (Zetia) 10 mg PO DAILY 90 tabs 3RF 90 days tadalafil (Cialis) administer approximately 30min before sexual activity; do not use more than 1 dose per 24hrs 10 mg PO DAILY PRN 10 tabs 4RF sexual activity 30 days
[2025-01-28 08:56] VITALS: BP 134/70; PULSE 56; RESP 12; TEMP 36.5; O2SAT 96; BMI 29.4
== END 2025-01-28 09:44 | disposition home or self-care (01) ==
LOC: HO.HMCFM 08:50
PROVIDERS: PCP Family Medicine; Visit Provider Family Medicine
DX: Z00.00 Encounter for general adult medical examination without abnormal findings (principal); E11.69 Type 2 diabetes mellitus with other specified complication; E78.5 Hyperlipidemia, unspecified; N52.9 Male erectile dysfunction, unspecified; Z12.11 Encounter for screening for malignant neoplasm of colon; Z12.5 Encounter for screening for malignant neoplasm of prostate

== ENCOUNTER 2025-02-04 10:18 | Outpatient (AMB) | payer BC, SELFPAY ==
--- NOTE | 2025-02-04 10:32 | A.OFFVIS_ITS ---
Intake Visit Reasons: nocturia/weak urine stream Intake Note: New Patient is present for Weak stream and Nocturia Urology Rx:Sildenafil, Tamsulosin PVR:249 mls Blood Thinners:none Imaging completed: none Insulator Technician Required: No Accompanied by: Self / Same As Patient Allergies Seasonal Allergies Allergy (Verified 02/04/25 10:33) Runny Nose HPI Comments Details: Rob is a pleasant male. He is a patient of Dr. Gleason. He seen for the following urologic conditions - urgency and frequency Poorly controlled diabetic Last HbA1c 11/10 10.6% On tamsulosin Primary issue is urgency with urinary volume Discussed pathophysiology of poorly controlled diabetes While we can give medications to help with flow unable to address urgency and frequency until he has a significantly reduced HbA1c Will start on daily tadalafil for bladder stability [facility] Medical History Diabetes Finger fracture, right Acute eczema High cholesterol High blood pressure Surgical History History of arthroscopic surgery of shoulder Hx of hand surgery (05/26/23) History of right cataract surgery Family History Mother Heart attack Social History (Updated 01/28/25 @ 08:56 by Alcira Paez MA) Household Members: Spouse Housing: House Are you a primary personal care attendant to a significant other at home: No Do you presently have visiting nurse or other home services: No 75 years or older and lives alone: No Alcohol intake: current Patient Tobacco Use Status: Never used Tobacco e-Cigarette/Vaping Use: Never Used Second Hand Smoke Exposure: No service: No Current occupational status: retired 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 Cognitive needs: No Hearing needs: No Vision needs: No Review of Systems Const Denies chills and Denies fever(s) Card Reports no additional complaints and Denies syncope Resp Denies cough GI Denies abdominal pain and Denies heartburn Reports as per HPI and Denies change in libido Neuro Denies syncope Psych Denies change in libido Endo Denies change in libido Physical Exam Const General: cooperative, healthy appearing, comfortable and no acute distress Orientation/consciousness: patient oriented x3 HEENT Face and sinus: Yes normal facial exam Mouth: moist mucous membranes Neck Neck: Yes normal visual inspection, Yes full ROM and Yes trachea midline Chest Chest palpation & inspection: normal inspection of the chest Resp Effort & Inspection: normal respiratory effort, able to speak in complete sentences and no respiratory distress GI Inspection: Yes normal to inspection Back/Spine/Pelvis Cervical Spine: normal cervical lordosis Thoracic/Lumbar Spine: thoracic and lumbar spine normal to inspection Skin General skin exam: no rashes or lesions noted Neuro General: patient oriented x3, gait normal, tone normal and moves all extremities Extrem General: Yes normal to inspection and Yes capillary refill normal Assessment & Plan Assessment & Plan (1) Erectile dysfunction: Code(s): N52.9 - Male erectile dysfunction, unspecified Category: Medical (2) Urinary retention: Code(s): R33.9 - Retention of urine, unspecified Category: Medical (3) Bladder instability: Code(s): N32.89 - Other specified disorders of bladder Category: Medical Plan Start tadalafil Three-month follow-up Medications: New tadalafil 5 mg PO DAILY 90 tabs 0RF 90 days N32.89 - Other specified disorders of bladder Patient Instructions: This note is constructed using voice recognition software. While every effort has been made to ensure accuracy outpatient phlebotomist errors may have been included. Imaging studies, laboratory and physical exam results were discussed and reviewed in detail. No major barriers to patient understanding were identified. An opportunity to ask questions regarding the treatment plan was provided. All questions were answered. The patient expressed understanding and agreement with the above treatment plan. The patient is aware they should contact our office by phone for worsening of their current condition or the appearance of new urologic symptoms. Compliance is encouraged with any medications and followup testing that is ordered. It is a privilege to participate in the urologic care of your patient. If you have any questions or concerns regarding treatment for the above conditions, or other urologic issues, please do not hesitate to contact me. The office telephone contact is [phone]. Sincerely, Dr Prasad Kaur MD, [facility] - Urology Compassionate Specialist Care for the Genitourinary System Coding Level of Care Code New Pt Level 4 (73427) Diagnoses Erectile dysfunction N52.9 Urinary retention R33.9 Bladder instability N32.89
== END 2025-02-04 11:12 | disposition home or self-care (01) ==
LOC: HO.HUSH 10:19
PROVIDERS: PCP Family Medicine; Visit Provider Urology
DX: N52.9 Male erectile dysfunction, unspecified (principal); R33.9 Retention of urine, unspecified; N32.89 Other specified disorders of bladder; Z13.9 Encounter for screening, unspecified
CPT/HCPCS: 99204

== ENCOUNTER → 2025-02-04 10:18 | Outpatient (BNVA) | payer BC, SELFPAY | PROVIDERS: PCP Family Medicine; Visit Provider Urology | DX: N32.89 Other specified disorders of bladder (principal); N52.9 Male erectile dysfunction, unspecified; R33.9 Retention of urine, unspecified | CPT/HCPCS: 51798; 81003 ==

== ENCOUNTER 2025-03-19 10:59 | Outpatient (REF) | payer BC, SELFPAY ==
--- NOTE | ~2025-03-19 | XR_ITS ---
EXAMINATION: XR SHOULDER, RIGHT CLINICAL INFORMATION: M25.511 - Pain in right shoulder COMPARISON: None. TECHNIQUE: Two views of the right shoulder. FINDINGS: Normal bone mineralization. No fracture, dislocation, or suspicious bone lesion. Normal alignment. The glenohumeral joint demonstrates mild degenerative arthritis. The AC joint demonstrates mild superior and undersurface spurring. There is a type II acromion. No undersurface spurring. The subacromial space is preserved. Remainder of the soft tissue and bony structures appear normal. XR/XR shoulder RT min 2V IMPRESSION: 1. No acute bony abnormalities of the right shoulder. 2. 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 Electronically signed by: Andrés Baca MD 03/19/2025 11:38 AM EDT
== END 2025-03-19 11:00 | disposition home or self-care (01) ==
LOC: HO.HOSX 10:59
PROVIDERS: Visit Provider Orthopaedic Surgery
DX: M25.511 Pain in right shoulder (principal); M54.2 Cervicalgia
CPT/HCPCS: 73030

== ENCOUNTER 2025-03-19 11:07 | Outpatient (AMB) | payer BC, SELFPAY ==
--- NOTE | 2025-03-19 11:36 | A.OFFVIS_ITS ---
Vital Signs 03/19/25 11:40 Height 5 ft 11 in Weight 210 lb BMI 29.3 Intake Visit Reasons: Neck pain, Right shoulder pain Intake Note: Parish is a 69 year old male right hand dominant who presents with complaints of progressively worsening neck pain which radiates down his right arm to his right thumb. The patient describes his neck pain as sharp in nature. His symptoms have gotten worse over the last year in spite of continued non operative treatments. Also reports intermittent right shoulder pain. He did undergo left shoulder surgery several years ago. He denies any pain in his left shoulder. He also reports intermittent weakness in his right arm. He has failed the last 6 weeks of conservative treatment which has included Tylenol, anti-inflammatory medicines, a home exercise program and physical therapy exercises. The patient also reports ?numbness and tingling which radiates down his right arm to his right thumb. Allergies Seasonal Allergies Allergy (Verified 02/04/25 10:33) Runny Nose Medication List - Last Reconciled 03/19/25 by Maciej Rock MD amlodipine 10 mg PO DAILY 90 days blood pressure monitor Automatic, Digital. Dx: I10. Daily As directed, 999 days/lifetime cholecalciferol (vitamin D3) (Vitamin D3) 6,000 units PO DAILY clotrimazole 1% (Antifungal (clotrimazole)) 1 appl topical BID 2 weeks ezetimibe (Zetia) 10 mg PO DAILY 90 days famotidine 40 mg PO DAILY PRN 30 days [Fish Oil PO DAILY] glipizide 5 mg PO QAM 90 days hydrocortisone 1% (Cortisone (hydrocortisone)) 1 appl topical BID PRN 5 days losartan-hydrochlorothiazide 100-25 mg 1 tab PO DAILY 90 days metformin 1,000 mg PO BID 30 days metoprolol succinate ER 50 mg PO DAILY 90 days naproxen (Naprosyn) 500 mg PO Q12H PRN sildenafil 50 mg PO DAILY PRN 30 days tadalafil (Cialis) 10 mg PO DAILY PRN 30 days tadalafil 5 mg PO DAILY 90 days tamsulosin 0.4 mg PO BEDTIME 90 days tirzepatide (Mounjaro) 2.5 mg (0.5 mL) subcut QWEEK 28 days PFS Medical History Diabetes Finger fracture, right Acute eczema High cholesterol High blood pressure Surgical History History of arthroscopic surgery of shoulder Hx of hand surgery (05/26/23) History of right cataract surgery Family History Mother Heart attack Social History (Updated 01/28/25 @ 08:56 by Alcira Paez MA) Household Members: Spouse Housing: House Are you a primary intensive care nurse to a significant other at home: No Do you presently have visiting nurse or other home services: No 75 years or older and lives alone: No Alcohol intake: current Patient Tobacco Use Status: Never used Tobacco e-Cigarette/Vaping Use: Never Used Second Hand Smoke Exposure: No service: No Current occupational status: retired 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 Cognitive needs: No Hearing needs: No Vision needs: No Physical Exam Vital Signs: BMI result Body Mass Index 29.3 Const Other: Well-nourished well-developed very friendly male awake alert and oriented x3 in no acute distress Neck Other: Cervical spine examination shows right-sided paraspinal muscle tenderness, pain with range of motion, positive Spurling's test, 4/5 strength with testing of his right biceps and wrist extensors when compared to 5/5 strength on his left side Extrem Other: Right shoulder examination shows slightly decreased range of motion when compared to his left shoulder, 4+ out of 5 strength with supraspinatus testing, positive impingement signs, no instability Results Reviewed Results Reviewed: X-rays of the patient's right shoulder show severe acromioclavicular joint narrowing, a type 3 acromion, no acute bony abnormalities Assessment & Plan Assessment & Plan (1) Right shoulder pain: Code(s): M25.511 - Pain in right shoulder Category: Medical Plan Ms. Agudelo presents with progressively worsening neck pain which radiates down to his right hand as well as associated right upper extremity weakness possibly due to cervical stenosis or a disc herniation. Thus, I will send the patient for an MRI of his cervical spine for further evaluation. I will contact him by phone once the MRI results are available. He also has right shoulder pain due to impingement syndrome. At this point his right shoulder pain is tolerable to him. Feel free to call me at any time should questions regarding his orthopedic management arise. I spent 22 minutes in reviewing the patient's records and imaging studies, seeing the patient and documenting in the medical record. Orders: Orders MR cervical spine wo con 03/20/25 M54.2 - Cervicalgia XR shoulder RT min 2V Today M25.511 - Pain in right shoulder Coding Level of Care Code Est Pt Level 3 (90216) Complex EM visit Add On G2211 Diagnoses Right shoulder pain M25.511
[2025-03-19 11:40] VITALS: BMI 29.3
== END 2025-03-19 12:00 | disposition home or self-care (01) ==
LOC: HO.HOS 11:08
PROVIDERS: PCP Family Medicine; Visit Provider Orthopaedic Surgery
DX: M25.511 Pain in right shoulder (principal)
CPT/HCPCS: 99213

== ENCOUNTER → 2025-03-19 11:28 | Outpatient (BNV) | payer BC, SELFPAY | PROVIDERS: Visit Provider Radiology Diagnostic Radiology | DX: M19.011 Primary osteoarthritis, right shoulder (principal) | CPT/HCPCS: 73030 ==

== ENCOUNTER 2025-04-04 09:18 | Outpatient (AMB) | payer BC, SELFPAY ==
--- NOTE | 2025-04-04 09:40 | MHC.PC.OV ---
Vital Signs 04/04/25 09:47 Height 5 ft 11 in Weight 211 lb BMI 29.4 BP 126/80 Blood Pressure Location Rt brachial Position Sitting Respiration 14 Pulse 79 Pulse Source Pulse Oximeter Temp 97.5 F Temp Source Temporal Artery Scan Pulse Oximetry (%) 96 Oxygen Delivery Method Room Air Intake Visit Reasons: f/u diabetes Intake Note: Rob presents in the office today for a follow up to diabetes. Allergies Seasonal Allergies Allergy (Verified 04/04/25 09:42) Runny Nose Medication List - Last Reconciled 04/04/25 by Chaitanya Gleason MD amlodipine 10 mg PO DAILY 90 days blood pressure monitor Automatic, Digital. Dx: I10. Daily As directed, 999 days/lifetime cholecalciferol (vitamin D3) (Vitamin D3) 6,000 units PO DAILY clotrimazole 1% (Antifungal (clotrimazole)) 1 appl topical BID 2 weeks ezetimibe (Zetia) 10 mg PO DAILY 90 days famotidine 40 mg PO DAILY PRN 30 days [Fish Oil PO DAILY] glipizide 5 mg PO QAM 90 days hydrocortisone 1% (Cortisone (hydrocortisone)) 1 appl topical BID PRN 5 days losartan-hydrochlorothiazide 100-25 mg 1 tab PO DAILY 90 days mecobalamin (vitamin B12) mcg PO metformin 1,000 mg PO BID 30 days metoprolol succinate ER 50 mg PO DAILY 90 days naproxen (Naprosyn) 500 mg PO Q12H PRN sildenafil 50 mg PO DAILY PRN 30 days tadalafil (Cialis) 10 mg PO DAILY PRN 30 days tadalafil 5 mg PO DAILY 90 days tirzepatide (Mounjaro) 2.5 mg (0.5 mL) subcut QWEEK 28 days Tobacco use date assessed: 04/04/25 Fall risk assessment: No Falls in past year Last assessed Fall Risk: 04/04/25 Dental Screening Dental Screen Date: 04/04/25 Did you have a dental visit in the last 12 months?: Yes Did you have a dental problem in the last 6 months where you did not have access to dental care?: No Was dental information given to patient?: Patient has dentist HPI f/u diabetes HPI Details 70 y/o male presents to f/u diabetes. A1c today 04/04/25 6.9%. He is on metformin 1000mg b.i.d, Mounjaro 2.5mg but pt notes he has not tried Mounjaro. Blood pressure today 126/80, 79p. He is on amlodipine 10mg, losartan-HCTZ 100-25mg, metoprolol 50mg daily. LDL cholesterol had been greater than 170 at last check. Had been unable to tolerate statins. He has not trialed zetia yet. Pt reports complaints of symptoms of allergic rhinitis. HPI Comments History of Present Illness Details Documentation assistance for Chaitanya Gleason MD, was provided by Allen Franco,? [employer] on 04/04/2025 at 10:39 AM EST. I, Dr. Gleason, have read, observed, and verified documentation. [facility] Medical History Diabetes Finger fracture, right Acute eczema High cholesterol High blood pressure Surgical History History of arthroscopic surgery of shoulder Hx of hand surgery (05/26/23) History of right cataract surgery Family History Mother Heart attack Social History (Updated 04/04/25 @ 09:47 by Alcira Paez CMA) Household Members: Spouse Housing: House Are you a primary pet caregiver to a significant other at home: No Do you presently have visiting nurse or other home services: No 75 years or older and lives alone: No Alcohol intake: current Patient Tobacco Use Status: Never used Tobacco e-Cigarette/Vaping Use: Never Used Second Hand Smoke Exposure: No Use of substances other than those prescribed or required for medical reasons: No service: No Current occupational status: retired 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 Hoang Ndiaye, Anita Pryor, Napoleon Cespedes and colleagues, with an educational chuck from [employer]. Review of Systems Const Denies chills, Denies fatigue, Denies fever(s), Denies headache(s) and Denies weakness ENT Denies dizziness and Denies headache(s) Card Denies dyspnea Resp Denies cough, Denies dyspnea, Denies wheezing and Denies other (shortness of breath) Musc Denies numbness and Denies tingling Neuro Denies dizziness, Denies headache(s), Denies numbness, Denies tingling and Denies weakness Psych Denies anxiety and Denies depression Endo Denies fatigue Aller/Immun Denies wheezing Physical exam (Primary Care) Vital Signs: Last Vital Signs Temp 97.5 F 04/04/25 09:47 Pulse 79 04/04/25 09:47 Resp 14 04/04/25 09:47 BP 126/80 04/04/25 09:47 Pulse Ox 96 04/04/25 09:47 Oxygen Delivery Method Room Air 04/04/25 09:47 BMI result Body Mass Index 29.4 Tobacco/Smoking Status: Tobacco use Status Tobacco use date assessed 04/04/25 04/04/25 09:50 Patient Tobacco Use Status Never used Tobacco 04/04/25 09:47 e-Cigarette/Vaping Use Never Used 04/04/25 09:47 Thrive Assessment: Date of Thrive Assessment Date Thrive assessed 07/05/24 04/04/25 09:42 Const General: well developed; No acute distress Nutritional Appearance: well nourished Orientation/consciousness: patient oriented x3 HENMT Head: Yes normocephalic and Yes atraumatic Eyes General: appearance normal, both eyes and all related structures Pupils: Equal, round and reactive pupils present EOM: EOMs intact bilaterally Resp Effort & Inspection: normal respiratory effort Neuro General: patient oriented x3 and gait normal Cranial nerves: Yes Equal, round and reactive pupils present Psych Affect: normal affect Results AMB Hemoglobin A1c AMB Hemoglobin A1c 6.9 % Last Edit by Alcira Paez CMA on 04/04/25 10:00 Results Reviewed Results Reviewed: Laboratory Last Values Hgb A1c (Clinic) 6.9 % (4.0-6.0) H 04/04/25 09:35 Coding Level of Care Code Est Pt Level 4 (72037) Diagnoses Diabetes E11.9 Hyperlipidemia E78.5 Allergic rhinitis J30.9 Erectile dysfunction N52.9 Assessment & Plan Assessment & Plan (1) Diabetes: Code(s): E11.9 - Type 2 diabetes mellitus without complications Category: Medical Plan: A1c now 6.9% on metformin and glipizide. Goal is less than 7% Patient did not try Mounjaro and we will remove this from his med list Continue current medications Continue diabetic diet (2) Hyperlipidemia: Code(s): E78.5 - Hyperlipidemia, unspecified Category: Medical Plan: LDL cholesterol greater than 170 at last check. Patient has tried statins which he did not tolerate Send script for Zetia but patient has not tried this yet. Encouraged him to try the medication Will recheck lipids after he has begun this medication (3) Allergic rhinitis: Code(s): J30.9 - Allergic rhinitis, unspecified Category: Medical Plan: Patient describes symptoms of allergic rhinitis He requests Z-Randal discussed that this does not fit with the symptoms of a sinus infection. Trial Zyrtec Nasal saline Conservative care and change of environment were discussed (4) Erectile dysfunction: Code(s): N52.9 - Male erectile dysfunction, unspecified Category: Medical Plan: He can try 10 mg of tadalafil daily Orders: Orders AMB Hemoglobin A1c Today E11.65 - Type 2 diabetes mellitus with hyperglycemia, E11.9 - Type 2 diabetes mellitus without complications Medications: Changed From tadalafil 5 mg PO DAILY 90 days 90 tabs 0RF N32.89 - Other specified disorders of bladder To tadalafil 10 mg PO DAILY 90 tabs 0RF 90 days N32.89 - Other specified disorders of bladder Discontinued tirzepatide (Mounjaro) for 4 weeks Discontinued Reason: Doctor's Order 2.5 mg (0.5 mL) subcut QWEEK 28 days 2 mL 3RF
[2025-04-04 09:47] VITALS: BP 126/80; PULSE 79; RESP 14; TEMP 36.4; O2SAT 96; BMI 29.4
== END 2025-04-04 10:39 | disposition home or self-care (01) ==
LOC: HO.HMCFM 09:19
PROVIDERS: PCP Family Medicine; Visit Provider Family Medicine
DX: E11.9 Type 2 diabetes mellitus without complications (principal); E78.5 Hyperlipidemia, unspecified; J30.9 Allergic rhinitis, unspecified; N52.9 Male erectile dysfunction, unspecified; E11.65 Type 2 diabetes mellitus with hyperglycemia

== ENCOUNTER → 2025-04-04 09:18 | Outpatient (BNVA) | payer BC, SELFPAY | PROVIDERS: PCP Family Medicine; Visit Provider Family Medicine | DX: E11.65 Type 2 diabetes mellitus with hyperglycemia (principal); E78.5 Hyperlipidemia, unspecified; J30.9 Allergic rhinitis, unspecified; N52.9 Male erectile dysfunction, unspecified; N32.89 Other specified disorders of bladder | CPT/HCPCS: 83036 ==